=== PATIENT | male | born 1990 | race African-American/Black ===

== ENCOUNTER 2016-04-05 18:20 | Emergency (ER) | payer MEDICAID ==
[~2016-04-05] VITALS: Ht 188 cm; Wt 68.0 kg
[~2016-04-05 18:20] MED LIST: ONDA4TAB7 SL; Z.0.HUMULIN REGULARU SQ; [UNRECOGNIZED DRUG - REMARK]
[2016-04-05 18:24] VITALS: BP 134/81; PULSE 88; RESP 16; TEMP 98.5; O2SAT 98
[2016-04-05] MEDS ORDERED: SODIUM CHLOR 0.9% 1000 ML INJ 1,000 ML IV ONE ×2 (19:30→20:00)
[2016-04-05] MEDS ORDERED: SODIUM CHLORIDE 0.9% FLUSH 5 ML FLUSH IVF PRN (19:30)
[2016-04-05] MEDS ORDERED: INSU100V2 SQ ×3 (19:35→21:50)
[2016-04-05] MEDS ORDERED: HIV (19:36)
[2016-04-05 19:59] LABS: BLOOD GAS VENOUS BASE EXCESS 4.7 mmol/L (-2-2); BLOOD GAS VENOUS HCO3 29 mmol/L (22-26); BLOOD GAS VENOUS O2 HGB SAT 53 % (70-76); BLOOD GAS VENOUS PCO2 47 mmHg (44-48); BLOOD GAS VENOUS PO2 29 mmHg (35-40); BLOOD GAS VENOUS pH 7.41 (7.360-7.400); CRITICAL VALUE YES; TEMP CORR TO 98.6
[2016-04-05 20:00] LABS: FIO2 21 %; STAT YES
[2016-04-05 20:01] VITALS: O2SAT 98
--- NOTE | 2016-04-05 20:02 | PD ---
HPI Chief Complaint: Diabetic Time Seen by Provider: 19:30 Travel History International Travel<30 days: No Contact w/Intl Traveler<30days: No Traveled to known affect area: No History of Present Illness HPI 25-year-old man who presents to the emergency department complaining of elevated blood sugar. Reports been out of his insulin for the past 3 weeks. He went to primary care doctor and a blood sugar in the 600s so is referred to the emergency department. Complains of headache weakness dizziness, as well as polyuria and polydipsia. His a history of HIV, reports his last CD4 count was "good". Denies history of AIDS or opportunistic infections. He states he takes a medicine twice daily but does not read the name of it. He does state he has been taking his HIV medications. History Past Medical History Narrative Medical HIV Diabetes Influenza Vaccination: Yes Social History Alcohol Use: No Tobacco Use: No Allergies-Medications (Allergen,Severity, Reaction): Coded Allergies: Aspirin (Verified Allergy, Severe, SWELLING, 04/05/16) Reported Meds & Prescriptions Reported Meds & Active Scripts Active Reported [Hiv ] Humulin R Inj (Insulin Human Regular) 1,000 Unit/10 Ml Vial 2-10 Units SQ TIDAC PRN IMPORTANT TO EAT A MEAL WITHIN 30-60 MINUTES OF DOSING Humulin R Inj (Insulin Human Regular) 1,000 Unit/10 Ml Vial 1-9 Units SQ ACHS Max dose at bedtime( )units; sugars < 70(0)units; sugars 150-199,(1)unit; sugars 200-249(3)units; sugars 250-299,(5)units; sugars 300-349(7)units; sugars more than 349(9)units. Review of Systems Except as stated in HPI: all other systems reviewed are Neg Physical Exam Narrative GENERAL: 25-year-old man, no acute distress. SKIN: Warm and dry. HEAD: Atraumatic. Normocephalic. EYES: Pupils equal and round. No scleral icterus. No injection or drainage. ENT: No nasal bleeding or discharge. Mucous membranes pink and moist. NECK: Trachea midline. No JVD. CARDIOVASCULAR: Regular rate and rhythm. No murmur appreciated. RESPIRATORY: Minimal tachypnea. No accessory muscle use. Clear to auscultation. Breath sounds equal bilaterally. GASTROINTESTINAL: Abdomen soft, non-tender, nondistended. Hepatic and splenic margins not palpable. MUSCULOSKELETAL: No obvious deformities. No edema. NEUROLOGICAL: Awake and alert. No obvious cranial nerve deficits. Motor grossly within normal limits. Normal speech. Data Data Last Documented VS Vital Signs Date Time Temp Pulse Resp B/P Pulse Ox O2 Delivery O2 Flow Rate FiO2 04/05/16 20:01 98 Room Air 04/05/16 18:24 98.5 88 16 134/81 Orders Complete Blood Count With Diff (04/05/16 19:30) Comprehensive Metabolic Panel (04/05/16 19:30) Beta Hydroxybutyrate (Acetone) (04/05/16 19:30) Urinalysis - C+S If Indicated (04/05/16 19:30) Blood Gas Venous (Vbg) (04/05/16 19:30) Ecg Monitoring (04/05/16:30) Iv Access Insert/Monitor (04/05/16:30) Oximetry (04/05/16 19:30) NPO (04/05/16 19:30) Sodium Chlor 0.9% 1000 Ml Inj (Ns 1000 M (04/05/16 19:30) Sodium Chlor 0.9% 1000 Ml Inj (Ns 1000 M (04/05/16 20:00) Sodium Chloride 0.9% Flush (Ns Flush) (04/05/16 19:30) Insulin Aspart Inj (Novolog Inj) (04/05/16 20:15) Labs Laboratory Tests Test 04/05/16 04/05/16 19:48 21:03 White Blood Count 3.8 TH/MM3 Red Blood Count 4.96 MIL/MM3 Hemoglobin 13.6 GM/DL Hematocrit 39.8 % Mean Corpuscular Volume 80.2 FL Mean Corpuscular Hemoglobin 27.5 PG Mean Corpuscular Hemoglobin 34.2 % Concent Red Cell Distribution Width 13.0 % Platelet Count 201 TH/MM3 Mean Platelet Volume 8.8 FL Neutrophils (%) (Auto) 51.3 % Lymphocytes (%) (Auto) 23.8 % Monocytes (%) (Auto) 11.6 % Eosinophils (%) (Auto) 12.5 % Basophils (%) (Auto) 0.8 % Neutrophils # (Auto) 2.0 TH/MM3 Lymphocytes # (Auto) 0.9 TH/MM3 Monocytes # (Auto) 0.4 TH/MM3 Eosinophils # (Auto) 0.5 TH/MM3 Basophils # (Auto) 0.0 TH/MM3 CBC Comment DIFF FINAL Differential Comment Blood Gas Puncture Site Blood Gas Patient Temperature 98.6 Venous Blood pH 7.41 Venous Blood Partial Pressure 47 mmHg CO2 Venous Blood Partial Pressure 29 mmHg O2 Venous Blood HCO3 29 mmol/L Venous Blood Oxygen Saturation 53 % Venous Blood Oxygen Content 10.0 Vol % Venous Blood Base Excess 4.7 mmol/L Blood Gas Inspired Oxygen 21 % Sodium Level 134 MEQ/L Potassium Level 3.9 MEQ/L Chloride Level 98 MEQ/L Carbon Dioxide Level 28.8 MEQ/L Anion Gap 7 MEQ/L Blood Urea Nitrogen 8 MG/DL Creatinine 1.06 MG/DL Estimat Glomerular Filtration 102 ML/MIN Rate Random Glucose 323 MG/DL Calcium Level 8.8 MG/DL Total Bilirubin 0.5 MG/DL Aspartate Amino Transf 14 U/L (AST/SGOT) Alanine Aminotransferase 18 U/L (ALT/SGPT) Alkaline Phosphatase 102 U/L Total Protein 9.3 GM/DL Albumin 3.8 GM/DL B-Hydroxybutyrate 0.60 MMOL/L Urine Color YELLOW Urine Turbidity CLEAR Urine pH 6.5 Urine Specific Frakes 1.041 Urine Protein NEG mg/dL Urine Glucose (UA) 1000 mg/dL Urine Ketones 10 mg/dL Urine Occult Blood NEG Urine Nitrite NEG Urine Bilirubin NEG Urine Urobilinogen LESS THAN 2.0 MG/DL Urine Leukocyte Esterase MOD Urine WBC 5 /hpf Urine Squamous Epithelial <1 /hpf Cells Microscopic Urinalysis Comment CULT NOT INDICATED MDM Medical Decision Making Medical Screen Exam Complete: Yes Emergency Medical Condition: Yes Interpretation(s) CBC remarkable for white count 3.8, absolute lymphocyte count 0.9 CMP is unremarkable, glucose 323 VBG 7.41, base excess 4.7 UA remarkable for glucose in the urine Beta hydroxybutyrate 0.6 Differential Diagnosis Hyperglycemia, dehydration, occult infection, other Narrative Course Medical decision making 25-year-old man with hyperglycemia, without evidence significant decay. Likely dehydration. Will be given IV fluids, insulin, reassess. Diagnosis Primary Impression: Hyperglycemia Additional Instructions: Take insulin as prescribed. HER primary doctor in the next 2-4 days. Return to the emergency department for any new or worsening symptoms. Med/Other Pt SpecificInfo: Prescription(s) given Scripts Insulin Human Regular Inj (Humulin R Inj)1,000 Unit/10 Ml Vial1-9 Units SQ ACHS #10 ML Max dose at bedtime( )units; sugars < 70(0)units; sugars 150-199,(1)unit; sugars 200-249(3)units; sugars 250-299,(5)units; sugars 300-349(7)units; sugars more than 349(9)units. Prov:Riaz Collins MD 04/05/16 Disposition: 01 DISCHARGE HOME Condition: Stable Riaz Collins MD Apr 05, 2016 20:02
[2016-04-05 20:07] LABS: BASOPHIL % 0.8 % (0.0-2.0); EOSINOPHIL # 0.5 TH/MM3 (0-0.4); EOSINOPHIL % 12.5 % (0.0-4.0); HEMATOCRIT 39.8 % (39.0-51.0); HEMO FLAGS DIFF FINAL; LYMPH % 23.8 % (9.0-44.0); LYMPHOCYTE # 0.9 TH/MM3 (1.0-4.8); MEAN CELL VOLUME 80.2 FL (80.0-100.0); MEAN CORPUSCULAR HEMOGLOBIN 27.5 PG (27.0-34.0); MEAN CORPUSCULAR HGB CONC 34.2 % (32.0-36.0); MONO % 11.6 % (0.0-8.0); NEUT % 51.3 % (16.0-70.0); PLATELET COUNT 201 TH/MM3 (150-450); RED BLOOD COUNT 4.96 MIL/MM3 (4.50-5.90); WHITE BLOOD COUNT 3.8 TH/MM3 (4.0-11.0)
[2016-04-05] MEDS ORDERED: INSULIN ASPART 1,000 UNITS/10 ML VIAL SQ ONE (20:15)
[2016-04-05 20:26] LABS: ALKALINE PHOSPHATASE 102 U/L (45-117); ALT (GPT) 18 U/L (12-78); ANION GAP 7 MEQ/L (5-15); AST (GOT) 14 U/L (15-37); BICARBONATE 28.8 MEQ/L (21.0-32.0); BLOOD UREA NITROGEN 8 MG/DL (7-18); CHLORIDE 98 MEQ/L (98-107); GLOMERULAR FILTRATION RATE 102 ML/MIN (>89); POTASSIUM 3.9 MEQ/L (3.5-5.1); SODIUM (NA) 134 MEQ/L (136-145); TOTAL BILIRUBIN ADULT 0.5 MG/DL (0.2-1.0)
[2016-04-05 21:36] LABS: BLOOD, URINE NEG (NEG); COMMENT (UR) CULT NOT INDICATED; CULTURE IF INDICATED CULT NOT INDICATED; GLUCOSE,URINE 1000 mg/dL (NEG); KETONE, URINE 10 mg/dL (NEG); NITRITE,URINE NEG (NEG); PH, URINE 6.5 (5.0-8.5); SQUAMOUS EPITHELIAL CELL URINE <1 /hpf (0-5); URINE COLOR YELLOW (YELLW/STRAW)
[2016-04-05 21:51] VITALS: BP 130/88
== END 2016-04-05 22:30 | disposition home or self-care (01) ==
LOC: NEPE 18:20
DX: E11.65 Type 2 diabetes mellitus with hyperglycemia (principal); B20 Human immunodeficiency virus [HIV] disease; Z79.4 Long term (current) use of insulin
CPT/HCPCS: 80053; 81001; 82010; 82805; 85025; 96360; 96372; 99284; J1815; J7030

== ENCOUNTER 2016-06-12 00:30 | Emergency (ER) | payer MEDICAID ==
[~2016-06-12] VITALS: Ht 188 cm; Wt 82.0 kg
[~2016-06-12 00:30] MED LIST changes: +HIV; +INSU100V2 SQ; -ONDA4TAB7 SL; -Z.0.HUMULIN REGULARU SQ; -[UNRECOGNIZED DRUG - REMARK]
[2016-06-12 00:33] VITALS: BP 128/72; PULSE 94; RESP 14; TEMP 97.5; O2SAT 98
--- NOTE | 2016-06-12 04:00 | PD ---
HPI Chief Complaint: Cold / Flu Symptoms Time Seen by Provider: 03:26 Travel History International Travel<30 days: No Contact w/Intl Traveler<30days: No Traveled to known affect area: No History of Present Illness HPI 25-year-old male complains of body ache, chest wall pain mild dry cough and nausea and abdominal cramping. Patient states the symptoms started about 2 hours prior coming to the emergency room. Patient denies any vomiting or diarrhea. Patient denies dysuria or frequency. Patient denies any fever chills. Patient states the chest wall pain is sharp pain and worse with deep inspiration. PFSH Past Medical History Asthma: Yes Autoimmune Disease: Yes (HIV) Blood Disorders: No Cancer: No Cardiovascular Problems: No COPD: No Diabetes: Yes Patient Takes Glucophage: Yes (METFORMIN 06/11/16 0830) Diminished Hearing: No Endocrine: Yes Gastrointestinal Disorders: Yes (GASTRITIS) Genitourinary: No Immune Disorder: No Implanted Vascular Access Dvce: No Musculoskeletal: No Neurologic: No Psychiatric: No Reproductive: No Respiratory: Yes Sleep Apnea: No Thyroid Disease: No Past Surgical History Genitourinary Surgery: Yes (SCOPE) Pacemaker: No Other Surgery: Yes (ankle) Social History Alcohol Use: Yes (RARE) Tobacco Use: No Substance Use: No Allergies-Medications (Allergen,Severity, Reaction): Coded Allergies: Aspirin (Verified Allergy, Severe, SWELLING, 06/12/16) Reported Meds & Prescriptions Reported Meds & Active Scripts Active Humulin R Inj (Insulin Human Regular) 1,000 Unit/10 Ml Vial 1-9 Units SQ ACHS Max dose at bedtime( )units; sugars < 70(0)units; sugars 150-199,(1)unit; sugars 200-249(3)units; sugars 250-299,(5)units; sugars 300-349(7)units; sugars more than 349(9)units. Reported [Hiv ] Humulin R Inj (Insulin Human Regular) 1,000 Unit/10 Ml Vial 2-10 Units SQ TIDAC PRN IMPORTANT TO EAT A MEAL WITHIN 30-60 MINUTES OF DOSING Review of Systems General / Constitutional: No: Fever Eyes: No: Visual changes HENT: No: Headaches Cardiovascular: Positive: Chest Pain or Discomfort Respiratory: No: Shortness of Breath Gastrointestinal: No: Abdominal Pain Genitourinary: No: Dysuria Musculoskeletal: Positive: Pain Skin: No Rash Neurologic: No: Weakness Psychiatric: No: Depression Endocrine: No: Polydipsia Hematologic/Lymphatic: No: Easy Bruising Physical Exam Narrative GENERAL: Well-nourished, well-developed patient. SKIN: Focused skin assessment warm/dry. HEAD: Normocephalic. EYES: No scleral icterus. No injection or drainage. NECK: Supple, trachea midline. No JVD or lymphadenopathy. CARDIOVASCULAR: Regular rate and rhythm without murmurs, gallops, or rubs. RESPIRATORY: Breath sounds equal bilaterally. No accessory muscle use. GASTROINTESTINAL: Abdomen soft, non-tender, nondistended. MUSCULOSKELETAL: No cyanosis, or edema. BACK: Nontender without obvious deformity. No CVA tenderness. Neurologic exam normal. Data Data Last Documented VS Vital Signs Date Time Temp Pulse Resp B/P Pulse Ox O2 Delivery O2 Flow Rate FiO2 06/12/16 02:52 84 20 99 06/12/16 00:33 97.5 128/72 Orders Influenzae A/B Antigen (06/12/16 03:56) Chest, Single Ap (06/12/16 03:56) Blood Glucose (06/12/16 03:56) MDM Medical Decision Making Medical Screen Exam Complete: Yes Emergency Medical Condition: Yes Interpretation(s) Last Impressions Chest X-Ray 06/12/16 0356 Signed Impressions: Service Date/Time: Sunday, June 12, 2016 03:56 - CONCLUSION: Normal examination. Riaz Briggs MD Differential Diagnosis Differential diagnosis including viral syndrome, bronchitis, pneumonia, gastroenteritis, hyperglycemia, DKA. Narrative Course 25-year-old male with chest wall pain body ache nausea abdominal cramping. Diagnosis Primary Impression: Viral syndrome Patient Instructions: General Instructions Additional Instructions: Tylenol as needed for aching pain and fever. Follow-up with personal physician. Return if worse. Med/Other Pt SpecificInfo: No Meds Exist/No RX given Disposition: DISCHARGE HOME Condition: Stable Aron Licona MD Jun 12, 2016 04:00
--- NOTE | 2016-06-12 04:12 | RADRPT ---
EXAM DATE/TIME: 06/12/2016 03:56 [facility] COMPARISON: CHEST SINGLE AP, March 27, 2014, 0:17. INDICATIONS : Chest pain. MEDICAL HISTORY : None. SURGICAL HISTORY : None. ENCOUNTER: Initial ACUITY: 1 day PAIN SCORE: 0/10 LOCATION: Bilateral chest FINDINGS: A single view of the chest demonstrates the lungs to be symmetrically aerated without evidence of mas s, infiltrate or effusion. The cardiomediastinal contours are unremarkable. Osseous structures are intact. CONCLUSION: Normal examination. Riaz Briggs MD on June 12, 2016 at 4:11 Board Certified Radiologist. This report was verified electronically.
[2016-06-12] MEDS ORDERED: ACETAMINOPHEN 325 MG TAB PO ONE (04:45)
[2016-06-12 06:05] VITALS: BP 117/76
== END 2016-06-12 06:39 | disposition home or self-care (01) ==
LOC: NEPC 00:30
DX: B34.9 Viral infection, unspecified (principal); B20 Human immunodeficiency virus [HIV] disease; E11.9 Type 2 diabetes mellitus without complications; Z79.4 Long term (current) use of insulin
CPT/HCPCS: 71010; 87804; 99284

== ENCOUNTER 2016-06-14 10:54 | Emergency (ER) | payer MEDICAID ==
[~2016-06-14] VITALS: Ht 188 cm; Wt 81.5 kg
[2016-06-14 10:57] VITALS: BP 133/80; PULSE 74; RESP 18; TEMP 98; O2SAT 99
--- NOTE | 2016-06-14 11:11 | PD ---
HPI . left sided jaw pain upper and lower Chief Complaint: Oral / Dental Pain or Problem Time Seen by Provider: 11:10 Travel History International Travel<30 days: No Contact w/Intl Traveler<30days: No Traveled to known affect area: No History of Present Illness HPI 25-year-old male with history of diabetes and HIV here for complaints of left upper and lower jaw pain. Patient tells me that he does have bad teeth and has seen a dentist, but was told that he needs to wait for test results before he can get further treatment. When asked about what test results he tells me that an evaluation is pending whether or not he will actually need orthodontics. Patient is complaining of left-sided jaw pain that is not radiating elsewhere. He rates it as an aching & throbbing sensation. Currently the pain is 6/10. He has not tried any [id number] medications. He is somewhat of a poor historian. He tells me that he does not have HIV, that he only has a virus. He is following with a doctor in [place]. He denies any fever or chills. He has no other complaints. PFSH Past Medical History Asthma: Yes Autoimmune Disease: Yes (HIV) Blood Disorders: No Cancer: No Cardiovascular Problems: No COPD: No Diabetes: Yes Diminished Hearing: No Endocrine: Yes Gastrointestinal Disorders: Yes (GASTRITIS) Genitourinary: No Immune Disorder: No Implanted Vascular Access Dvce: No Musculoskeletal: No Neurologic: No Psychiatric: No Reproductive: No Respiratory: Yes Sleep Apnea: No Thyroid Disease: No Past Surgical History Genitourinary Surgery: Yes (SCOPE) Pacemaker: No Other Surgery: Yes (ankle) Social History Alcohol Use: Yes (RARE) Tobacco Use: No Substance Use: No Allergies-Medications (Allergen,Severity, Reaction): Coded Allergies: Aspirin (Verified Allergy, Severe, SWELLING, 06/14/16) Reported Meds & Prescriptions Reported Meds & Active Scripts Active Humulin R Inj (Insulin Human Regular) 1,000 Unit/10 Ml Vial 1-9 Units SQ ACHS Max dose at bedtime( )units; sugars < 70(0)units; sugars 150-199,(1)unit; sugars 200-249(3)units; sugars 250-299,(5)units; sugars 300-349(7)units; sugars more than 349(9)units. Reported [Hiv ] Humulin R Inj (Insulin Human Regular) 1,000 Unit/10 Ml Vial 2-10 Units SQ TIDAC PRN IMPORTANT TO EAT A MEAL WITHIN 30-60 MINUTES OF DOSING Review of Systems General / Constitutional: No: Fever Eyes: No: Visual changes HENT: Positive: Dental Difficulties, No: Headaches Cardiovascular: No: Chest Pain or Discomfort Respiratory: No: Shortness of Breath Gastrointestinal: No: Abdominal Pain Genitourinary: No: Dysuria Musculoskeletal: No: Pain Skin: No Rash Neurologic: No: Weakness Psychiatric: No: Depression Endocrine: No: Polydipsia Hematologic/Lymphatic: No: Easy Bruising Physical Exam Narrative GENERAL: AAO x 3, no acute distress, Well-nourished, well-developed patient. SKIN: Warm and dry. No visible rashes or bruising. HEAD: Normocephalic and atraumatic. EYES: No scleral icterus. No injection or drainage. ENT: No nasal drainage noted. Mucous membranes pink. Airway patent. Very poor dentition. Multiple missing teeth throughout oral cavity. On the upper left and lower left there are multiple dental caries, rotting teeth and broken teeth. #20, 19, 18, 17, 16, 15, 14 and 13 are all affected fluid collection. No definitive abscess. NECK: Supple, trachea midline. No JVD. Lymphadenopathy CARDIOVASCULAR: Regular rate and rhythm without murmurs, gallops, or rubs. RESPIRATORY: Breath sounds equal bilaterally. No accessory muscle use. No rhonchi or rales. GASTROINTESTINAL: Visual inspection is normal EXTREMITIES: No cyanosis or edema. BACK: Nontender without obvious deformity. No CVA tenderness. PSYCH: AAO x 3, normal affect. Data Data Last Documented VS Vital Signs Date Time Temp Pulse Resp B/P Pulse Ox O2 Delivery O2 Flow Rate FiO2 06/14/16 10:57 98.0 74 18 133/80 99 MDM Medical Decision Making Medical Screen Exam Complete: Yes Emergency Medical Condition: Yes Medical Record Reviewed: Yes Differential Diagnosis Dentalgia, dental caries, less likely oral abscess Narrative Course 25-year-old male with history of diabetes and HIV here for complaints of left upper and lower jaw pain. Patient tells me that he does have bad teeth and has seen a dentist, but was told that he needs to wait for test results before he can get further treatment. When asked about what test results he tells me that an evaluation is pending whether or not he will actually need orthodontics. Patient is complaining of left-sided jaw pain that is not radiating elsewhere. He rates it as an aching & throbbing sensation. Currently the pain is 6/10. He has not tried any [id number] medications. He is somewhat of a poor historian. He tells me that he does not have HIV, that he only has a virus. He is following with a doctor in [place]. He denies any fever or chills. He has no other complaints. Patient seen and examined. He has multiple dental caries, rotting teeth and broken teeth. He does not have any type of fluid collection or abscess. He does not have any evidence of cellulitis. He has no lymphadenopathy. He needs to see a dentist immediately. I've advised him to try to reach out to his dentist as soon as possible for further care and treatment. I've also advised him to follow up with his infectious disease doctor if they can as they can possibly help him make arrangements to get treatment. He can use [id number] pain medications as needed. I've explained to him that he does not need antibiotics as there is no active infection. Patient verbalized understanding of instructions, questions were answered, and thanked me for their care. I advised them if their condition worsens, please return to the nearest emergency room for further care. Diagnosis Primary Impression: Dentalgia Additional Impression: Dental caries Patient Instructions: General Instructions Additional Instructions: Please see a dentist as soon as possible for extractions of these teeth. You can use Tylenol and Motrin as needed for pain. Disposition: 01 DISCHARGE HOME Condition: Stable Lakeisha Guerra Jun 14, 2016 11:11
== END 2016-06-14 11:28 | disposition home or self-care (01) ==
LOC: NEPK 10:54
DX: K02.9 Dental caries, unspecified (principal); E11.9 Type 2 diabetes mellitus without complications; R68.84 Jaw pain; J45.909 Unspecified asthma, uncomplicated
CPT/HCPCS: 99283

== ENCOUNTER 2016-07-06 11:44 | Emergency (ER) | payer MEDICAID ==
[~2016-07-06] VITALS: Ht 188 cm; Wt 72.0 kg
[2016-07-06 11:45] VITALS: BP 119/81; PULSE 99; RESP 17; TEMP 98.2; O2SAT 98
[2016-07-06] MEDS ORDERED: SODIUM CHLOR 0.9% 1000 ML INJ 1,000 ML IV ONE ×2 (12:13→12:43)
[2016-07-06] MEDS ORDERED: SODIUM CHLORIDE 0.9% FLUSH 10 ML FLUSH IVF PRN (12:15)
[2016-07-06 12:41] VITALS: O2SAT 97
[2016-07-06 12:46] LABS: BASOPHIL % 0.5 % (0.0-2.0); EOSINOPHIL # 0.5 TH/MM3 (0-0.4); EOSINOPHIL % 12.6 % (0.0-4.0); HEMATOCRIT 38.6 % (39.0-51.0); HEMO FLAGS DIFF FINAL; LYMPHOCYTE # 0.7 TH/MM3 (1.0-4.8); MEAN CELL VOLUME 79.6 FL (80.0-100.0); MEAN CORPUSCULAR HEMOGLOBIN 27.1 PG (27.0-34.0); MONO % 13.4 % (0.0-8.0); NEUT % 54.5 % (16.0-70.0); PLATELET COUNT 263 TH/MM3 (150-450); RED BLOOD COUNT 4.85 MIL/MM3 (4.50-5.90); RED CELL DISTRIBUTION WIDTH 12.7 % (11.6-17.2); WHITE BLOOD COUNT 3.6 TH/MM3 (4.0-11.0)
--- NOTE | 2016-07-06 12:51 | RADRPT ---
EXAM DATE/TIME: 07/06/2016 12:27 [facility] COMPARISON: CHEST SINGLE AP, June 12, 2016, 3:56. INDICATIONS : Chest pain. MEDICAL HISTORY : HIV Diabetes mellitus type II. SURGICAL HISTORY : None. ENCOUNTER: Initial ACUITY: 1 day PAIN SCORE: 2/10 LOCATION: Bilateral chest FINDINGS: A single view of the chest demonstrates the lungs to be symmetrically aerated without evidence of mas s, infiltrate or effusion. The cardiomediastinal contours are unremarkable. Osseous structures are intact. CONCLUSION: No acute disease. Ayo Qureshi MD on July 06, 2016 at 12:49 Board Certified Radiologist. This report was verified electronically.
[2016-07-06 13:06] LABS: BICARBONATE 29.1 MEQ/L (21.0-32.0)
[2016-07-06 13:08] LABS: BETA-HYDROXYBUTYRATE 0.11 MMOL/L (0.00-0.39)
--- NOTE | 2016-07-06 13:18 | PD ---
HPI Chief Complaint: Diabetic Time Seen by Provider: 12:11 Travel History International Travel<30 days: No Contact w/Intl Traveler<30days: No Traveled to known affect area: No History of Present Illness HPI 18-year-old male states he had chest pain which started while he was walking about an hour or so ago. He states he was walking to get some exercise. There is no radiation. He has had similar chest pain previously. He's had no fever or cough. He reports his blood sugar was 441 this morning. Upon arrival to the ER the blood sugar was 281. Took 5 units insulin at home. He describes a sharp quality. He has no family history of early onset coronary artery disease. He has a history of hypertension. He has no diabetes or hyperlipidemia. He does not smoke. PFSH Past Medical History Asthma: Yes Autoimmune Disease: Yes (HIV) Blood Disorders: No Cancer: No Cardiovascular Problems: No COPD: No Diabetes: Yes Patient Takes Glucophage: No Diminished Hearing: No Endocrine: Yes Gastrointestinal Disorders: Yes (GASTRITIS) Genitourinary: No Immune Disorder: Yes (HIV) Implanted Vascular Access Dvce: No Musculoskeletal: No Neurologic: No Psychiatric: No Reproductive: No Respiratory: Yes Sleep Apnea: No Thyroid Disease: No Past Surgical History Genitourinary Surgery: Yes (SCOPE) Pacemaker: No Other Surgery: Yes (ankle) Social History Alcohol Use: Yes (RARE) Tobacco Use: No Substance Use: No Allergies-Medications (Allergen,Severity, Reaction): Coded Allergies: Aspirin (Verified Allergy, Severe, SWELLING, 07/06/16) Reported Meds & Prescriptions Reported Meds & Active Scripts Active Humulin R Inj (Insulin Human Regular) 1,000 Unit/10 Ml Vial 1-9 Units SQ ACHS Max dose at bedtime( )units; sugars < 70(0)units; sugars 150-199,(1)unit; sugars 200-249(3)units; sugars 250-299,(5)units; sugars 300-349(7)units; sugars more than 349(9)units. Reported [Hiv ] Humulin R Inj (Insulin Human Regular) 1,000 Unit/10 Ml Vial 2-10 Units SQ TIDAC PRN IMPORTANT TO EAT A MEAL WITHIN 30-60 MINUTES OF DOSING Review of Systems Except as stated in HPI: all other systems reviewed are Neg Physical Exam Narrative GENERAL: 26-year-old male well-nourished well-developed no acute distress SKIN: Focused skin assessment warm/dry. HEAD: Atraumatic. Normocephalic. EYES: Pupils equal and round. No scleral icterus. No injection or drainage. ENT: No nasal bleeding or discharge. Mucous membranes pink and moist. NECK: Trachea midline. No JVD. CARDIOVASCULAR: Regular rate and rhythm. No murmur appreciated. No tenderness along the chest wall. RESPIRATORY: No accessory muscle use. Clear to auscultation. Breath sounds equal bilaterally. GASTROINTESTINAL: Abdomen soft, non-tender, nondistended. Hepatic and splenic margins not palpable. MUSCULOSKELETAL: No obvious deformities. No clubbing. No cyanosis. No edema. NEUROLOGICAL: Awake and alert. No obvious cranial nerve deficits. Motor grossly within normal limits. Normal speech. PSYCHIATRIC: Appropriate mood and affect; insight and judgment normal. Data Data Last Documented VS Vital Signs Date Time Temp Pulse Resp B/P Pulse Ox O2 Delivery O2 Flow Rate FiO2 07/06/16 12:41 97 Room Air 07/06/16 11:45 98.2 99 17 119/81 Vital signs reviewed Orders Electrocardiogram (07/06/16 12:13) Complete Blood Count With Diff (07/06/16 12:13) Beta Hydroxybutyrate (Acetone) (07/06/16 12:13) Chest, Single Ap (07/06/16 12:13) Ecg Monitoring (07/06/16 12:13) Iv Access Insert/Monitor (07/06/16 12:13) Oximetry (07/06/16 12:13) NPO (07/06/16 12:13) Sodium Chlor 0.9% 1000 Ml Inj (Ns 1000 M (07/06/16 12:13) Sodium Chlor 0.9% 1000 Ml Inj (Ns 1000 M (07/06/16 12:43) Sodium Chloride 0.9% Flush (Ns Flush) (07/06/16 12:15) Basic Metabolic Panel (Bmp) (07/06/16 12:13) Labs Laboratory Tests Test 07/06/16 12:30 White Blood Count 3.6 TH/MM3 Red Blood Count 4.85 MIL/MM3 Hemoglobin 13.2 GM/DL Hematocrit 38.6 % Mean Corpuscular Volume 79.6 FL Mean Corpuscular Hemoglobin 27.1 PG Mean Corpuscular Hemoglobin 34.0 % Concent Red Cell Distribution Width 12.7 % Platelet Count 263 TH/MM3 Mean Platelet Volume 8.4 FL Neutrophils (%) (Auto) 54.5 % Lymphocytes (%) (Auto) 19.0 % Monocytes (%) (Auto) 13.4 % Eosinophils (%) (Auto) 12.6 % Basophils (%) (Auto) 0.5 % Neutrophils # (Auto) 2.0 TH/MM3 Lymphocytes # (Auto) 0.7 TH/MM3 Monocytes # (Auto) 0.5 TH/MM3 Eosinophils # (Auto) 0.5 TH/MM3 Basophils # (Auto) 0.0 TH/MM3 CBC Comment DIFF FINAL Differential Comment Sodium Level 135 MEQ/L Potassium Level 4.0 MEQ/L Chloride Level 99 MEQ/L Carbon Dioxide Level 29.1 MEQ/L Anion Gap 7 MEQ/L Blood Urea Nitrogen 16 MG/DL Creatinine 0.97 MG/DL Estimat Glomerular Filtration 112 ML/MIN Rate Random Glucose 272 MG/DL Calcium Level 9.0 MG/DL B-Hydroxybutyrate 0.11 MMOL/L MDM Medical Decision Making Medical Screen Exam Complete: Yes Emergency Medical Condition: Yes Medical Record Reviewed: Yes Differential Diagnosis NSTEMI, unstable angina, coronary vasospasm, PE, PTX, aortic dissection, pericarditis, myocarditis, endocarditis, PNA, esophageal disease, aneurysm, musculoskeletal etiologies, anxiety, cocaine/sympathomimetic abuse Narrative Course CBC & BMP Diagram 07/06/16 12:30 Beta hydroxybutyrate 0.11 EKG reveals a sinus rhythm with an early repolarization morphology in the precordial leads which is been seen previously normal axis and intervals The patient reports by reassessment that he has HIV and that he follows up with Dr. Mccain. He has an appointment on the , about 8 days from today. He is unaware of his CD4 count or viral load but states that both are probably good. Upon reassessment at 1:15 PM the patient is resting comfortably and feels better , is alert and in no distress. The patients results and examination findings were discussed. The repeat examination is unremarkable and benign. The history , exam, diagnostic testing, and current condition do not suggest any significant pathology to warrant further testing, continued ED treatment, admission, or surgical evaluation at this point. The vital signs have been stable. The patient does not have uncontrollable pain, intractable vomiting, or other significant symptoms. The patient's condition is stable and appropriate for discharge. The patient will pursue further outpatient evaluation with a primary care physician or other designated or consulting physician as indicated in the discharge instructions. The patient expressed understanding and was agreeable with this plan. Diagnosis Primary Impression: Chest pain Qualified Code: R07.9 - Chest pain, unspecified type Referrals: DR JAMES 2 days Additional Instructions: You have a choice when it comes to health care, and we are glad that you chose [facility]. Hopefully, we have met your expectations on today's visit. You are welcome to return to [facility] at any time, as we are committed to meeting the health care needs of our community. Med/Other Pt SpecificInfo: No Change to Meds Disposition: 01 DISCHARGE HOME Condition: Stable Rajat Franco MD July 06, 2016 13:18
[2016-07-06 14:25] VITALS: BP 121/79; PULSE 64; RESP 16; O2SAT 100
--- NOTE | 2016-07-07 15:03 | EKG ---
Date Performed: 07/06/2016 Time Performed: 12:19:59 PTAGE: 26 years EKG: Sinus rhythm ST ELEVATION, PROBABLY EARLY REPOLARIZATION NONSPECIFIC ST & T-WAVE ABNORMALITY Since previous hosea ng, no significant change noted BORDERLINE ECG PREVIOUS TRACING : 03/19/2014 14.14 DOCTOR: Josephine Kirby Interpretating Date/Time 07/07/2016 15:02:44
== END 2016-07-06 14:28 | disposition home or self-care (01) ==
LOC: NEPC 11:44
DX: R07.9 Chest pain, unspecified (principal); J45.909 Unspecified asthma, uncomplicated; E11.9 Type 2 diabetes mellitus without complications; R94.31 Abnormal electrocardiogram [ECG] [EKG]
CPT/HCPCS: 71010; 80048; 82010; 85025; 93005; 96360; 99285; J7030

== ENCOUNTER 2016-07-11 15:34 | Emergency (ER) | payer MEDICAID ==
[2016-07-11 15:36] VITALS: BP 123/78; PULSE 87; RESP 18; TEMP 98.6; O2SAT 99
--- NOTE | 2016-07-11 15:49 | PD ---
HPI . left knee pain > 4 weeks Chief Complaint: Pain: Acute or Chronic Time Seen by Provider: 15:49 Travel History International Travel<30 days: No Contact w/Intl Traveler<30days: No Traveled to known affect area: No History of Present Illness HPI 26-year-old male here with complaints of left knee pain for over 4 weeks. Patient says he thinks he may have twisted his knee some while back and he is here to have it checked. He tells me that he thinks it may be swollen. He has not yet seen his primary care provider for this issue. He is ambulatory, but tells me that it is painful when he is walking. He denies any recent injury or trauma to the area. He has no other complaints. PFSH Past Medical History Asthma: Yes Autoimmune Disease: Yes (HIV) Blood Disorders: No Cancer: No Cardiovascular Problems: No COPD: No Diabetes: Yes Diminished Hearing: No Endocrine: Yes Gastrointestinal Disorders: Yes (GASTRITIS) Genitourinary: No Immune Disorder: Yes (HIV) Implanted Vascular Access Dvce: No Musculoskeletal: No Neurologic: No Psychiatric: No Reproductive: No Respiratory: Yes Sleep Apnea: No Thyroid Disease: No Past Surgical History Genitourinary Surgery: Yes (SCOPE) Pacemaker: No Other Surgery: Yes (ankle) Social History Alcohol Use: Yes (RARE) Tobacco Use: No Substance Use: No Allergies-Medications (Allergen,Severity, Reaction): Coded Allergies: Aspirin (Verified Allergy, Severe, SWELLING, 07/06/16) Reported Meds & Prescriptions Reported Meds & Active Scripts Active Humulin R Inj (Insulin Human Regular) 1,000 Unit/10 Ml Vial 1-9 Units SQ ACHS Max dose at bedtime( )units; sugars < 70(0)units; sugars 150-199,(1)unit; sugars 200-249(3)units; sugars 250-299,(5)units; sugars 300-349(7)units; sugars more than 349(9)units. Reported [Hiv ] Humulin R Inj (Insulin Human Regular) 1,000 Unit/10 Ml Vial 2-10 Units SQ TIDAC PRN IMPORTANT TO EAT A MEAL WITHIN 30-60 MINUTES OF DOSING Review of Systems General / Constitutional: No: Fever Eyes: No: Visual changes HENT: No: Headaches Cardiovascular: No: Chest Pain or Discomfort Respiratory: No: Shortness of Breath Gastrointestinal: No: Abdominal Pain Genitourinary: No: Dysuria Musculoskeletal: Positive: Pain (left knee pain) Skin: No Rash Neurologic: No: Weakness Psychiatric: No: Depression Endocrine: No: Polydipsia Hematologic/Lymphatic: No: Easy Bruising Physical Exam Narrative GENERAL: AAO x 3, no acute distress, Well-nourished, well-developed patient. SKIN: Warm and dry. No visible rashes or bruising. HEAD: Normocephalic and atraumatic. EYES: No scleral icterus. No injection or drainage. ENT: No nasal drainage noted. Mucous membranes pink. Airway patent. NECK: Supple, trachea midline. No JVD. CARDIOVASCULAR: Regular rate and rhythm without murmurs, gallops, or rubs. RESPIRATORY: Breath sounds equal bilaterally. No accessory muscle use. No rhonchi or rales. GASTROINTESTINAL: Abdomen soft, non-tender, nondistended. EXTREMITIES: No cyanosis or edema. no visible edema, full rom in the Left knee. no crepitus, no laxity BACK: Nontender without obvious deformity. No CVA tenderness. PSYCH: AAO x 3, normal affect. Data Data Last Documented VS Vital Signs Date Time Temp Pulse Resp B/P Pulse Ox O2 Delivery O2 Flow Rate FiO2 07/11/16 15:36 98.6 87 18 123/78 99 Orders ^ Harley Bandage (07/11/16 15:54) MDM Medical Decision Making Medical Screen Exam Complete: Yes Emergency Medical Condition: Yes Medical Record Reviewed: Yes Differential Diagnosis left knee pain, OA, RA, less likely knee fracture Narrative Course 26-year-old male here with complaints of left knee pain for quite some time. Examination done and I do not see any evidence of acute bony injury. It is possible patient may have some underlying arthritis. I discussed these findings with him and recommend follow-up with his primary care provider. We will provide him with an Harley wrap. He can use ibuprofen and Tylenol as needed. Patient verbalized understanding of instructions, questions were answered, and thanked me for their care. I advised them if their condition worsens, please return to the nearest emergency room for further care. Diagnosis Primary Impression: Left knee pain Qualified Code: M25.562 - Chronic pain of left knee Patient Instructions: General Instructions Additional Instructions: You can try [id number] Tylenol or Motrin as needed for pain. Follow-up with primary care provider. Med/Other Pt SpecificInfo: No Change to Meds Disposition: 01 DISCHARGE HOME Condition: Stable Lakeisha Guerra July 11, 2016 15:49
== END 2016-07-11 16:38 | disposition home or self-care (01) ==
LOC: NEPK 15:34
DX: M25.562 Pain in left knee (principal); G89.29 Other chronic pain
CPT/HCPCS: 99282

== ENCOUNTER 2016-07-22 14:00 | Emergency (ER) | payer MEDICAID ==
[~2016-07-22] VITALS: Ht 188 cm; Wt 71.5 kg
[2016-07-22 14:04] VITALS: BP 188/72; PULSE 94; RESP 20; TEMP 97.8; O2SAT 97
--- NOTE | 2016-07-22 14:09 | PD ---
HPI . low blood sugar Chief Complaint: Medical Clearance Time Seen by Provider: 14:09 Travel History International Travel<30 days: No Contact w/Intl Traveler<30days: No Traveled to known affect area: No History of Present Illness HPI 26-year-old male with history of diabetes and HIV here with complaints of hypoglycemia at home. Patient tells me that he had a sausage this morning for breakfast and he felt he had low blood sugar, checked with his Accu-Chek and his sugar was noted to be 70. He decided to come to the emergency department for further evaluation. Accu-Chek was done here and was 80. He has no symptoms. He tells me he's been trying to get diabetes education through his primary care provider, but they have not been able to provide that for him. He has no other complaints. PFSH Past Medical History Asthma: Yes Autoimmune Disease: Yes (HIV) Blood Disorders: No Cancer: No Cardiovascular Problems: No COPD: No Diabetes: Yes Diminished Hearing: No Endocrine: Yes Gastrointestinal Disorders: Yes (GASTRITIS) Genitourinary: No Immune Disorder: Yes (HIV) Implanted Vascular Access Dvce: No Musculoskeletal: No Neurologic: No Psychiatric: No Reproductive: No Respiratory: Yes Sleep Apnea: No Thyroid Disease: No Past Surgical History Genitourinary Surgery: Yes (SCOPE) Pacemaker: No Other Surgery: Yes (ankle) Social History Alcohol Use: Yes (RARE) Tobacco Use: No Substance Use: No Allergies-Medications (Allergen,Severity, Reaction): Coded Allergies: Aspirin (Verified Allergy, Severe, SWELLING, 07/22/16) Reported Meds & Prescriptions Reported Meds & Active Scripts Active Humulin R Inj (Insulin Human Regular) 1,000 Unit/10 Ml Vial 1-9 Units SQ ACHS Max dose at bedtime( )units; sugars < 70(0)units; sugars 150-199,(1)unit; sugars 200-249(3)units; sugars 250-299,(5)units; sugars 300-349(7)units; sugars more than 349(9)units. Reported [Hiv ] Humulin R Inj (Insulin Human Regular) 1,000 Unit/10 Ml Vial 2-10 Units SQ TIDAC PRN IMPORTANT TO EAT A MEAL WITHIN 30-60 MINUTES OF DOSING Review of Systems General / Constitutional: No: Fever Eyes: No: Visual changes HENT: No: Headaches Cardiovascular: No: Chest Pain or Discomfort Respiratory: No: Shortness of Breath Gastrointestinal: No: Abdominal Pain Genitourinary: No: Dysuria Musculoskeletal: No: Pain Skin: No Rash Neurologic: No: Weakness Psychiatric: No: Depression Endocrine: No: Polydipsia Hematologic/Lymphatic: No: Easy Bruising Physical Exam Narrative GENERAL: AAO x 3, no acute distress, Well-nourished, well-developed patient. SKIN: Warm and dry. No visible rashes or bruising. HEAD: Normocephalic and atraumatic. EYES: No scleral icterus. No injection or drainage. ENT: No nasal drainage noted. Mucous membranes pink. Airway patent. NECK: Supple, trachea midline. No JVD. CARDIOVASCULAR: Regular rate and rhythm without murmurs, gallops, or rubs. RESPIRATORY: Breath sounds equal bilaterally. No accessory muscle use. No rhonchi or rales. GASTROINTESTINAL: Abdomen soft, non-tender, nondistended. EXTREMITIES: No cyanosis or edema. BACK: Nontender without obvious deformity. No CVA tenderness. PSYCH: AAO x 3, normal affect. Data Data Last Documented VS Vital Signs Date Time Temp Pulse Resp B/P Pulse Ox O2 Delivery O2 Flow Rate FiO2 07/22/16 14:04 97.8 94 20 188/72 97 Room Air Orders Electrocardiogram (07/22/16 ) Chest, Single Ap (07/22/16 14:34) MDM Medical Decision Making Medical Screen Exam Complete: Yes Emergency Medical Condition: Yes Medical Record Reviewed: Yes Differential Diagnosis DM, hypoglycemia, poor dietary habits, atypical chest pain, anxiety, malingering Narrative Course 26-year-old male here with complaints of hypoglycemia home. Here in the emergency department patient's blood sugar is 80. I provided him with some orange juice. We discussed hypoglycemia. He has been advised to f/u with his PCP. Bp recheck 114/64. 1438: patient about to get discharged and tells staff he is having chest pain. Discussed with Dr. Licona, recommends EKG and CXR, if normal dc. Patient had CP workup a few weeks ago and was normal. He denies any diaphoresis, nausea or vomiting. No radiation of pain elsewhere. Pain is reproducible with palpation to the sternum. CXR and EKG ok Discussed with Dr. Licona, patient cleared for Discharge. Patient verbalized understanding of instructions, questions were answered, and thanked me for their care. I advised them if their condition worsens, please return to the nearest emergency room for further care. Diagnosis Primary Impression: Diabetes Qualified Code: E10.9 - Type 1 diabetes mellitus without complication Additional Impressions: Hypoglycemia Atypical chest pain Patient Instructions: General Instructions Additional Instructions: Please try to attend a diabetes education course. Your primary care provider can help arrange this for you. Return to the emergency department for any worsening symptoms. Med/Other Pt SpecificInfo: No Change to Meds Disposition: 01 DISCHARGE HOME Condition: Stable Lakeisha Guerra July 22, 2016 14:09
--- NOTE | 2016-07-22 15:10 | RADRPT ---
EXAM DATE/TIME: 07/22/2016 14:39 [facility] COMPARISON: CHEST SINGLE AP, July 06, 2016, 12:27. INDICATIONS : Short of breath, pain in chest and entire body, low blood sugar MEDICAL HISTORY : Diabetes mellitus type I. SURGICAL HISTORY : None. ENCOUNTER: Initial ACUITY: 1 day PAIN SCORE: 10/10 LOCATION: Bilateral chest FINDINGS: A single view of the chest demonstrates the lungs to be symmetrically aerated without evidence of mas s, infiltrate or effusion. The cardiomediastinal contours are unremarkable. Osseous structures are intact. CONCLUSION: No acute disease. Ang Martell MD on July 22, 2016 at 15:08 Board Certified Radiologist. This report was verified electronically.
--- NOTE | 2016-07-23 08:24 | EKG ---
Date Performed: 07/22/2016 Time Performed: 14:48:25 PTAGE: 26 years EKG: Sinus rhythm NONSPECIFIC T-WAVE ABNORMALITY BORDERLINE ECG PREVIOUS TRACING : 07/06/2016 12.19 Compared to previous tracing, nonspecific ST abnormalities are now less evident. DOCTOR: Julio Mejia Interpretating Date/Time 07/23/2016 08:23:17
== END 2016-07-22 15:26 | disposition home or self-care (01) ==
LOC: NEPD 14:00
DX: E10.649 Type 1 diabetes mellitus with hypoglycemia without coma (principal); B20 Human immunodeficiency virus [HIV] disease; R07.89 Other chest pain; Z79.4 Long term (current) use of insulin
CPT/HCPCS: 71010; 93005

== ENCOUNTER 2016-07-27 05:31 | Emergency (ER) | payer MEDICAID ==
[2016-07-27 05:33] VITALS: BP 127/84; PULSE 88; RESP 16; TEMP 97.7; O2SAT 99
[2016-07-27] MEDS ORDERED: HIV MED PO (06:12)
[2016-07-27] MEDS ORDERED: MORPHINE SULFATE 4 MG/ML INJ IV PUSH ONE (06:15)
[2016-07-27] MEDS ORDERED: ALUMINUM/MAGNESIUM/SIMETH 30 ML CUP PO ONE (06:15)
[2016-07-27] MEDS ORDERED: ATROPINE/SCOPOLAM/HYOSCYAM/PB ELIXIR 10 ML CUP PO ONE (06:15)
[2016-07-27] MEDS ORDERED: ONDANSETRON HCL 4 MG/2 ML VIAL IVP ONE (06:15)
--- NOTE | 2016-07-27 06:27 | PD ---
HPI Chief Complaint: GI Complaint Time Seen by Provider: 06:06 Travel History International Travel<30 days: No Contact w/Intl Traveler<30days: No Traveled to known affect area: No History of Present Illness HPI 26-year-old male complains of epigastric abdominal pain, nausea vomiting. Patient states the symptoms started about 2 hours prior coming to the emergency room. Patient stated the pain burning pain sharp pain localized around epigastric area. Patient denies any pain radiation. Patient states that he noticed some blood in the vomitus. Patient denies any fever chills. Patient denies any dysuria or frequency. Patient has history HIV positive and diabetes. Patient states that he has been compliant with his medications. PFSH Past Medical History Asthma: Yes Autoimmune Disease: Yes (HIV) Blood Disorders: No Cancer: No Cardiovascular Problems: No COPD: No Diabetes: Yes Patient Takes Glucophage: No Diminished Hearing: No Endocrine: Yes Gastrointestinal Disorders: Yes (GASTRITIS) Genitourinary: No Immune Disorder: Yes (HIV) Implanted Vascular Access Dvce: No Musculoskeletal: No Neurologic: No Psychiatric: No Reproductive: No Respiratory: Yes Sleep Apnea: No Thyroid Disease: No Influenza Vaccination: Yes Past Surgical History Genitourinary Surgery: Yes (SCOPE) Pacemaker: No Other Surgery: Yes (ankle) Social History Alcohol Use: No Tobacco Use: No Substance Use: No Allergies-Medications (Allergen,Severity, Reaction): Coded Allergies: Aspirin (Verified Allergy, Severe, SWELLING, 07/27/16) Reported Meds & Prescriptions Reported Meds & Active Scripts Active Humulin R Inj (Insulin Human Regular) 1,000 Unit/10 Ml Vial 1-9 Units SQ ACHS Max dose at bedtime( )units; sugars < 70(0)units; sugars 150-199,(1)unit; sugars 200-249(3)units; sugars 250-299,(5)units; sugars 300-349(7)units; sugars more than 349(9)units. Reported [Hiv Med] PO DAILY Humulin R Inj (Insulin Human Regular) 1,000 Unit/10 Ml Vial 2-10 Units SQ TIDAC PRN IMPORTANT TO EAT A MEAL WITHIN 30-60 MINUTES OF DOSING Review of Systems General / Constitutional: No: Fever Eyes: No: Visual changes HENT: No: Headaches Cardiovascular: No: Chest Pain or Discomfort Respiratory: No: Shortness of Breath Gastrointestinal: Positive: Nausea, Vomiting, Abdominal Pain Genitourinary: No: Dysuria Musculoskeletal: No: Pain Skin: No Rash Neurologic: No: Weakness Psychiatric: No: Depression Endocrine: No: Polydipsia Hematologic/Lymphatic: No: Easy Bruising Physical Exam Narrative GENERAL: Well-nourished, well-developed patient. SKIN: Focused skin assessment warm/dry. HEAD: Normocephalic. EYES: No scleral icterus. No injection or drainage. NECK: Supple, trachea midline. No JVD or lymphadenopathy. CARDIOVASCULAR: Regular rate and rhythm without murmurs, gallops, or rubs. RESPIRATORY: Breath sounds equal bilaterally. No accessory muscle use. GASTROINTESTINAL: Abdomen soft, nondistended. Patient has moderate tenderness on palpation epigastric area. No rebound tenderness. No mass. MUSCULOSKELETAL: No cyanosis, or edema. BACK: Nontender without obvious deformity. No CVA tenderness. Neurologic exam: Normal. Data Data Last Documented VS Vital Signs Date Time Temp Pulse Resp B/P Pulse Ox O2 Delivery O2 Flow Rate FiO2 07/27/16 05:33 97.7 88 16 127/84 99 Room Air Orders Complete Blood Count With Diff (07/27/16 06:09) Comprehensive Metabolic Panel (07/27/16 06:09) Lipase (07/27/16 06:09) Prothrombin Time / Inr (Pt) (07/27/16 06:09) Act Partial Throm Time (Ptt) (07/27/16 06:09) Urinalysis - C+S If Indicated (07/27/16 06:09) Ct Abd/Pel W Iv Contrast(Rout) (07/27/16 06:09) Iv Access Insert/Monitor (07/27/16 06:09) Ecg Monitoring (07/27/16 06:09) Oximetry (07/27/16 06:09) Morphine Inj (Morphine Inj) (07/27/16 06:15) Ondansetron Inj (Zofran Inj) (07/27/16 06:15) Sodium Chlor 0.9% 1000 Ml Inj (Ns 1000 M (07/27/16 06:09) Al-Mag Hy-Si 40-40-4 Mg/Ml Liq (Mag-Al P (07/27/16 06:15) Ubquy-[id number]-Pb Liq ( Liq (07/27/16 06:15) MDM Medical Decision Making Medical Screen Exam Complete: Yes Emergency Medical Condition: Yes Differential Diagnosis Differential diagnosis including gastroenteritis, gastritis, PUD, pancreatitis, cholecystitis, colitis, UTI, pyelonephritis, nephrolithiasis. Narrative Course 26-year-old male complaining abdominal pain with nausea vomiting. History of diabetes. History of HIV positive. Normal saline solution 1 25 cc an hour. Morphine 2 mg IV. Zofran 4 mg IV. Maalox 30 cc by mouth 10 cc by mouth. Aron Licona MD Jul 27, 2016 06:27
[2016-07-27] MEDS: SODIUM CHLOR 0.9% 1000 ML INJ 1,000 ML IV SCH ×2 (06:43→10:32)
[2016-07-27 07:00] LABS: AUTOMATED NEUTROPHIL # 1.6 TH/MM3 (1.8-7.7); BASOPHIL % 0.6 % (0.0-2.0); EOSINOPHIL # 0.3 TH/MM3 (0-0.4); EOSINOPHIL % 10.3 % (0.0-4.0); HEMATOCRIT 36.4 % (39.0-51.0); HEMO FLAGS DIFF FINAL; LYMPHOCYTE # 0.6 TH/MM3 (1.0-4.8); MEAN CELL VOLUME 80.8 FL (80.0-100.0); MEAN CORPUSCULAR HEMOGLOBIN 27.2 PG (27.0-34.0); MEAN CORPUSCULAR HGB CONC 33.7 % (32.0-36.0); MONO % 11.1 % (0.0-8.0); PLATELET COUNT 178 TH/MM3 (150-450); RED CELL DISTRIBUTION WIDTH 12.9 % (11.6-17.2); WHITE BLOOD COUNT 2.8 TH/MM3 (4.0-11.0)
[2016-07-27 07:05] LABS: APTT (PATIENT) 27.5 SEC (24.3-30.1); INTERNATIONAL NORMALIZED RATIO 0.9 RATIO; PROTHROMBIN TIME - PATIENT 10.1 SEC (9.8-11.6)
[2016-07-27 07:08] LABS: ALT (GPT) 23 U/L (12-78); ANION GAP 6 MEQ/L (5-15); AST (GOT) 25 U/L (15-37); BICARBONATE 32.6 MEQ/L (21.0-32.0); BLOOD UREA NITROGEN 17 MG/DL (7-18); CHLORIDE 99 MEQ/L (98-107); GLOMERULAR FILTRATION RATE 120 ML/MIN (>89); POTASSIUM 4.1 MEQ/L (3.5-5.1); SODIUM (NA) 138 MEQ/L (136-145)
[2016-07-27 07:10] LABS: ALKALINE PHOSPHATASE 90 U/L (45-117); TOTAL BILIRUBIN ADULT 0.6 MG/DL (0.2-1.0)
[2016-07-27] MEDS ORDERED: IOHEXOL 350 MG/ML 10 ML VIAL (for RAD DIAG) IV ONE (08:13)
--- NOTE | 2016-07-27 09:13 | RADRPT ---
EXAM DATE/TIME: 07/27/2016 07:58 [facility] COMPARISON: No previous studies available for comparison. INDICATIONS : Epigastric pain and vomiting today. IV CONTRAST: 85 cc Omnipaque 350 (iohexol) IV ORAL CONTRAST: No oral contrast ingested. RADIATION DOSE: 9.96 CTDIvol (mGy) MEDICAL HISTORY : HIV. gastritis SURGICAL HISTORY : None. ENCOUNTER: Initial ACUITY: 1 day PAIN SCALE: 7/10 LOCATION: epigastric abdomen TECHNIQUE: Volumetric scanning of the abdomen and pelvis was performed. Using automated exposure control and ad justment of the mA and/or kV according to patient size, radiation dose was kept as low as reasonably achievable to obtain optimal diagnostic quality images. FINDINGS: LOWER LUNGS: The visualized lower lungs are clear. LIVER: Mild diffuse hypodensity of the liver indicating mild hepatic steatosis. Gallbladder is within normal limits. Mildly prominent common duct diffusely measuring 6-7 mm. No focal mass identified. SPLEEN: Normal size without lesion. PANCREAS: Diffusely mildly prominent pancreatic duct measuring 3-4 mm in diameter. Pancreas is homogeneous and otherwise within normal limits. KIDNEYS: Normal in size and shape. There is no mass, stone or hydronephrosis. ADRENAL GLANDS: Within normal limits. VASCULAR: There is no aortic aneurysm. BOWEL/MESENTERY: No evidence of bowel dilatation. No free air or free fluid. Appendix not identified. ABDOMINAL WALL: Within normal limits. RETROPERITONEUM: There is no lymphadenopathy. BLADDER: No wall thickening or mass. REPRODUCTIVE: Within normal limits. INGUINAL: There is no lymphadenopathy or hernia. MUSCULOSKELETAL: Within normal limits for patient age. CONCLUSION: 1. Mild hepatic steatosis. 2. Mild diffuse prominence of the common duct and pancreatic duct for age. 3. Abdomen and pelvis CT otherwise within normal limits. Yonis Justin MD on July 27, 2016 at 9:06 Board Certified Radiologist. This report was verified electronically.
[2016-07-27] MEDS ORDERED: FAMOTIDINE 20 MG/2 ML VIAL IV PUSH ONE (10:30)
[2016-07-27] MEDS ORDERED: ZOFR4TAB3 SL (10:30)
[2016-07-27] MEDS ORDERED: FAMO1TAB37 PO (10:30)
[2016-07-27] MEDS ORDERED: SODIUM CHLOR 0.9% 1000 ML INJ 1,000 ML IV ONE (10:30)
--- NOTE | 2016-07-27 10:31 | PD ---
Physical Exam Date Seen by Provider: Jul 27, 2016 Data Data Last Documented VS Vital Signs Date Time Temp Pulse Resp B/P Pulse Ox O2 Delivery O2 Flow Rate FiO2 07/27/16 05:33 97.7 88 16 127/84 99 Room Air Orders Complete Blood Count With Diff (07/27/16 06:09) Comprehensive Metabolic Panel (07/27/16 06:09) Lipase (07/27/16 06:09) Prothrombin Time / Inr (Pt) (07/27/16 06:09) Act Partial Throm Time (Ptt) (07/27/16 06:09) Urinalysis - C+S If Indicated (07/27/16 06:09) Ct Abd/Pel W Iv Contrast(Rout) (07/27/16 06:09) Iv Access Insert/Monitor (07/27/16 06:09) Ecg Monitoring (07/27/16 06:09) Oximetry (07/27/16 06:09) Morphine Inj (Morphine Inj) (07/27/16 06:15) Ondansetron Inj (Zofran Inj) (07/27/16 06:15) Sodium Chlor 0.9% 1000 Ml Inj (Ns 1000 M (07/27/16 06:09) Al-Mag Hy-Si 40-40-4 Mg/Ml Liq (Mag-Al P (07/27/16 06:15) Zalnq-Zwxuhl-Aguivo-Pb Liq ( Liq (07/27/16 06:15) Beta Hydroxybutyrate (Acetone) (07/27/16 06:40) Iohexol 350 Inj (Omnipaque 350 Inj) (07/27/16 08:13) Sodium Chlor 0.9% 1000 Ml Inj (Ns 1000 M (07/27/16 10:30) Famotidine Inj (Pepcid Inj) (07/27/16 10:30) Labs Laboratory Tests Test 07/27/16 07/27/16 06:40 10:20 White Blood Count 2.8 TH/MM3 Red Blood Count 4.50 MIL/MM3 Hemoglobin 12.2 GM/DL Hematocrit 36.4 % Mean Corpuscular Volume 80.8 FL Mean Corpuscular Hemoglobin 27.2 PG Mean Corpuscular Hemoglobin 33.7 % Concent Red Cell Distribution Width 12.9 % Platelet Count 178 TH/MM3 Mean Platelet Volume 9.5 FL Neutrophils (%) (Auto) 57.0 % Lymphocytes (%) (Auto) 21.0 % Monocytes (%) (Auto) 11.1 % Eosinophils (%) (Auto) 10.3 % Basophils (%) (Auto) 0.6 % Neutrophils # (Auto) 1.6 TH/MM3 Lymphocytes # (Auto) 0.6 TH/MM3 Monocytes # (Auto) 0.3 TH/MM3 Eosinophils # (Auto) 0.3 TH/MM3 Basophils # (Auto) 0.0 TH/MM3 CBC Comment DIFF FINAL Differential Comment Prothrombin Time 10.1 SEC Prothromb Time International 0.9 RATIO Ratio Activated Partial 27.5 SEC Thromboplast Time Sodium Level 138 MEQ/L Potassium Level 4.1 MEQ/L Chloride Level 99 MEQ/L Carbon Dioxide Level 32.6 MEQ/L Anion Gap 6 MEQ/L Blood Urea Nitrogen 17 MG/DL Creatinine 0.91 MG/DL Estimat Glomerular Filtration 120 ML/MIN Rate Random Glucose 199 MG/DL Calcium Level 9.0 MG/DL Total Bilirubin 0.6 MG/DL Aspartate Amino Transf 25 U/L (AST/SGOT) Alanine Aminotransferase 23 U/L (ALT/SGPT) Alkaline Phosphatase 90 U/L Total Protein 9.3 GM/DL Albumin 3.6 GM/DL Lipase 188 U/L B-Hydroxybutyrate 0.40 MMOL/L Urine Color YELLOW Urine Turbidity CLEAR Urine pH 5.5 Urine Specific [place] 1.049 Urine Protein TRACE mg/dL Urine Glucose (UA) 1000 mg/dL Urine Ketones NEG mg/dL Urine Occult Blood NEG Urine Nitrite NEG Urine Bilirubin NEG Urine Urobilinogen LESS THAN 2.0 MG/DL Urine Leukocyte Esterase SMALL Urine RBC 2 /hpf Urine WBC 3 /hpf Urine Squamous Epithelial <1 /hpf Cells Urine Mucus FEW /lpf Microscopic Urinalysis Comment CULT NOT INDICATED MDM Medical Record Reviewed: Yes Supervised Visit with GEMMA: No Narrative Course Patient is a 26-year-old male who presents to emergency room with complaints of epigastric pain with nausea and vomiting. His symptoms began 2 hours prior to coming to the emergency room. Patient was initially seen by Dr. Licona upon and then signed out to me at change of shift. Laboratory Tests Test 07/27/16 06:40 White Blood Count 2.8 TH/MM3 (4.0-11.0) Red Blood Count 4.50 MIL/MM3 (4.50-5.90) Hemoglobin 12.2 GM/DL (13.0-17.0) Hematocrit 36.4 % (39.0-51.0) Mean Corpuscular Volume 80.8 FL (80.0-100.0) Mean Corpuscular Hemoglobin 27.2 PG (27.0-34.0) Mean Corpuscular Hemoglobin 33.7 % Concent (32.0-36.0) Red Cell Distribution Width 12.9 % (11.6-17.2) Platelet Count 178 TH/MM3 (150-450) Mean Platelet Volume 9.5 FL (7.0-11.0) Neutrophils (%) (Auto) 57.0 % (16.0-70.0) Lymphocytes (%) (Auto) 21.0 % (9.0-44.0) Monocytes (%) (Auto) 11.1 % (0.0-8.0) Eosinophils (%) (Auto) 10.3 % (0.0-4.0) Basophils (%) (Auto) 0.6 % (0.0-2.0) Neutrophils # (Auto) 1.6 TH/MM3 (1.8-7.7) Lymphocytes # (Auto) 0.6 TH/MM3 (1.0-4.8) Monocytes # (Auto) 0.3 TH/MM3 (0-0.9) Eosinophils # (Auto) 0.3 TH/MM3 (0-0.4) Basophils # (Auto) 0.0 TH/MM3 (0-0.2) CBC Comment DIFF FINAL Differential Comment Prothrombin Time 10.1 SEC (9.8-11.6) Prothromb Time International 0.9 RATIO Ratio Activated Partial 27.5 SEC Thromboplast Time (24.3-30.1) Sodium Level 138 MEQ/L (136-145) Potassium Level 4.1 MEQ/L (3.5-5.1) Chloride Level 99 MEQ/L (98-107) Carbon Dioxide Level 32.6 MEQ/L (21.0-32.0) Anion Gap 6 MEQ/L (5-15) Blood Urea Nitrogen 17 MG/DL (7-18) Creatinine 0.91 MG/DL (0.60-1.30) Estimat Glomerular Filtration 120 ML/MIN Rate (>89) Random Glucose 199 MG/DL (74-106) Calcium Level 9.0 MG/DL (8.5-10.1) Total Bilirubin 0.6 MG/DL (0.2-1.0) Aspartate Amino Transf 25 U/L (15-37) (AST/SGOT) Alanine Aminotransferase 23 U/L (12-78) (ALT/SGPT) Alkaline Phosphatase 90 U/L (45-117) Total Protein 9.3 GM/DL (6.4-8.2) Albumin 3.6 GM/DL (3.4-5.0) Lipase 188 U/L (73-393) B-Hydroxybutyrate 0.40 MMOL/L (0.00-0.39) Last Impressions Abdomen/Pelvis CT 07/27/16 0609 Signed Impressions: Service Date/Time: Friday, July 27, 2016 07:58 - CONCLUSION: 1. Mild hepatic steatosis. 2. Mild diffuse prominence of the common duct and pancreatic duct for age. 3. Abdomen and pelvis CT otherwise within normal limits. Yonis Justin MD Patient with most likely gastroenteritis. Patient reports that he is feeling better after IV fluids and antiemetics. Patient with most likely gastroenteritis with his epigastric pain with nausea and vomiting. Plan to discharge patient to home with follow-up with primary care doctor. Signs and symptoms of when to return to the emergency room was reviewed patient in detail. Diagnosis Primary Impression: Gastroenteritis Additional Impressions: Nausea & vomiting Qualified Code: R11.2 - Nausea and vomiting, intractability of vomiting not specified, unspecified vomiting type Abdominal pain Qualified Code: R10.13 - Epigastric pain Glucosuria Patient Instructions: General Instructions Additional Instruction: Please provide patient with a copy of his lab work and studies at discharge Please follow-up with your primary care doctor and 2-3 days Return to emergency room if symptoms worsen or progress or return Return to emergency room as needed Med/Other Pt SpecificInfo: Prescription(s) given Scripts Famotidine (Pepcid)20 Mg Tab20 Mg PO BID #60 TAB Ref 0 Prov:Nica Vargas DO 07/27/16 Ondansetron Odt (Zofran Odt)4 Mg Tab4 Mg SL Q6HR PRN (Nausea/Vomiting) #30 TAB Ref 0 Prov:Nica Vargas DO 07/27/16 Disposition: 01 DISCHARGE HOME Condition: Stable Nica Vargas DO Jul 27, 2016 10:31
[2016-07-27 10:41] LABS: BLOOD, URINE NEG (NEG); COMMENT (UR) CULT NOT INDICATED; CULTURE IF INDICATED CULT NOT INDICATED; GLUCOSE,URINE 1000 mg/dL (NEG); KETONE, URINE NEG (NEG); MUCUS URINE FEW /lpf (OCC); NITRITE,URINE NEG (NEG); PH, URINE 5.5 (5.0-8.5); SQUAMOUS EPITHELIAL CELL URINE <1 /hpf (0-5); URINE COLOR YELLOW (YELLW/STRAW)
[2016-07-27 11:12] VITALS: BP 124/78
== END 2016-07-27 11:19 | disposition home or self-care (01) ==
LOC: NEPE 05:31
DX: K52.9 Noninfective gastroenteritis and colitis, unspecified (principal); R11.2 Nausea with vomiting, unspecified; R10.13 Epigastric pain; R81 Glycosuria
CPT/HCPCS: 74177; 80053; 81001; 82010; 83690; 85025; 85610; 85730; 96361; 96374; 96375; 99285; J2270; J2405; J7030; Q9967

== ENCOUNTER 2016-08-14 18:34 | Emergency (ER) | payer MEDICAID ==
[~2016-08-14 18:34] MED LIST changes: +FAMO1TAB37 PO; -HIV; +HIV MED PO; +ZOFR4TAB3 SL
[2016-08-14 18:35] VITALS: BP 137/77; PULSE 97; RESP 14; TEMP 98.6; O2SAT 98
--- NOTE | 2016-08-14 19:03 | PD ---
HPI Chief Complaint: Chest Pain Time Seen by Provider: 18:55 Travel History International Travel<30 days: No Contact w/Intl Traveler<30days: No Traveled to known affect area: No History of Present Illness HPI 26-year-old male came to the emergency room with history of chest pain mostly right-sided. Patient says it started 3 hours ago. Pain is pleuritic in nature. Vital signs were stable. No history of fever or chills. No history of cough. No history of fever or chills. No history of hemoptysis. Patient says he had something similar a few months ago and had gone to the [facility] where they didn't find anything and he was discharge. Patient does not appear to be in any obvious distress currently. [facility] Past Medical History Narrative Medical History of his past medical, surgical, social and family history was reviewed from the nursing note. Asthma: Yes Autoimmune Disease: Yes (HIV) Blood Disorders: No Cancer: No Cardiovascular Problems: No COPD: No Diabetes: Yes Diminished Hearing: No Endocrine: Yes Gastrointestinal Disorders: Yes (GASTRITIS) Genitourinary: No Immune Disorder: Yes (HIV) Implanted Vascular Access Dvce: No Musculoskeletal: No Neurologic: No Psychiatric: No Reproductive: No Respiratory: Yes Sleep Apnea: No Thyroid Disease: No Past Surgical History Genitourinary Surgery: Yes (SCOPE) Pacemaker: No Other Surgery: Yes (ankle) Social History Alcohol Use: No Tobacco Use: No Substance Use: No Allergies-Medications (Allergen,Severity, Reaction): Coded Allergies: Aspirin (Verified Allergy, Severe, SWELLING, 08/18/16) Comments List of his allergies reviewed from the nursing note. Reported Meds & Prescriptions Reported Meds & Active Scripts Active Zofran Odt (Ondansetron Odt) 4 Mg Tab 4 Mg SL Q6HR PRN Humulin R Inj (Insulin Human Regular) 1,000 Unit/10 Ml Vial 1-9 Units SQ ACHS Max dose at bedtime( )units; sugars < 70(0)units; sugars 150-199,(1)unit; sugars 200-249(3)units; sugars 250-299,(5)units; sugars 300-349(7)units; sugars more than 349(9)units. Reported Metformin ER (Metformin HCl) 500 Mg Jese 500 Mg PO DAILY With evening meal [Hiv Med] PO DAILY Humulin R Inj (Insulin Human Regular) 1,000 Unit/10 Ml Vial 2-10 Units SQ TIDAC PRN IMPORTANT TO EAT A MEAL WITHIN 30-60 MINUTES OF DOSING Narrative Medication List of his home medications reviewed from the nursing note. Review of Systems Except as stated in HPI: all other systems reviewed are Neg Physical Exam Narrative GENERAL: Awake, alert, no obvious distress SKIN: Focused skin assessment warm/dry. HEAD: Atraumatic. Normocephalic. EYES: Pupils equal and round. No scleral icterus. No injection or drainage. ENT: No nasal bleeding or discharge. Mucous membranes pink and moist. NECK: Trachea midline. No JVD. CARDIOVASCULAR: Regular rate and rhythm. No murmur appreciated. RESPIRATORY: No accessory muscle use. Clear to auscultation. Breath sounds equal bilaterally. GASTROINTESTINAL: Abdomen soft, non-tender, nondistended. Hepatic and splenic margins not palpable. MUSCULOSKELETAL: No obvious deformities. No clubbing. No cyanosis. No edema. NEUROLOGICAL: Awake and alert. No obvious cranial nerve deficits. Motor grossly within normal limits. Normal speech. PSYCHIATRIC: Appropriate mood and affect; insight and judgment normal. Data Data Last Documented VS Orders Electrocardiogram (08/14/16 19:09) Basic Metabolic Panel (Bmp) (08/14/16 19:09) Ckmb (Isoenzyme) Profile (08/14/16 19:09) Complete Blood Count With Diff (08/14/16 19:09) D-Dimer (08/14/16 19:09) Magnesium (Mg) (08/14/16 19:09) Prothrombin Time / Inr (Pt) (08/14/16 19:09) Act Partial Throm Time (Ptt) (08/14/16 19:09) Troponin I (08/14/16 19:09) Chest, Single Ap (08/14/16 19:09) Ecg Monitoring (08/14/16 19:09) Bilateral Bp Monitoring (08/14/16 19:09) Iv Access Insert/Monitor (08/14/16 19:09) Oximetry (08/14/16 19:09) Oxygen Administration (08/14/16 19:09) Sodium Chloride 0.9% Flush (Ns Flush) (08/14/16 19:15) Ketorolac Inj (Toradol Inj) (08/14/16 19:15) CKMB (08/14/16 19:15) CKMB% (08/14/16 19:15) Labs [facility] Medical Decision Making Medical Screen Exam Complete: Yes Emergency Medical Condition: Yes Medical Record Reviewed: Yes Interpretation(s) Twelve-lead EKG was reviewed by me. Normal sinus rhythm, normal axis, nonspecific ST-T wave changes. Heart rate of 65 bpm. Differential Diagnosis PE, pneumonia, spontaneous pneumothorax Narrative Course 8:35 PM CBC shows leukopenia, monocytosis and eosinophilia. Patient has been in the emergency room multiple times in the past and upon looking back his blood test always has some degree of leukopenia and monocytosis and eosinophilia. Upon looking into his past history patient has HIV and is on antiretroviral medications. Patient didn't not tell me this when I asked him about his past medical history. He just mentioned that he had diabetes. Chemistry is pending. Chest x-rays within normal limit. In fact I just looked at his labs again and chemistry and d-dimer is back. His blood sugar is 250 but no anion gap. Patient told me that he had taken his insulin in the morning but not in the evening. He hasn't eaten anything. I'll discharge him home and he can go home and take his insulin. Procedures EKG Prior to Arrival: No Diagnosis Primary Impression: Atypical chest pain Additional Impression: Hyperglycemia Referrals: Primary Care Physician Additional Instructions: Go home and eat something and then take your night dose of insulin. Follow-up with your primary care. Return to the ER if the condition worsens or any other new concerns. Med/Other Pt SpecificInfo: No Change to Meds Disposition: 01 DISCHARGE HOME Condition: Stable Arnold Cloud MD Aug 14, 2016 19:03 Basophils (%) (Auto) 1.2 % Neutrophils # (Auto) 1.1 TH/MM3 Lymphocytes # (Auto) 0.6 TH/MM3 Monocytes # (Auto) 0.4 TH/MM3 Eosinophils # (Auto) 0.3 TH/MM3 Basophils # (Auto) 0.0 TH/MM3 CBC Comment DIFF FINAL Differential Comment [facility] Medical Decision Making Medical Screen Exam Complete: Yes Emergency Medical Condition: Yes Medical Record Reviewed: Yes Interpretation(s) Twelve-lead EKG was reviewed by me. Normal sinus rhythm, normal axis, nonspecific ST-T wave changes. Heart rate of 65 bpm. Differential Diagnosis PE, pneumonia, spontaneous pneumothorax Narrative Course 8:35 PM CBC shows leukopenia, monocytosis and eosinophilia. Patient has been in the emergency room multiple times in the past and upon looking back his blood test always has some degree of leukopenia and monocytosis and eosinophilia. Upon looking into his past history patient has HIV and is on antiretroviral medications. Patient didn't not tell me the when I asked him about his past medical history. He just mentioned that he had diabetes. Chemistry is pending. Chest x-rays within normal limit. In fact I just looked at his labs again and chemistry and d-dimer is back. His blood sugar is 250 but no anion gap. Patient told me that he had taken his insulin in the morning but not in the evening. He hasn't eaten anything. I'll discharge him home and he can go home and take his insulin. Procedures EKG Prior to Arrival: No Diagnosis Primary Impression: Atypical chest pain Additional Impression: Hyperglycemia Referrals: Primary Care Physician Additional Instructions: Go home and eat something and then take your night dose of insulin. Follow-up with your primary care. Return to the ER if the condition worsens or any other new concerns. Med/Other Pt SpecificInfo: No Change to Meds Disposition: 01 DISCHARGE HOME Condition: Stable Arnold Cloud MD Aug 14, 2016 19:03
[2016-08-14 19:14] VITALS: BP 123/74; PULSE 75; RESP 12; O2SAT 97
[2016-08-14] MEDS ORDERED: KETOROLAC TROMETHAMINE 30 MG/ML (IVP) VIAL IV PUSH ONE (19:15)
[2016-08-14] MEDS ORDERED: SODIUM CHLORIDE 0.9% FLUSH 10 ML FLUSH IVF PRN (19:15)
[2016-08-14] MEDS ORDERED: METF500T4 PO (19:18)
[2016-08-14 19:46] LABS: AUTOMATED NEUTROPHIL # 1.1 TH/MM3 (1.8-7.7); BASOPHIL % 1.2 % (0.0-2.0); EOSINOPHIL # 0.3 TH/MM3 (0-0.4); HEMATOCRIT 34.9 % (39.0-51.0); HEMO FLAGS DIFF FINAL; LYMPH % 22.8 % (9.0-44.0); LYMPHOCYTE # 0.6 TH/MM3 (1.0-4.8); MEAN CELL VOLUME 81.2 FL (80.0-100.0); MEAN CORPUSCULAR HEMOGLOBIN 26.8 PG (27.0-34.0); MEAN CORPUSCULAR HGB CONC 33.1 % (32.0-36.0); MONO % 16.1 % (0.0-8.0); NEUT % 45.9 % (16.0-70.0); PLATELET COUNT 263 TH/MM3 (150-450); RED BLOOD COUNT 4.31 MIL/MM3 (4.50-5.90); WHITE BLOOD COUNT 2.5 TH/MM3 (4.0-11.0)
--- NOTE | 2016-08-14 19:53 | RADRPT ---
EXAM DATE/TIME: 08/14/2016 19:28 [facility] COMPARISON: CHEST SINGLE AP, July 22, 2016, 14:39. INDICATIONS : Chest pain. MEDICAL HISTORY : HIV. Gastritis. SURGICAL HISTORY : None. ENCOUNTER: Initial ACUITY: 2 days PAIN SCORE: 5/10 LOCATION: chest FINDINGS: Portable AP view of the chest demonstrates a normal-sized cardiac silhouette. No effusion, consolidat ion, or pneumothorax is visualized. The bones and soft tissues demonstrate no acute abnormality. CONCLUSION: No acute cardiopulmonary abnormality is identified. Dank Hernandez MD on August 14, 2016 at 19:50 Board Certified Radiologist. This report was verified electronically.
[2016-08-14 20:10] LABS: APTT (PATIENT) 27.8 SEC (24.3-30.1); PROTHROMBIN TIME - PATIENT 10.5 SEC (9.8-11.6)
[2016-08-14 20:25] LABS: ANION GAP 4 MEQ/L (5-15); BICARBONATE 32.4 MEQ/L (21.0-32.0); BLOOD UREA NITROGEN 13 MG/DL (7-18); CHLORIDE 103 MEQ/L (98-107); CREATINE KINASE 222 U/L (39-308); GLOMERULAR FILTRATION RATE 110 ML/MIN (>89); SODIUM (NA) 139 MEQ/L (136-145)
[2016-08-14 20:39] LABS: CKMB 1.6 NG/ML (0.5-3.6)
--- NOTE | 2016-08-15 13:54 | EKG ---
Date Performed: 08/14/2016 Time Performed: 19:24:05 PTAGE: 26 years EKG: Sinus rhythm NONSPECIFIC ST & T-WAVE ABNORMALITY BORDERLINE ECG Compared to prior tracing no significant change PREVIOUS TRACING : 07/22/2016 14.48 DOCTOR: Josephine Kirby Interpretating Date/Time 08/15/2016 13:48:03
== END 2016-08-14 21:15 | disposition home or self-care (01) ==
LOC: NEPD 18:34
DX: R07.89 Other chest pain (principal); E11.65 Type 2 diabetes mellitus with hyperglycemia; D72.819 Decreased white blood cell count, unspecified; D72.821 Monocytosis (symptomatic); D72.1 Eosinophilia; J45.909 Unspecified asthma, uncomplicated; K29.70 Gastritis, unspecified, without bleeding; Z21 Asymptomatic human immunodeficiency virus [HIV] infection status; Z79.4 Long term (current) use of insulin
CPT/HCPCS: 71010; 80048; 82550; 82552; 83735; 84484; 85025; 85379; 85610; 85730; 93005; 96374; 99285; J1885

== ENCOUNTER 2016-08-18 22:52 | Emergency (ER) | payer MEDICAID ==
[~2016-08-18] VITALS: Ht 188 cm; Wt 70.0 kg
[~2016-08-18 22:52] MED LIST changes: +METF500T4 PO
[2016-08-18 22:55] VITALS: BP 133/73; PULSE 85; RESP 16; TEMP 97.7; O2SAT 99
--- NOTE | 2016-08-19 00:56 | PD ---
HPI Chief Complaint: General Weakness Time Seen by Provider: 00:46 Travel History International Travel<30 days: No Contact w/Intl Traveler<30days: No Traveled to known affect area: No History of Present Illness HPI The patient is a 26-year-old male who presents emergency department for generalized weakness, nausea, and vomiting. The patient has a history of insulin-dependent diabetes and HIV, is currently on antivirals and followed by his specialist, Dr. Jimenez, who is located in [place], [place]. The patient actually has an appointment on Friday at approximately 2:30 PM. He states earlier tonight approximate 7 PM he developed some generalized weakness with an episode of nausea and vomiting. He denies any acute abdominal pain or diarrhea. He denies any history of AIDS defining illnesses. He denies any associated fever, chills, or sweats. Symptoms are moderate, no known alleviating or exacerbating factors. He denies any associated dysuria, frequency, or urgency. PFSH Past Medical History Asthma: Yes Autoimmune Disease: Yes (HIV) Blood Disorders: No Cancer: No Cardiovascular Problems: No COPD: No Diabetes: Yes Diminished Hearing: No Endocrine: Yes Gastrointestinal Disorders: Yes (GASTRITIS) Genitourinary: No Immune Disorder: Yes (HIV) Implanted Vascular Access Dvce: No Musculoskeletal: No Neurologic: No Psychiatric: No Reproductive: No Respiratory: Yes Sleep Apnea: No Thyroid Disease: No Past Surgical History Genitourinary Surgery: Yes (SCOPE) Pacemaker: No Other Surgery: Yes (ankle) Social History Alcohol Use: No Tobacco Use: No Substance Use: No Allergies-Medications (Allergen,Severity, Reaction): Coded Allergies: Aspirin (Verified Allergy, Severe, SWELLING, 08/18/16) Reported Meds & Prescriptions Reported Meds & Active Scripts Active Humulin R Inj (Insulin Human Regular) 1,000 Unit/10 Ml Vial 1-9 Units SQ ACHS Max dose at bedtime( )units; sugars < 70(0)units; sugars 150-199,(1)unit; sugars 200-249(3)units; sugars 250-299,(5)units; sugars 300-349(7)units; sugars more than 349(9)units. Reported Metformin ER (Metformin HCl) 500 Mg Jese 500 Mg PO DAILY With evening meal [Hiv Med] PO DAILY Humulin R Inj (Insulin Human Regular) 1,000 Unit/10 Ml Vial 2-10 Units SQ TIDAC PRN IMPORTANT TO EAT A MEAL WITHIN 30-60 MINUTES OF DOSING Review of Systems Except as stated in HPI: all other systems reviewed are Neg General / Constitutional: No: Fever Cardiovascular: No: Chest Pain or Discomfort Respiratory: No: Shortness of Breath Gastrointestinal: Positive: Nausea, Vomiting, No: Diarrhea, Abdominal Pain Genitourinary: No: Dysuria Musculoskeletal: Positive: Weakness Skin: No Rash Neurologic: Positive: Weakness Physical Exam Narrative GENERAL: Awake, alert, pleasant 26-year-old male who appears his stated age and is in no acute respiratory distress. SKIN: Focused skin assessment warm/dry. HEAD: Atraumatic. Normocephalic. EYES: Pupils equal and round. No scleral icterus. No injection or drainage. ENT: No nasal bleeding or discharge. Mucous membranes pink and moist. NECK: Trachea midline. No JVD. CARDIOVASCULAR: Regular rate and rhythm. No murmur appreciated. RESPIRATORY: No accessory muscle use. Clear to auscultation. Breath sounds equal bilaterally. GASTROINTESTINAL: Abdomen soft, non-tender, nondistended. No rebound tenderness. MUSCULOSKELETAL: No obvious deformities. No clubbing. No cyanosis. No edema. NEUROLOGICAL: Awake and alert. No obvious cranial nerve deficits. Motor grossly within normal limits. Normal speech. PSYCHIATRIC: Appropriate mood and affect; insight and judgment normal. Data Data Last Documented VS Vital Signs Date Time Temp Pulse Resp B/P Pulse Ox O2 Delivery O2 Flow Rate FiO2 08/19/16 00:52 61 16 100 Room Air 08/18/16 22:55 97.7 133/73 Orders Complete Blood Count With Diff (08/19/16 00:46) Comprehensive Metabolic Panel (08/19/16 00:46) Lipase (08/19/16 00:46) Ondansetron Inj (Zofran Inj) (08/19/16 01:00) Sodium Chlor 0.9% 1000 Ml Inj (Ns 1000 M (08/19/16 01:00) Labs Laboratory Tests Test 08/19/16 01:10 White Blood Count 3.6 TH/MM3 Red Blood Count 4.84 MIL/MM3 Hemoglobin 13.4 GM/DL Hematocrit 39.1 % Mean Corpuscular Volume 80.7 FL Mean Corpuscular Hemoglobin 27.6 PG Mean Corpuscular Hemoglobin 34.2 % Concent Red Cell Distribution Width 13.1 % Platelet Count 242 TH/MM3 Mean Platelet Volume 8.3 FL Neutrophils (%) (Auto) 66.7 % Lymphocytes (%) (Auto) 14.2 % Monocytes (%) (Auto) 10.8 % Eosinophils (%) (Auto) 7.6 % Basophils (%) (Auto) 0.7 % Neutrophils # (Auto) 2.4 TH/MM3 Lymphocytes # (Auto) 0.5 TH/MM3 Monocytes # (Auto) 0.4 TH/MM3 Eosinophils # (Auto) 0.3 TH/MM3 Basophils # (Auto) 0.0 TH/MM3 CBC Comment DIFF FINAL Differential Comment Sodium Level 138 MEQ/L Potassium Level 4.0 MEQ/L Chloride Level 100 MEQ/L Carbon Dioxide Level 33.3 MEQ/L Anion Gap 5 MEQ/L Blood Urea Nitrogen 19 MG/DL Creatinine 0.91 MG/DL Estimat Glomerular Filtration 120 ML/MIN Rate Random Glucose 55 MG/DL Calcium Level 9.2 MG/DL Total Bilirubin 0.4 MG/DL Aspartate Amino Transf 19 U/L (AST/SGOT) Alanine Aminotransferase 22 U/L (ALT/SGPT) Alkaline Phosphatase 88 U/L Total Protein 10.0 GM/DL Albumin 3.8 GM/DL Lipase 217 U/L [facility] Medical Decision Making Medical Screen Exam Complete: Yes Emergency Medical Condition: Yes Medical Record Reviewed: Yes Interpretation(s) Laboratory Tests Test 08/19/16 01:10 White Blood Count 3.6 TH/MM3 Red Blood Count 4.84 MIL/MM3 Hemoglobin 13.4 GM/DL Hematocrit 39.1 % Mean Corpuscular Volume 80.7 FL Mean Corpuscular Hemoglobin 27.6 PG Mean Corpuscular Hemoglobin 34.2 % Concent Red Cell Distribution Width 13.1 % Platelet Count 242 TH/MM3 Mean Platelet Volume 8.3 FL Neutrophils (%) (Auto) 66.7 % Lymphocytes (%) (Auto) 14.2 % Monocytes (%) (Auto) 10.8 % Eosinophils (%) (Auto) 7.6 % Basophils (%) (Auto) 0.7 % Neutrophils # (Auto) 2.4 TH/MM3 Lymphocytes # (Auto) 0.5 TH/MM3 Monocytes # (Auto) 0.4 TH/MM3 Eosinophils # (Auto) 0.3 TH/MM3 Basophils # (Auto) 0.0 TH/MM3 CBC Comment DIFF FINAL Differential Comment Sodium Level 138 MEQ/L Potassium Level 4.0 MEQ/L Chloride Level 100 MEQ/L Carbon Dioxide Level 33.3 MEQ/L Anion Gap 5 MEQ/L Blood Urea Nitrogen 19 MG/DL Creatinine 0.91 MG/DL Estimat Glomerular Filtration 120 ML/MIN Rate Random Glucose 55 MG/DL Calcium Level 9.2 MG/DL Total Bilirubin 0.4 MG/DL Aspartate Amino Transf 19 U/L (AST/SGOT) Alanine Aminotransferase 22 U/L (ALT/SGPT) Alkaline Phosphatase 88 U/L Total Protein 10.0 GM/DL Albumin 3.8 GM/DL Lipase 217 U/L Differential Diagnosis Differential diagnosis includes hyponatremia, gastritis, dehydration, electrolyte abnormality, hypokalemia, medication side effect, hyperglycemia, hypoglycemia, viral syndrome. Narrative Course IV was established, labs are drawn and sent, and the patient was placed on cardiac telemetry monitoring and continuous pulse oximetry monitoring. The patient was administered Zofran and IV fluids. Patient's labs are unremarkable. The patient was reevaluated at 2:10 AM, his nausea had resolved. His symptoms have resolved. He stable for outpatient follow-up. I will provide the patient a copy of his labs at discharge, he has an appointment today at 2:15 to see his infectious disease physician. Diagnosis Primary Impression: Gastritis Qualified Code: K29.00 - Acute gastritis, presence of bleeding unspecified, unspecified gastritis type Patient Instructions: General Instructions Additional Instructions: Please provide a patient a copy of his labs at discharge. Zofran as needed. Clear liquid diet and advance as tolerated. Follow-up with your physician today at 2:15 PM as scheduled. Med/Other Pt SpecificInfo: Prescription(s) given Scripts Ondansetron Odt (Zofran Odt)4 Mg Tab4 Mg SL Q6HR PRN (Nausea/Vomiting) #10 TAB Ref 0 Prov:Gareth Mckeon MD 08/19/16 Disposition: DISCHARGE HOME Condition: Stable Gareth Mckeon MD Aug 19, 2016 00:56
[2016-08-19] MEDS ORDERED: SODIUM CHLOR 0.9% 1000 ML INJ 1,000 ML IV ONE (01:00)
[2016-08-19] MEDS ORDERED: ONDANSETRON HCL 4 MG/2 ML VIAL IV PUSH ONE (01:00)
[2016-08-19 01:24] LABS: AUTOMATED NEUTROPHIL # 2.4 TH/MM3 (1.8-7.7); BASOPHIL % 0.7 % (0.0-2.0); EOSINOPHIL # 0.3 TH/MM3 (0-0.4); EOSINOPHIL % 7.6 % (0.0-4.0); HEMATOCRIT 39.1 % (39.0-51.0); HEMO FLAGS DIFF FINAL; LYMPH % 14.2 % (9.0-44.0); LYMPHOCYTE # 0.5 TH/MM3 (1.0-4.8); MEAN CELL VOLUME 80.7 FL (80.0-100.0); MEAN CORPUSCULAR HEMOGLOBIN 27.6 PG (27.0-34.0); MEAN CORPUSCULAR HGB CONC 34.2 % (32.0-36.0); MONO % 10.8 % (0.0-8.0); NEUT % 66.7 % (16.0-70.0); PLATELET COUNT 242 TH/MM3 (150-450); RED BLOOD COUNT 4.84 MIL/MM3 (4.50-5.90); RED CELL DISTRIBUTION WIDTH 13.1 % (11.6-17.2); WHITE BLOOD COUNT 3.6 TH/MM3 (4.0-11.0)
[2016-08-19 01:48] LABS: ALT (GPT) 22 U/L (12-78); ANION GAP 5 MEQ/L (5-15); AST (GOT) 19 U/L (15-37); BICARBONATE 33.3 MEQ/L (21.0-32.0); BLOOD UREA NITROGEN 19 MG/DL (7-18); CHLORIDE 100 MEQ/L (98-107); GLOMERULAR FILTRATION RATE 120 ML/MIN (>89); SODIUM (NA) 138 MEQ/L (136-145)
[2016-08-19 01:50] LABS: ALKALINE PHOSPHATASE 88 U/L (45-117); TOTAL BILIRUBIN ADULT 0.4 MG/DL (0.2-1.0)
[2016-08-19] MEDS ORDERED: ZOFR4TAB3 SL (02:14)
== END 2016-08-19 03:43 | disposition home or self-care (01) ==
LOC: NEPE 22:52
DX: K29.00 Acute gastritis without bleeding (principal); R53.1 Weakness; E11.9 Type 2 diabetes mellitus without complications; Z21 Asymptomatic human immunodeficiency virus [HIV] infection status; Z79.4 Long term (current) use of insulin; Z87.09 Personal history of other diseases of the respiratory system; Z87.19 Personal history of other diseases of the digestive system
CPT/HCPCS: 80053; 83690; 85025; 96374; 99284; J2405; J7030

== ENCOUNTER 2016-08-26 23:20 | Emergency (ER) | payer MEDICAID ==
[~2016-08-26] VITALS: Ht 188 cm; Wt 72.0 kg
[~2016-08-26 23:20] MED LIST changes: -FAMO1TAB37 PO
[2016-08-26 23:22] VITALS: BP 122/89; PULSE 96; RESP 18; TEMP 97.9; O2SAT 100
--- NOTE | 2016-08-26 23:54 | PD ---
HPI Chief Complaint: Flank/Kidney Pain Time Seen by Provider: 23:54 Travel History International Travel<30 days: No Contact w/Intl Traveler<30days: No Traveled to known affect area: No History of Present Illness HPI 26-year-old male with history of diabetes, who is HIV positive he states his CD4 count is "good" presents to the emergency department today for evaluation of right flank pain. Patient states it started about 2 hours ago, acute onset, it is mostly in the right upper quadrant and radiates to the back. He has vomited twice. It has been without lewis red blood or coffee grounds. Patient denies any known injury. No urinary symptoms. No other symptoms to report. PFSH Past Medical History Asthma: Yes Autoimmune Disease: Yes (HIV) Blood Disorders: No Cancer: No Cardiovascular Problems: No COPD: No Diabetes: Yes Diminished Hearing: No Endocrine: Yes Gastrointestinal Disorders: Yes (GASTRITIS) Genitourinary: No Immune Disorder: Yes (HIV) Implanted Vascular Access Dvce: No Musculoskeletal: No Neurologic: No Psychiatric: No Reproductive: No Respiratory: Yes Sleep Apnea: No Thyroid Disease: No Past Surgical History Genitourinary Surgery: Yes (SCOPE) Pacemaker: No Other Surgery: Yes (ankle) Social History Alcohol Use: No Tobacco Use: No Substance Use: No Allergies-Medications (Allergen,Severity, Reaction): Coded Allergies: Aspirin (Verified Allergy, Severe, SWELLING, 08/26/16) Reported Meds & Prescriptions Reported Meds & Active Scripts Active Zofran Odt (Ondansetron Odt) 4 Mg Tab 4 Mg SL Q6HR PRN Humulin R Inj (Insulin Human Regular) 1,000 Unit/10 Ml Vial 1-9 Units SQ ACHS Max dose at bedtime( )units; sugars < 70(0)units; sugars 150-199,(1)unit; sugars 200-249(3)units; sugars 250-299,(5)units; sugars 300-349(7)units; sugars more than 349(9)units. Reported Metformin ER (Metformin HCl) 500 Mg Jese 500 Mg PO DAILY With evening meal [Hiv Med] PO DAILY Humulin R Inj (Insulin Human Regular) 1,000 Unit/10 Ml Vial 2-10 Units SQ TIDAC PRN IMPORTANT TO EAT A MEAL WITHIN 30-60 MINUTES OF DOSING Review of Systems Except as stated in HPI: all other systems reviewed are Neg Physical Exam Narrative GENERAL: Thin male patient, in no acute distress. Patient is sitting up texting when I walked into the room. SKIN: Focused skin assessment warm/dry. HEAD: Atraumatic. Normocephalic. EYES: Pupils equal and round. No scleral icterus. No injection or drainage. ENT: No nasal bleeding or discharge. Mucous membranes pink and moist. NECK: Trachea midline. No JVD. CARDIOVASCULAR: Regular rate and rhythm. No murmur appreciated. RESPIRATORY: No accessory muscle use. Clear to auscultation. Breath sounds equal bilaterally. GASTROINTESTINAL: Abdomen soft, nondistended. Right upper quadrant tenderness to deep palpation. There is also mild right CVA tenderness. MUSCULOSKELETAL: No obvious deformities. No clubbing. No cyanosis. No edema. NEUROLOGICAL: Awake and alert. No obvious cranial nerve deficits. Motor grossly within normal limits. Normal speech. Data Data Last Documented VS Vital Signs Date Time Temp Pulse Resp B/P Pulse Ox O2 Delivery O2 Flow Rate FiO2 08/26/16 23:22 97.9 96 18 122/89 100 Orders Iv Access Insert/Monitor (08/26/16 23:46) Complete Blood Count With Diff (08/26/16 23:46) Urinalysis - C+S If Indicated (08/26/16 23:46) Ketorolac Inj (Toradol Inj) (08/27/16 00:00) Sodium Chlor 0.9% 1000 Ml Inj (Ns 1000 M (08/27/16 00:00) Comprehensive Metabolic Panel (08/26/16 23:55) Lipase (08/26/16 23:55) Labs Laboratory Tests Test 08/27/16 00:00 White Blood Count 3.1 TH/MM3 Red Blood Count 4.27 MIL/MM3 Hemoglobin 11.7 GM/DL Hematocrit 34.5 % Mean Corpuscular Volume 80.8 FL Mean Corpuscular Hemoglobin 27.4 PG Mean Corpuscular Hemoglobin 33.9 % Concent Red Cell Distribution Width 12.8 % Platelet Count 186 TH/MM3 Mean Platelet Volume 9.0 FL Neutrophils (%) (Auto) 62.6 % Lymphocytes (%) (Auto) 17.7 % Monocytes (%) (Auto) 10.4 % Eosinophils (%) (Auto) 8.5 % Basophils (%) (Auto) 0.8 % Neutrophils # (Auto) 1.9 TH/MM3 Lymphocytes # (Auto) 0.5 TH/MM3 Monocytes # (Auto) 0.3 TH/MM3 Eosinophils # (Auto) 0.3 TH/MM3 Basophils # (Auto) 0.0 TH/MM3 CBC Comment DIFF FINAL Differential Comment MDM Medical Decision Making Medical Screen Exam Complete: Yes Emergency Medical Condition: Yes Medical Record Reviewed: Yes Differential Diagnosis Renal calculi versus UTI versus renal colic versus cholecystitis versus cholelithiasis versus biliary colic versus muscle strain versus spasm Narrative Course 26-year-old male presents to emergency department for evaluation of right sided flank/right upper quadrant abdominal pain. Patient appears without distress. His vital signs are stable. He does have right upper quadrant tenderness to deep palpation as well as mild right CVA tenderness. Lab work is ordered for further evaluation of this. Her pain and given IV normal saline bolus. 2300 report has been given to Abdiaziz Merritt PA-C. Disposition will pend his judgment. Condition: Stable Cecille Hopson Aug 26, 2016 23:54
[2016-08-27] MEDS ORDERED: KETOROLAC TROMETHAMINE 30 MG/ML (IVP) VIAL IV PUSH ONE
[2016-08-27 00:21] LABS: AUTOMATED NEUTROPHIL # 1.9 TH/MM3 (1.8-7.7); BASOPHIL % 0.8 % (0.0-2.0); EOSINOPHIL # 0.3 TH/MM3 (0-0.4); EOSINOPHIL % 8.5 % (0.0-4.0); HEMATOCRIT 34.5 % (39.0-51.0); HEMO FLAGS DIFF FINAL; LYMPH % 17.7 % (9.0-44.0); LYMPHOCYTE # 0.5 TH/MM3 (1.0-4.8); MEAN CELL VOLUME 80.8 FL (80.0-100.0); MEAN CORPUSCULAR HEMOGLOBIN 27.4 PG (27.0-34.0); MEAN CORPUSCULAR HGB CONC 33.9 % (32.0-36.0); MONO % 10.4 % (0.0-8.0); NEUT % 62.6 % (16.0-70.0); PLATELET COUNT 186 TH/MM3 (150-450); RED BLOOD COUNT 4.27 MIL/MM3 (4.50-5.90); RED CELL DISTRIBUTION WIDTH 12.8 % (11.6-17.2); WHITE BLOOD COUNT 3.1 TH/MM3 (4.0-11.0)
[2016-08-27 00:51] LABS: ALT (GPT) 19 U/L (12-78); ANION GAP 6 MEQ/L (5-15); AST (GOT) 15 U/L (15-37); BICARBONATE 30.7 MEQ/L (21.0-32.0); BLOOD UREA NITROGEN 16 MG/DL (7-18); CHLORIDE 102 MEQ/L (98-107); GLOMERULAR FILTRATION RATE 117 ML/MIN (>89); POTASSIUM 3.7 MEQ/L (3.5-5.1); SODIUM (NA) 139 MEQ/L (136-145)
[2016-08-27 00:53] LABS: ALKALINE PHOSPHATASE 86 U/L (45-117); TOTAL BILIRUBIN ADULT 0.7 MG/DL (0.2-1.0)
[2016-08-27] MEDS ORDERED: SODIUM CHLOR 0.9% 1000 ML INJ 1,000 ML IV ONE ×2 (02:30)
--- NOTE | 2016-08-27 03:56 | PD ---
Physical Exam Date Seen by Provider: Aug 27, 2016 Time Seen by Provider: 03:55 Narrative GENERAL: This is a well-nourished, well-developed patient, in no apparent distress. SKIN: No rashes, ecchymoses or lesions. Warm and dry. HEAD: Atraumatic. Normocephalic. EYES: PERRL, EOMI, no discharge or injection. No scleral icterus. EARS: Clear NOSE: Nasal turbinates appear normal. THROAT: Mucosa pink and moist. Airway patent. NECK: Trachea midline. supple, moves head freely. LUNGS: Clear to auscultation. CV: Regular in rhythm. ABDOMEN: Soft nontender. EXT: No clubbing cyanosis or edema. Data Data Last Documented VS Vital Signs Date Time Temp Pulse Resp B/P Pulse Ox O2 Delivery O2 Flow Rate FiO2 08/26/16 23:22 97.9 96 18 122/89 100 Orders Iv Access Insert/Monitor (08/26/16 23:46) Complete Blood Count With Diff (08/26/16 23:46) Urinalysis - C+S If Indicated (08/26/16 23:46) Ketorolac Inj (Toradol Inj) (08/27/16 00:00) Sodium Chlor 0.9% 1000 Ml Inj (Ns 1000 M (08/27/16 00:00) Comprehensive Metabolic Panel (08/26/16 23:55) Lipase (08/26/16 23:55) Sodium Chlor 0.9% 1000 Ml Inj (Ns 1000 M (08/27/16 02:30) Labs Laboratory Tests Test 08/27/16 00:00 White Blood Count 3.1 TH/MM3 Red Blood Count 4.27 MIL/MM3 Hemoglobin 11.7 GM/DL Hematocrit 34.5 % Mean Corpuscular Volume 80.8 FL Mean Corpuscular Hemoglobin 27.4 PG Mean Corpuscular Hemoglobin 33.9 % Concent Red Cell Distribution Width 12.8 % Platelet Count 186 TH/MM3 Mean Platelet Volume 9.0 FL Neutrophils (%) (Auto) 62.6 % Lymphocytes (%) (Auto) 17.7 % Monocytes (%) (Auto) 10.4 % Eosinophils (%) (Auto) 8.5 % Basophils (%) (Auto) 0.8 % Neutrophils # (Auto) 1.9 TH/MM3 Lymphocytes # (Auto) 0.5 TH/MM3 Monocytes # (Auto) 0.3 TH/MM3 Eosinophils # (Auto) 0.3 TH/MM3 Basophils # (Auto) 0.0 TH/MM3 CBC Comment DIFF FINAL Differential Comment Sodium Level 139 MEQ/L Potassium Level 3.7 MEQ/L Chloride Level 102 MEQ/L Carbon Dioxide Level 30.7 MEQ/L Anion Gap 6 MEQ/L Blood Urea Nitrogen 16 MG/DL Creatinine 0.93 MG/DL Estimat Glomerular Filtration 117 ML/MIN Rate Random Glucose 171 MG/DL Calcium Level 8.4 MG/DL Total Bilirubin 0.7 MG/DL Aspartate Amino Transf 15 U/L (AST/SGOT) Alanine Aminotransferase 19 U/L (ALT/SGPT) Alkaline Phosphatase 86 U/L Total Protein 9.0 GM/DL Albumin 3.5 GM/DL Lipase 121 U/L [facility] Medical Record Reviewed: Yes Supervised Visit with GEMMA: Yes Differential Diagnosis . Narrative Course The patient has received 2 L of normal saline. Toradol 30 mg IV. He has not been able to give a urine. He states that when he first came in he gave a urine specimen but it was accidentally dumped. The patient states that his feeling much better and would like to go home. This is abdominal pain Diagnosis Primary Impression: Abdominal pain Qualified Code: R10.84 - Generalized abdominal pain Patient Instructions: General Instructions Additional Instruction: Rest. Increase fluids. Tylenol for pain. Follow-up with a medical doctor his week for recheck. Return to the ER if any problems. Med/Other Pt SpecificInfo: No Change to Meds, No Meds Exist/No RX given Disposition: 01 DISCHARGE HOME Condition: Stable Christiano Cobb Aug 27, 2016 03:56
[2016-08-27 04:08] VITALS: BP 118/76
== END 2016-08-27 04:11 | disposition home or self-care (01) ==
LOC: NEPD 23:20
DX: R10.84 Generalized abdominal pain (principal); R11.10 Vomiting, unspecified; E11.9 Type 2 diabetes mellitus without complications; Z21 Asymptomatic human immunodeficiency virus [HIV] infection status; Z79.4 Long term (current) use of insulin; Z87.09 Personal history of other diseases of the respiratory system; Z87.19 Personal history of other diseases of the digestive system
CPT/HCPCS: 80053; 83690; 85025; 96361; 96374; 99284; J1885; J7030

== ENCOUNTER 2016-09-05 15:18 | Emergency (ER) | payer MEDICAID ==
[~2016-09-05] VITALS: Ht 188 cm; Wt 72.7 kg
[2016-09-05 15:19] VITALS: BP 116/77; PULSE 93; RESP 16; TEMP 98.4; O2SAT 99
[2016-09-05] MEDS ORDERED: SODIUM CHLOR 0.9% 1000 ML INJ 1,000 ML IV ONE ×2 (17:44→18:14)
[2016-09-05] MEDS ORDERED: KETOROLAC TROMETHAMINE 30 MG/ML (IVP) VIAL IV PUSH ONE (17:45)
[2016-09-05] MEDS ORDERED: METOCLOPRAMIDE HCL 10 MG/2 ML VIAL IV PUSH ONE (17:45)
[2016-09-05] MEDS ORDERED: SODIUM CHLORIDE 0.9% FLUSH 10 ML FLUSH IVF PRN (17:45)
--- NOTE | 2016-09-05 17:49 | PD ---
HPI Chief Complaint: Headache Time Seen by Provider: 17:41 Travel History International Travel<30 days: No Contact w/Intl Traveler<30days: No Traveled to known affect area: No History of Present Illness HPI 26-year-old male with history of insulin dependent diabetes here for evaluation of headache. Patient reports that the pain is on the left side of his head, however points to the right side of his head when he explains his pain. States that the pain started 3 days ago and described as though someone is punching him in the head. He has also had some nausea and vomiting. Pain is now 10 out of 10, onset was gradual. No fevers or chills. No trauma. PFSH Past Medical History Asthma: Yes Autoimmune Disease: Yes (HIV) Blood Disorders: Yes (HIV) Cancer: No Cardiovascular Problems: No COPD: No Diabetes: Yes (TYPE 1) Patient Takes Glucophage: No Diminished Hearing: No Endocrine: Yes Gastrointestinal Disorders: Yes (GASTRITIS) Genitourinary: No Immune Disorder: Yes (HIV) Implanted Vascular Access Dvce: No Musculoskeletal: No Neurologic: No Psychiatric: No Reproductive: No Respiratory: Yes Sleep Apnea: No Thyroid Disease: No Tetanus Vaccination: < 5 Years Past Surgical History Genitourinary Surgery: Yes (SCOPE) Pacemaker: No Other Surgery: Yes (ankle) Social History Alcohol Use: No Tobacco Use: No Substance Use: No Allergies-Medications (Allergen,Severity, Reaction): Coded Allergies: Aspirin (Verified Allergy, Severe, SWELLING, 09/05/16) Reported Meds & Prescriptions Reported Meds & Active Scripts Active Zofran Odt (Ondansetron Odt) 4 Mg Tab 4 Mg SL Q6HR PRN Humulin R Inj (Insulin Human Regular) 1,000 Unit/10 Ml Vial 1-9 Units SQ ACHS Max dose at bedtime( )units; sugars < 70(0)units; sugars 150-199,(1)unit; sugars 200-249(3)units; sugars 250-299,(5)units; sugars 300-349(7)units; sugars more than 349(9)units. Reported [Hiv Med] PO DAILY Humulin R Inj (Insulin Human Regular) 1,000 Unit/10 Ml Vial 2-10 Units SQ TIDAC PRN IMPORTANT TO EAT A MEAL WITHIN 30-60 MINUTES OF DOSING Review of Systems Except as stated in HPI: all other systems reviewed are Neg Physical Exam Narrative GENERAL: Well-developed, well-nourished, comfortable, talking on cell phone, no apparent distress. SKIN: Focused skin assessment warm/dry. No rash. No pallor. HEAD: Atraumatic. Normocephalic. EYES: Pupils equal and round. No scleral icterus. No injection or drainage. ENT: Mucous membranes pink and dry. NECK: Trachea midline. No JVD. No nuchal rigidity. CARDIOVASCULAR: Regular rate and rhythm. No murmur appreciated. RESPIRATORY: No accessory muscle use. Clear to auscultation. Breath sounds equal bilaterally. GASTROINTESTINAL: Abdomen soft, non-tender, nondistended. MUSCULOSKELETAL: No obvious deformities. No clubbing. No cyanosis. No edema. NEUROLOGICAL: Awake and alert. No obvious cranial nerve deficits. Motor grossly within normal limits. Normal speech. PSYCHIATRIC: Appropriate mood and affect; insight and judgment normal. Data Data Last Documented VS Vital Signs Date Time Temp Pulse Resp B/P Pulse Ox O2 Delivery O2 Flow Rate FiO2 09/05/16 18:05 96 09/05/16 15:19 98.4 93 16 116/77 Room Air Orders Complete Blood Count With Diff (09/05/16 17:44) Comprehensive Metabolic Panel (09/05/16 17:44) Beta Hydroxybutyrate (Acetone) (09/05/16 17:44) Ecg Monitoring (09/05/16 17:44) Iv Access Insert/Monitor (09/05/16 17:44) Oximetry (09/05/16 17:44) NPO (09/05/16 17:44) Sodium Chlor 0.9% 1000 Ml Inj (Ns 1000 M (09/05/16 17:44) Sodium Chlor 0.9% 1000 Ml Inj (Ns 1000 M (09/05/16 18:14) Sodium Chloride 0.9% Flush (Ns Flush) (09/05/16 17:45) Ct Brain W/O Iv Contrast(Rout) (09/05/16 ) Metoclopramide Inj (Reglan Inj) (09/05/16 17:45) Ketorolac Inj (Toradol Inj) (09/05/16 17:45) Labs Laboratory Tests Test 09/05/16 18:03 White Blood Count 3.3 TH/MM3 Red Blood Count 4.84 MIL/MM3 Hemoglobin 12.8 GM/DL Hematocrit 39.1 % Mean Corpuscular Volume 80.9 FL Mean Corpuscular Hemoglobin 26.4 PG Mean Corpuscular Hemoglobin 32.6 % Concent Red Cell Distribution Width 12.9 % Platelet Count 199 TH/MM3 Mean Platelet Volume 8.7 FL Neutrophils (%) (Auto) 50.0 % Lymphocytes (%) (Auto) 22.7 % Monocytes (%) (Auto) 12.0 % Eosinophils (%) (Auto) 14.1 % Basophils (%) (Auto) 1.2 % Neutrophils # (Auto) 1.7 TH/MM3 Lymphocytes # (Auto) 0.7 TH/MM3 Monocytes # (Auto) 0.4 TH/MM3 Eosinophils # (Auto) 0.5 TH/MM3 Basophils # (Auto) 0.0 TH/MM3 CBC Comment DIFF FINAL Differential Comment Sodium Level 136 MEQ/L Potassium Level 4.0 MEQ/L Chloride Level 98 MEQ/L Carbon Dioxide Level 32.5 MEQ/L Anion Gap 6 MEQ/L Blood Urea Nitrogen 15 MG/DL Creatinine 0.91 MG/DL Estimat Glomerular Filtration 120 ML/MIN Rate Random Glucose 272 MG/DL Calcium Level 9.0 MG/DL Total Bilirubin 0.5 MG/DL Aspartate Amino Transf 15 U/L (AST/SGOT) Alanine Aminotransferase 18 U/L (ALT/SGPT) Alkaline Phosphatase 100 U/L Total Protein 9.4 GM/DL Albumin 3.5 GM/DL B-Hydroxybutyrate 0.11 MMOL/L [facility] Medical Decision Making Medical Screen Exam Complete: Yes Emergency Medical Condition: Yes Differential Diagnosis Tension headache, cluster headache, migraine headache, SAH/meningitis/ encephalitis unlikely, hyperglycemia, DKA Narrative Course Initial vital signs show heart rate 93, blood pressure 116/77, pulse ox 99% on room air, oral temp of 98.4F. CBC shows WBC 3.3 which is around his baseline, hemoglobin 12.8, hematocrit 39.1 , platelets 199. CMP is remarkable for random glucose 272, otherwise unremarkable. Bicarbonate is 32.5. Beta hCG is 0.11. The patient is not in DKA. CT head: CONCLUSION: Extensive pansinusitis. Patient was made aware of all findings. He was given 2 L of normal saline IV, IV Toradol, and IV Reglan, and reports that his headache has resolved. He states he feels a whole lot better. I will start him on Augmentin for his pansinusitis. He is stable for discharge home with outpatient follow-up with his primary care physician this week. He was informed on when to return to the emergency department. He verbalizes understanding and agreement with plan. Diagnosis Primary Impression: Sinusitis Qualified Code: J32.9 - Sinusitis, unspecified chronicity, unspecified location Referrals: Primary Care Physician 3 days Additional Instructions: Follow-up with your primary care physician this week. Take antibiotic as prescribed. Return to the emergency department for worsening symptoms or any other concerns. Scripts Amoxicillin-Clavulanate (Augmentin)875-125 Mg Tab1 Tab PO BID 7 Days Ref 0 Prov:Thomas Holbrook MD 09/05/16 Disposition: 01 DISCHARGE HOME Condition: Stable Thomas Holbrook MD Sep 05, 2016 17:49
[2016-09-05 18:05] VITALS: O2SAT 96
[2016-09-05 18:20] LABS: AUTOMATED NEUTROPHIL # 1.7 TH/MM3 (1.8-7.7); BASOPHIL % 1.2 % (0.0-2.0); EOSINOPHIL # 0.5 TH/MM3 (0-0.4); EOSINOPHIL % 14.1 % (0.0-4.0); HEMATOCRIT 39.1 % (39.0-51.0); HEMO FLAGS DIFF FINAL; LYMPH % 22.7 % (9.0-44.0); LYMPHOCYTE # 0.7 TH/MM3 (1.0-4.8); MEAN CELL VOLUME 80.9 FL (80.0-100.0); MEAN CORPUSCULAR HEMOGLOBIN 26.4 PG (27.0-34.0); MEAN CORPUSCULAR HGB CONC 32.6 % (32.0-36.0); PLATELET COUNT 199 TH/MM3 (150-450); RED BLOOD COUNT 4.84 MIL/MM3 (4.50-5.90); RED CELL DISTRIBUTION WIDTH 12.9 % (11.6-17.2); WHITE BLOOD COUNT 3.3 TH/MM3 (4.0-11.0)
[2016-09-05 18:31] LABS: ALT (GPT) 18 U/L (12-78); ANION GAP 6 MEQ/L (5-15); AST (GOT) 15 U/L (15-37); BICARBONATE 32.5 MEQ/L (21.0-32.0); BLOOD UREA NITROGEN 15 MG/DL (7-18); CHLORIDE 98 MEQ/L (98-107); GLOMERULAR FILTRATION RATE 120 ML/MIN (>89); SODIUM (NA) 136 MEQ/L (136-145)
[2016-09-05 18:33] LABS: ALKALINE PHOSPHATASE 100 U/L (45-117); BETA-HYDROXYBUTYRATE 0.11 MMOL/L (0.00-0.39); TOTAL BILIRUBIN ADULT 0.5 MG/DL (0.2-1.0)
--- NOTE | 2016-09-05 18:41 | RADRPT ---
EXAM DATE/TIME: 09/05/2016 18:31 [facility] COMPARISON: CT BRAIN W/O CONTRAST, April 25, 2012, 20:37. INDICATIONS : Cephalgia. RADIATION DOSE: 32.46 CTDIvol (mGy) MEDICAL HISTORY : HIV. Diabetes mellitus type 1. SURGICAL HISTORY : None. ENCOUNTER: Initial ACUITY: 1 day PAIN SCALE: 10/10 LOCATION: cranial TECHNIQUE: Multiple contiguous axial images were obtained of the head. Using automated exposure control and adjustment of the mA and/or kV according to patient size, radiation dose was kept as low as reasonably achievable to obtain optimal diagnostic quality images. DICOM format image data is av ailable electronically for review and comparison. FINDINGS: There is no evidence for intracranial hemorrhage, mass effect, mass lesions, edema, or extra-axial fl uid collections. The visualized bony structures appear intact. The ventricles are normal size for t he patient's age. There are no signs of acute infarction for technique. There is complete opacificat ion of bilateral frontal sinuses, eithmoid air cells and sphenoid sinuses. CONCLUSION: Extensive pansinusitis. Harish Ferguson MD on September 05, 2016 at 18:38 Board Certified Radiologist. This report was verified electronically.
[2016-09-05] MEDS ORDERED: AUGM875T3 PO (18:47)
[2016-09-05] MEDS ORDERED: AMOXICILLIN/CLAVULANATE K 875 MG TAB PO ONE (19:00)
== END 2016-09-05 19:07 | disposition home or self-care (01) ==
LOC: NEPD 15:18
DX: J32.9 Chronic sinusitis, unspecified (principal); R51 Headache; R11.2 Nausea with vomiting, unspecified; J45.909 Unspecified asthma, uncomplicated; E10.9 Type 1 diabetes mellitus without complications; K29.70 Gastritis, unspecified, without bleeding; Z21 Asymptomatic human immunodeficiency virus [HIV] infection status; Z79.4 Long term (current) use of insulin; Z79.899 Other long term (current) drug therapy
CPT/HCPCS: 70450; 80053; 82010; 85025; 96374; 96375; 99285; J1885; J2765; J7030

== ENCOUNTER 2016-09-16 01:18 | Emergency (ER) | payer MEDICAID ==
[~2016-09-16 01:18] MED LIST changes: +AUGM875T3 PO; -METF500T4 PO
[2016-09-16 01:20] VITALS: BP 130/83; PULSE 88; RESP 16; TEMP 97.8; O2SAT 98
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
== END 2016-09-16 04:57 | disposition home or self-care (01) ==
LOC: NEPD 01:18
DX: S40.012A Contusion of left shoulder, initial encounter (principal); J45.909 Unspecified asthma, uncomplicated; E10.9 Type 1 diabetes mellitus without complications; K29.70 Gastritis, unspecified, without bleeding; Z21 Asymptomatic human immunodeficiency virus [HIV] infection status; Z79.899 Other long term (current) drug therapy; Z79.4 Long term (current) use of insulin; Y04.8XXA Assault by other bodily force, initial encounter
CPT/HCPCS: 73020; 73030; 99283

== ENCOUNTER 2016-10-28 02:42 | Emergency (ER) | payer MEDICAID ==
[~2016-10-28] VITALS: Ht 188 cm; Wt 79.5 kg
[2016-10-28 02:45] VITALS: BP 118/73; PULSE 96; RESP 16; TEMP 98.1; O2SAT 98
[2016-10-28 03:55] VITALS: O2SAT 98
[2016-10-28] MEDS ORDERED: SODIUM CHLOR 0.9% 1000 ML INJ 1,000 ML IV ONE ×2 (04:00→05:45)
[2016-10-28] MEDS ORDERED: SODIUM CHLORIDE 0.9% FLUSH 10 ML FLUSH IVF PRN (04:00)
--- NOTE | 2016-10-28 04:24 | RADRPT ---
EXAM DATE/TIME: 10/28/2016 04:18 [facility] COMPARISON: CHEST SINGLE AP, August 14, 2016, 19:28. INDICATIONS : Cough, shortness of breath. MEDICAL HISTORY : None. SURGICAL HISTORY : None. ENCOUNTER: Initial ACUITY: 1 day PAIN SCORE: 0/10 LOCATION: Bilateral chest FINDINGS: A single view of the chest demonstrates the lungs to be symmetrically aerated without evidence of mas s, infiltrate or effusion. The cardiomediastinal contours are unremarkable. Osseous structures are intact. CONCLUSION: No evidence of acute cardiopulmonary disease. Dank Zabala MD on October 28, 2016 at 4:21 Board Certified Radiologist. This report was verified electronically.
[2016-10-28 04:33] LABS: AUTOMATED NEUTROPHIL # 2.4 TH/MM3 (1.8-7.7); BASOPHIL % 1.1 % (0.0-2.0); BLOOD, URINE NEG (NEG); COMMENT (UR) CULT NOT INDICATED; CULTURE IF INDICATED CULT NOT INDICATED; EOSINOPHIL # 0.4 TH/MM3 (0-0.4); EOSINOPHIL % 9.3 % (0.0-4.0); GLUCOSE,URINE 1000 mg/dL (NEG); HEMATOCRIT 38.2 % (39.0-51.0); HEMO FLAGS DIFF FINAL; KETONE, URINE NEG (NEG); LYMPH % 19.1 % (9.0-44.0); LYMPHOCYTE # 0.7 TH/MM3 (1.0-4.8); MEAN CELL VOLUME 81.4 FL (80.0-100.0); MEAN CORPUSCULAR HEMOGLOBIN 27.5 PG (27.0-34.0); MEAN CORPUSCULAR HGB CONC 33.7 % (32.0-36.0); MONO % 9.2 % (0.0-8.0); MUCUS URINE FEW /lpf (OCC); NEUT % 61.3 % (16.0-70.0); NITRITE,URINE NEG (NEG); PLATELET COUNT 236 TH/MM3 (150-450); RED BLOOD COUNT 4.69 MIL/MM3 (4.50-5.90); RED CELL DISTRIBUTION WIDTH 13.1 % (11.6-17.2); SQUAMOUS EPITHELIAL CELL URINE 1 /hpf (0-5); URINE COLOR LIGHT-YELLOW (YELLW/STRAW); WHITE BLOOD COUNT 3.9 TH/MM3 (4.0-11.0)
[2016-10-28 04:50] LABS: ALKALINE PHOSPHATASE 109 U/L (45-117); BETA-HYDROXYBUTYRATE 0.09 MMOL/L (0.00-0.39); CREATINE KINASE 222 U/L (39-308); TOTAL BILIRUBIN ADULT 0.3 MG/DL (0.2-1.0)
[2016-10-28 04:53] LABS: ALT (GPT) 17 U/L (12-78); ANION GAP 6 MEQ/L (5-15); AST (GOT) 17 U/L (15-37); BICARBONATE 32.3 MEQ/L (21.0-32.0); BLOOD UREA NITROGEN 12 MG/DL (7-18); CHLORIDE 98 MEQ/L (98-107); GLOMERULAR FILTRATION RATE 105 ML/MIN (>89); MAGNESIUM 1.8 MG/DL (1.5-2.5); POTASSIUM 3.9 MEQ/L (3.5-5.1); SODIUM (NA) 136 MEQ/L (136-145)
[2016-10-28 05:28] LABS: APTT (PATIENT) 28.9 SEC (24.3-30.1); PROTHROMBIN TIME - PATIENT 10.7 SEC (9.8-11.6)
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
[2016-10-28] MEDS ORDERED: KETOROLAC TROMETHAMINE 30 MG/ML (IVP) VIAL IV PUSH ONE (05:45)
--- NOTE | 2016-10-28 20:02 | EKG ---
Date Performed: 10/28/2016 Time Performed: 03:34:43 PTAGE: 26 years EKG: Sinus rhythm ST ELEVATION, PROBABLY EARLY REPOLARIZATION NONSPECIFIC ST & T-WAVE ABNORMALITY BORDERLINE ECG PREVIOUS TRACING : 08/14/2016 19.24 DOCTOR: Jaswinder Johnson Interpretating Date/Time 10/28/2016 20:00:07
== END 2016-10-28 06:41 | disposition home or self-care (01) ==
LOC: NEPC 02:42
DX: M94.0 Chondrocostal junction syndrome [Tietze] (principal); B20 Human immunodeficiency virus [HIV] disease; E10.65 Type 1 diabetes mellitus with hyperglycemia; Z79.4 Long term (current) use of insulin
CPT/HCPCS: 71010; 80053; 81001; 82010; 82550; 82552; 83735; 84484; 85025; 85610; 85730; 93005; 96361; 96374; 99285; J1885; J7030

== ENCOUNTER 2016-10-29 19:56 | Emergency (ER) | payer MEDICAID ==
[~2016-10-29] VITALS: Ht 188 cm; Wt 79.5 kg
[2016-10-29 19:58] VITALS: BP 131/86; PULSE 93; RESP 16; TEMP 98.6; O2SAT 95
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
[2016-10-29] MEDS ORDERED: ACETAMINOPHEN 500 MG CPLT PO ONE (20:45)
== END 2016-10-29 22:09 | disposition home or self-care (01) ==
LOC: NEPD 19:56
DX: S76.912A Strain of unspecified muscles, fascia and tendons at thigh level, left thigh, initial encounter (principal); J45.909 Unspecified asthma, uncomplicated; Z21 Asymptomatic human immunodeficiency virus [HIV] infection status; E10.9 Type 1 diabetes mellitus without complications; K29.70 Gastritis, unspecified, without bleeding; X58.XXXA Exposure to other specified factors, initial encounter; Z79.4 Long term (current) use of insulin; Z79.899 Other long term (current) drug therapy; Z88.6 Allergy status to analgesic agent
CPT/HCPCS: 99282

== ENCOUNTER 2016-11-01 20:29 | Emergency (ER) | payer MEDICAID ==
[~2016-11-01] VITALS: Ht 188 cm; Wt 80.0 kg
[~2016-11-01 20:29] MED LIST changes: -AUGM875T3 PO; -ZOFR4TAB3 SL
[2016-11-01 20:35] VITALS: BP 112/59; PULSE 107; RESP 16; TEMP 98.4; O2SAT 99
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
[2016-11-01] MEDS ORDERED: SODIUM CHLORIDE 0.9% FLUSH 10 ML FLUSH IVF PRN (21:15)
[2016-11-01] MEDS ORDERED: SODIUM CHLOR 0.9% 1000 ML INJ 1,000 ML IV ONE (21:15)
[2016-11-01] MEDS ORDERED: ONDANSETRON HCL 4 MG/2 ML VIAL IVP ONE (21:15)
[2016-11-01] MEDS ORDERED: KETOROLAC TROMETHAMINE 30 MG/ML (IVP) VIAL IVP ONE (21:15)
[2016-11-01 21:39] LABS: AUTOMATED NEUTROPHIL # 2.2 TH/MM3 (1.8-7.7); BASOPHIL % 0.6 % (0.0-2.0); EOSINOPHIL # 0.2 TH/MM3 (0-0.4); EOSINOPHIL % 4.9 % (0.0-4.0); HEMATOCRIT 34.4 % (39.0-51.0); HEMO FLAGS DIFF FINAL; LYMPH % 16.7 % (9.0-44.0); LYMPHOCYTE # 0.6 TH/MM3 (1.0-4.8); MEAN CELL VOLUME 80.3 FL (80.0-100.0); MEAN CORPUSCULAR HEMOGLOBIN 26.9 PG (27.0-34.0); MEAN CORPUSCULAR HGB CONC 33.5 % (32.0-36.0); MONO % 12.8 % (0.0-8.0); PLATELET COUNT 235 TH/MM3 (150-450); RED BLOOD COUNT 4.29 MIL/MM3 (4.50-5.90); RED CELL DISTRIBUTION WIDTH 12.7 % (11.6-17.2); WHITE BLOOD COUNT 3.5 TH/MM3 (4.0-11.0)
[2016-11-01 21:47] LABS: BLOOD, URINE NEG (NEG); COMMENT (UR) CULT NOT INDICATED; CULTURE IF INDICATED CULT NOT INDICATED; GLUCOSE,URINE 1000 mg/dL (NEG); GRANULAR CAST, URINE 1 /lpf; HYALINE CAST, URINE 10 /lpf (RARE); KETONE, URINE NEG (NEG); NITRITE,URINE NEG (NEG); SQUAMOUS EPITHELIAL CELL URINE <1 /hpf (0-5); URINE COLOR YELLOW (YELLW/STRAW)
[2016-11-01 22:04] LABS: ANION GAP 5 MEQ/L (5-15); AST (GOT) 13 U/L (15-37); BICARBONATE 30.6 MEQ/L (21.0-32.0); BLOOD UREA NITROGEN 15 MG/DL (7-18); CHLORIDE 98 MEQ/L (98-107); GLOMERULAR FILTRATION RATE 95 ML/MIN (>89); POTASSIUM 3.5 MEQ/L (3.5-5.1); SODIUM (NA) 134 MEQ/L (136-145)
[2016-11-01 22:05] LABS: ALT (GPT) 15 U/L (12-78)
[2016-11-01 22:07] LABS: ALKALINE PHOSPHATASE 93 U/L (45-117); TOTAL BILIRUBIN ADULT 0.4 MG/DL (0.2-1.0)
[2016-11-01] MEDS ORDERED: INSULIN HUMAN REGULAR 1,000 UNITS/10 ML VIAL SQ ONE (22:15)
[2016-11-01] MEDS ORDERED: IBUP-232 PO (22:16)
[2016-11-01] MEDS ORDERED: MAPA325T PO (22:16)
[2016-11-02 00:01] LABS: CHLAMYDIA PCR NOT DETECTED (NOT DETECT); NEISSERIA PCR NOT DETECTED (NOT DETECT)
== END 2016-11-01 22:57 | disposition home or self-care (01) ==
LOC: NEPC 20:29
DX: R10.9 Unspecified abdominal pain (principal); R11.0 Nausea; E11.9 Type 2 diabetes mellitus without complications; Z79.4 Long term (current) use of insulin; Z21 Asymptomatic human immunodeficiency virus [HIV] infection status
CPT/HCPCS: 80053; 81001; 85025; 87491; 87591; 96361; 96372; 96374; 96375; 99284; J1815; J1885; J2405; J7030

== ENCOUNTER 2016-11-03 11:02 | Emergency (ER) | payer MEDICAID ==
[~2016-11-03] VITALS: Ht 188 cm; Wt 80.0 kg
[~2016-11-03 11:02] MED LIST changes: +IBUP-232 PO; +MAPA325T PO
[2016-11-03 11:06] VITALS: BP 128/92; PULSE 80; RESP 16; TEMP 97.9; O2SAT 99
[2016-11-03] MEDS ORDERED: PANTOPRAZOLE INJ 80 MG in SODIUM CHLORIDE 0.9% INJ 35 ML IV ONE (11:17)
[2016-11-03 11:25] VITALS: BP 130/87; PULSE 70; RESP 14; TEMP 97.6; O2SAT 98
[2016-11-03] MEDS ORDERED: SODIUM CHLORIDE 0.9% FLUSH 10 ML FLUSH IVF PRN (11:30)
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
[2016-11-03 11:46] LABS: EOSINOPHIL # 0.3 TH/MM3 (0-0.4); EOSINOPHIL % 13.7 % (0.0-4.0); HEMATOCRIT 35.9 % (39.0-51.0); HEMO FLAGS DIFF FINAL; LYMPH % 28.8 % (9.0-44.0); LYMPHOCYTE # 0.7 TH/MM3 (1.0-4.8); MEAN CELL VOLUME 81.6 FL (80.0-100.0); MEAN CORPUSCULAR HEMOGLOBIN 27.2 PG (27.0-34.0); MEAN CORPUSCULAR HGB CONC 33.3 % (32.0-36.0); MONO % 14.8 % (0.0-8.0); NEUT % 41.7 % (16.0-70.0); PLATELET COUNT 232 TH/MM3 (150-450); RED BLOOD COUNT 4.39 MIL/MM3 (4.50-5.90); RED CELL DISTRIBUTION WIDTH 12.8 % (11.6-17.2); WHITE BLOOD COUNT 2.4 TH/MM3 (4.0-11.0)
[2016-11-03 11:56] LABS: APTT (PATIENT) 28.4 SEC (24.3-30.1); PROTHROMBIN TIME - PATIENT 10.7 SEC (9.8-11.6)
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
[2016-11-03 12:07] LABS: ALT (GPT) 14 U/L (12-78); ANION GAP 5 MEQ/L (5-15); AST (GOT) 14 U/L (15-37); BICARBONATE 30.2 MEQ/L (21.0-32.0); BLOOD UREA NITROGEN 10 MG/DL (7-18); CHLORIDE 103 MEQ/L (98-107); GLOMERULAR FILTRATION RATE 125 ML/MIN (>89); POTASSIUM 3.8 MEQ/L (3.5-5.1); SODIUM (NA) 138 MEQ/L (136-145)
[2016-11-03 12:10] LABS: ALKALINE PHOSPHATASE 89 U/L (45-117); TOTAL BILIRUBIN ADULT 0.8 MG/DL (0.2-1.0)
[2016-11-03] MEDS ORDERED: ZOFR4TAB3 SL (12:19)
[2016-11-03] MEDS ORDERED: PANT20 PO (12:19)
== END 2016-11-03 16:49 | disposition home or self-care (01) ==
LOC: NEPE 11:02
DX: K92.0 Hematemesis (principal); R51 Headache
CPT/HCPCS: 71010; 80053; 83690; 85025; 85610; 85730; 96365; 99284; C9113

== ENCOUNTER 2016-11-07 18:28 | Emergency (ER) | payer MEDICAID ==
[~2016-11-07] VITALS: Ht 180.3 cm; Wt 75.0 kg
[~2016-11-07 18:28] MED LIST changes: +PANT20 PO; +ZOFR4TAB3 SL
[2016-11-07 18:31] VITALS: BP 102/68; PULSE 104; RESP 20; TEMP 97.7; O2SAT 98
[2016-11-07] MEDS ORDERED: SODIUM CHLOR 0.9% 1000 ML INJ 1,000 ML IV ONE ×2 (19:19→19:49)
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
[2016-11-07] MEDS ORDERED: SODIUM CHLORIDE 0.9% FLUSH 10 ML FLUSH IVF PRN (19:30)
[2016-11-07 19:40] VITALS: BP 107/65; PULSE 78; RESP 14; O2SAT 98
[2016-11-07 19:51] LABS: AUTOMATED NEUTROPHIL # 1.9 TH/MM3 (1.8-7.7); BASOPHIL % 0.7 % (0.0-2.0); EOSINOPHIL # 0.4 TH/MM3 (0-0.4); EOSINOPHIL % 11.4 % (0.0-4.0); HEMATOCRIT 39.2 % (39.0-51.0); HEMO FLAGS DIFF FINAL; LYMPHOCYTE # 0.6 TH/MM3 (1.0-4.8); MEAN CORPUSCULAR HEMOGLOBIN 26.9 PG (27.0-34.0); MEAN CORPUSCULAR HGB CONC 33.2 % (32.0-36.0); MONO % 12.9 % (0.0-8.0); PLATELET COUNT 230 TH/MM3 (150-450); RED BLOOD COUNT 4.84 MIL/MM3 (4.50-5.90); RED CELL DISTRIBUTION WIDTH 12.9 % (11.6-17.2); WHITE BLOOD COUNT 3.3 TH/MM3 (4.0-11.0)
[2016-11-07 20:04] LABS: BLOOD GAS VENOUS BASE EXCESS 5.1 mmol/L (-2-2); BLOOD GAS VENOUS HCO3 30 mmol/L (22-26); BLOOD GAS VENOUS O2 CONTENT 2.1 Vol % (9.0-17.0); BLOOD GAS VENOUS O2 HGB SAT 12 % (70-76); BLOOD GAS VENOUS PCO2 55 mmHg (44-48); BLOOD GAS VENOUS pH 7.36 (7.360-7.400); TEMP CORR TO 98.6
[2016-11-07 20:06] LABS: BLOOD GAS VENOUS PO2 14 mmHg (35-40)
[2016-11-07 20:07] LABS: DRAW SITE PIV; FIO2 21 %; STAT YES
[2016-11-07 20:16] LABS: ALT (GPT) 16 U/L (12-78)
[2016-11-07 20:18] LABS: ANION GAP 4 MEQ/L (5-15)
[2016-11-07 20:19] LABS: ALKALINE PHOSPHATASE 107 U/L (45-117); AST (GOT) 19 U/L (15-37); BETA-HYDROXYBUTYRATE 0.14 MMOL/L (0.00-0.39); BICARBONATE 30.7 MEQ/L (21.0-32.0); BLOOD UREA NITROGEN 20 MG/DL (7-18); CHLORIDE 94 MEQ/L (98-107); CREATINE KINASE 142 U/L (39-308); GLOMERULAR FILTRATION RATE 81 ML/MIN (>89); MAGNESIUM 1.7 MG/DL (1.5-2.5); SODIUM (NA) 129 MEQ/L (136-145); TOTAL BILIRUBIN ADULT 0.7 MG/DL (0.2-1.0)
[2016-11-07 22:24] LABS: BACTERIA, URINE RARE /hpf; BLOOD, URINE NEG (NEG); COMMENT (UR) CULT NOT INDICATED; CULTURE IF INDICATED CULT NOT INDICATED; GLUCOSE,URINE 1000 mg/dL (NEG); GRANULAR CAST, URINE 1 /lpf; HYALINE CAST, URINE 17 /lpf (RARE); KETONE, URINE NEG (NEG); MUCUS URINE FEW /lpf (OCC); NITRITE,URINE NEG (NEG); PH, URINE 5.5 (5.0-8.5); SQUAMOUS EPITHELIAL CELL URINE <1 /hpf (0-5); URINE COLOR YELLOW (YELLW/STRAW)
[2016-11-08 03:34] LABS: CHLAMYDIA PCR NOT DETECTED (NOT DETECT); NEISSERIA PCR NOT DETECTED (NOT DETECT)
[2016-11-12 07:49] LABS: CRITICAL VALUE YES
== END 2016-11-08 04:09 | disposition home or self-care (01) ==
LOC: NEPD 18:28
DX: R30.0 Dysuria (principal); M79.1 Myalgia; E11.65 Type 2 diabetes mellitus with hyperglycemia; Z79.4 Long term (current) use of insulin
CPT/HCPCS: 80053; 80307; 81001; 82010; 82550; 82805; 83735; 85025; 87491; 87591; 99283; J7030

== ENCOUNTER 2016-11-09 13:15 | Emergency (ER) | payer MEDICAID ==
[~2016-11-09] VITALS: Ht 188 cm; Wt 80.0 kg
[2016-11-09 13:17] VITALS: BP 120/67; PULSE 62; RESP 14; TEMP 98.1; O2SAT 98
--- NOTE | 2016-11-09 13:57 | PD ---
HPI . chronic rib pain Chief Complaint: Pain: Acute or Chronic Time Seen by Provider: 13:56 Travel History International Travel<30 days: No Contact w/Intl Traveler<30days: No Traveled to known affect area: No History of Present Illness HPI 26 yr old male here with c/o rib pain. He says it happens all the time on his left rib cage and comes and goes. He says it is mild and he had it today for 2 hours. He denies any chest pain, sob, nausea, vomiting, diaphoresis, or other symptoms. No recent injury. He came to the ED because he doesn't want to see his PCP who is located in [place]. He has not tried any OTC meds. He wanted to be checked out first. PFSH Past Medical History Asthma: Yes Autoimmune Disease: Yes (HIV) Blood Disorders: Yes (HIV) Cancer: No Cardiovascular Problems: No COPD: No Diabetes: Yes Patient Takes Glucophage: No Diminished Hearing: No Endocrine: Yes Gastrointestinal Disorders: Yes (GASTRITIS) Genitourinary: No Immune Disorder: Yes (HIV) Implanted Vascular Access Dvce: No Musculoskeletal: No Neurologic: No Psychiatric: No Reproductive: No Respiratory: Yes Sleep Apnea: No Thyroid Disease: No Past Surgical History Genitourinary Surgery: Yes (SCOPE) Pacemaker: No Other Surgery: Yes (ankle) Social History Alcohol Use: No Tobacco Use: No Substance Use: No Allergies-Medications (Allergen,Severity, Reaction): Coded Allergies: aspirin (Verified Allergy, Severe, SWELLING, 11/03/16) Reported Meds & Prescriptions Reported Meds & Active Scripts Active Protonix (Pantoprazole Sodium) 20 Mg Tab 20 Mg PO DAILY Zofran Odt (Ondansetron Odt) 4 Mg Tab 4 Mg SL Q6HR PRN Mapap (Acetaminophen) 325 Mg Tab 650 Mg PO Q4-6H PRN Ibuprofen 600 Mg Tab 600 Mg PO Q6H PRN Humulin R Inj (Insulin Human Regular) 1,000 Unit/10 Ml Vial 1-9 Units SQ ACHS Max dose at bedtime( )units; sugars < 70(0)units; sugars 150-199,(1)unit; sugars 200-249(3)units; sugars 250-299,(5)units; sugars 300-349(7)units; sugars more than 349(9)units. Reported [Hiv Med] PO DAILY Humulin R Inj (Insulin Human Regular) 1,000 Unit/10 Ml Vial 2-10 Units SQ TIDAC PRN IMPORTANT TO EAT A MEAL WITHIN 30-60 MINUTES OF DOSING Review of Systems General / Constitutional: No: Fever, Chills Eyes: No: Visual changes HENT: No: Headaches Cardiovascular: No: Chest Pain or Discomfort, Tachycardia, Diaphoresis, Syncope , Dyspnea on exertion Respiratory: No: Cough, Shortness of Breath, Wheezing, Sneezing Gastrointestinal: No: Abdominal Pain Genitourinary: No: Dysuria Musculoskeletal: No: Pain Skin: No Rash Neurologic: No: Weakness Psychiatric: No: Depression Endocrine: No: Polydipsia Hematologic/Lymphatic: No: Easy Bruising Physical Exam Narrative GENERAL: AAO x 3, no acute distress, Well-nourished, well-developed patient.comfortable SKIN: Warm and dry. No visible rashes or bruising. HEAD: Normocephalic and atraumatic. EYES: No scleral icterus. No injection or drainage. ENT: No nasal drainage noted. Mucous membranes pink. Airway patent. NECK: Supple, trachea midline. No JVD. CARDIOVASCULAR: Regular rate and rhythm without murmurs, gallops, or rubs. RESPIRATORY: Breath sounds equal bilaterally. No accessory muscle use. No rhonchi or rales. no reproducible pain. GASTROINTESTINAL: Abdomen soft, non-tender, nondistended. EXTREMITIES: No cyanosis or edema. BACK: Nontender without obvious deformity. No CVA tenderness. NEURO: CN II-12 intact PSYCH: AAO x 3, normal affect. Data Data Last Documented VS Vital Signs Date Time Temp Pulse Resp B/P (MAP) Pulse Ox O2 Delivery O2 Flow Rate FiO2 11/09/16 14:02 11/09/16 13:17 98.1 62 14 98 MDM Medical Decision Making Medical Screen Exam Complete: Yes Emergency Medical Condition: Yes Medical Record Reviewed: Yes Differential Diagnosis acute on chronic rib pain, less likely ACS, less likely pneumonia Narrative Course 26 yr old male here with c/o left sided rib pain that comes and goes. Exam is unremarkable. His Vitals are WNL. He has no other complaints. He is here quite frequently for random things and I think he just often times wants reassurance that he is ok or that he can take OTC meds. Today, I discussed his issue and we do not see need for further workup. I do not suspect any acute emergent issue. I recommend he change to a local PCP. Patient verbalized understanding of instructions, questions were answered, and thanked me for their care. I advised them if their condition worsens, please return to the nearest emergency room for further care. Diagnosis Primary Impression: Rib pain on left side Patient Instructions: General Instructions Additional Instructions: Take Tylenol as needed for pain. Follow up with your primary care provider. Try to change your primary care doctor to a local doctor. Disposition: 01 DISCHARGE HOME Condition: Stable Lakeisha Guerra Nov 09, 2016 13:57
== END 2016-11-09 14:16 | disposition home or self-care (01) ==
LOC: NEPK 13:15
DX: R07.81 Pleurodynia (principal); E11.9 Type 2 diabetes mellitus without complications; Z21 Asymptomatic human immunodeficiency virus [HIV] infection status; Z79.4 Long term (current) use of insulin
CPT/HCPCS: 99282

== ENCOUNTER 2016-11-23 19:20 | Emergency (ER) | payer MEDICAID ==
[~2016-11-23] VITALS: Ht 188 cm; Wt 80.0 kg
[2016-11-23 19:22] VITALS: BP 120/74; PULSE 88; RESP 20; TEMP 97.7; O2SAT 100
[2016-11-23] MEDS ORDERED: IBUPROFEN 800 MG TAB PO ONE (21:00)
--- NOTE | 2016-11-23 21:00 | PD ---
HPI Chief Complaint: Chest Pain Time Seen by Provider: 20:48 Travel History International Travel<30 days: No Contact w/Intl Traveler<30days: No Traveled to known affect area: No History of Present Illness HPI 26-year-old male that presents to the ED for evaluation of chest pain. Patient has this chest pain and shortness of breath since yesterday. Patient states that he has a history of asthma per patient. He does have history diabetes. He has been here multiple times especially this month and all for similar. He has had multiple workups including x-rays and d-dimer is to have all been negative. At this time this appears to be costochondritis. He denies any injuries. No fevers chills or sweats. No other medical issues. Pain per patient is 10 out of 10 but does not appear to be in acute distress. He was able to family with no issues. No family history of heart disease. Allergy to aspirin. Patient has not taken anything for this. States that it hurts when he coughs. PFSH Past Medical History Asthma: Yes Autoimmune Disease: Yes (HIV) Blood Disorders: Yes (HIV) Cancer: No Cardiovascular Problems: No COPD: No Diabetes: Yes Patient Takes Glucophage: No Diminished Hearing: No Endocrine: Yes Gastrointestinal Disorders: Yes (GASTRITIS) Genitourinary: No Immune Disorder: Yes (HIV) Implanted Vascular Access Dvce: No Musculoskeletal: No Neurologic: No Psychiatric: No Reproductive: No Respiratory: Yes Sleep Apnea: No Thyroid Disease: No Tetanus Vaccination: Unknown Influenza Vaccination: Yes Past Surgical History Genitourinary Surgery: Yes (SCOPE) Pacemaker: No Other Surgery: Yes (ankle) Social History Alcohol Use: No Tobacco Use: No Substance Use: No Allergies-Medications (Allergen,Severity, Reaction): Coded Allergies: aspirin (Verified Allergy, Severe, SWELLING, 11/03/16) Reported Meds & Prescriptions Reported Meds & Active Scripts Active Protonix (Pantoprazole Sodium) 20 Mg Tab 20 Mg PO DAILY Mapap (Acetaminophen) 325 Mg Tab 650 Mg PO Q4-6H PRN Ibuprofen 600 Mg Tab 600 Mg PO Q6H PRN Humulin R Inj (Insulin Human Regular) 1,000 Unit/10 Ml Vial 1-9 Units SQ ACHS Max dose at bedtime( )units; sugars < 70(0)units; sugars 150-199,(1)unit; sugars 200-249(3)units; sugars 250-299,(5)units; sugars 300-349(7)units; sugars more than 349(9)units. Reported [Hiv Med] PO DAILY Humulin R Inj (Insulin Human Regular) 1,000 Unit/10 Ml Vial 2-10 Units SQ TIDAC PRN IMPORTANT TO EAT A MEAL WITHIN 30-60 MINUTES OF DOSING Review of Systems Except as stated in HPI: all other systems reviewed are Neg Physical Exam Narrative GENERAL: SKIN: Warm and dry. HEAD: Atraumatic. Normocephalic. EYES: Pupils equal and round. No scleral icterus. No injection or drainage. ENT: No nasal bleeding or discharge. Mucous membranes pink and moist. Tongue is midline. No uvula deviation. NECK: Trachea midline. No JVD. CARDIOVASCULAR: Regular rate and rhythm. No murmurs, S3, S4. Chest pain is reproducible with touch as well as with cough. RESPIRATORY: No accessory muscle use. Clear to auscultation. Breath sounds equal bilaterally. GASTROINTESTINAL: Abdomen soft, non-tender, nondistended. Hepatic and splenic margins not palpable. MUSCULOSKELETAL: Extremities without clubbing, cyanosis, or edema. No obvious deformities. Full range of motion of the upper and lower extremities bilaterally. 2+ pulses bilaterally. NEUROLOGICAL: Awake and alert. No obvious cranial nerve deficits. Motor grossly within normal limits. Five out of 5 muscle strength in the arms and legs. Normal speech. PSYCHIATRIC: Appropriate mood and affect; insight and judgment normal. Data Data Last Documented VS Vital Signs Date Time Temp Pulse Resp B/P (MAP) Pulse Ox O2 Delivery O2 Flow Rate FiO2 11/23/16 19:22 97.7 88 20 120/74 (89) 100 Room Air Orders Orders Ibuprofen (Motrin) (11/23/16 21:00) [facility] Medical Decision Making Medical Screen Exam Complete: Yes Emergency Medical Condition: Yes Medical Record Reviewed: Yes Interpretation(s) EKG shows sinus rhythm with no sign of acute ischemia or arrhythmia. Read by me and attending. Differential Diagnosis Chest pain versus a typical chest pain versus normal exam versus costochondritis Narrative Course 26-year-old male that presents to the ED for evaluation of chest pain. Patient was properly examined and was found to have signs and symptoms consistent appears to be a typical chest pain. Patient is a with touch and with cough. This appears to be muscular. He does not appear to be wheezing on exam. He appears to be in no distress and his bowels are reassuring. He had an EKG done at triage that showed no sign of ST elevation or ischemia or arrhythmia. My attending Dr. Collins review of his records and his been here multiple times for similar. No more testing recommended at this time. We'll trial with ibuprofen. Given prescription for this. Follow with PCP. See ED worsening symptoms. Diagnosis Primary Impression: Atypical chest pain Patient Instructions: General Instructions Additional Instructions: Take medication as prescribed. Follow with PCP. See ED worsening symptoms. Med/Other Pt SpecificInfo: Prescription(s) given Disposition: 01 DISCHARGE HOME Condition: Stable Lavelle Darden Nov 23, 2016 20:59
[2016-11-23] MEDS ORDERED: IBUP800T23 PO (21:03)
--- NOTE | 2016-11-23 22:06 | PD ---
Data Data Last Documented VS Vital Signs Date Time Temp Pulse Resp B/P (MAP) Pulse Ox O2 Delivery O2 Flow Rate FiO2 11/23/16 21:27 11/23/16 19:22 97.7 88 20 100 Room Air Orders Orders Ibuprofen (Motrin) (11/23/16 21:00) Electrocardiogram (11/23/16 19:44) MDM Supervised Visit with GEMMA: Yes Narrative Course The history, exam, and medical decision-making in the associated mid-level provider note were completed with my assistance. I reviewed and agree with the findings presented. I attest that I had a [id number] encounter with the patient on the same day, and personally performed and documented my assessment and findings in the medical record. *My assessment and Findings: 18-year-old man with recurrent chest pain. Reviewed old records. Multiple previous negative workups. Looks well. EKG is unremarkable. Recommend outpatient follow-up. NSAIDs for pain. Diagnosis Primary Impression: Atypical chest pain Patient Instructions: General Instructions Departure Forms: Tests/Procedures Additional Instruction: Take medication as prescribed. Follow with PCP. See ED worsening symptoms. Scripts Ibuprofen (Ibuprofen) 800 Mg Tab 800 MG PO Q8H Y for PAIN SCALE 1 TO 10, #20 TAB 0 Refills Prov: Riaz Collins MD 11/23/16 Disposition: 01 DISCHARGE HOME Condition: Stable Riaz Collins MD Nov 23, 2016 22:05
--- NOTE | 2016-11-23 22:45 | EKG ---
Date Performed: 11/23/2016 Time Performed: 19:44:40 PTAGE: 26 years EKG: Sinus rhythm NONSPECIFIC T-WAVE ABNORMALITY BORDERLINE ECG PREVIOUS TRACING : 10/28/2016 03.34 Compared to previous tracing, early repolarization abnormal ity is now less evident. DOCTOR: Julio Mejia Interpretating Date/Time 11/23/2016 22:44:17
== END 2016-11-23 21:46 | disposition home or self-care (01) ==
LOC: NEPC 19:20
DX: R07.89 Other chest pain (principal); R05 Cough; R06.02 Shortness of breath; R94.31 Abnormal electrocardiogram [ECG] [EKG]; J45.909 Unspecified asthma, uncomplicated; E11.9 Type 2 diabetes mellitus without complications; K29.70 Gastritis, unspecified, without bleeding; Z21 Asymptomatic human immunodeficiency virus [HIV] infection status; Z79.4 Long term (current) use of insulin
CPT/HCPCS: 93005; 99283

== ENCOUNTER 2016-12-06 23:10 | Emergency (ER) | payer MEDICAID ==
[~2016-12-06] VITALS: Ht 188 cm; Wt 80.0 kg
[~2016-12-06 23:10] MED LIST changes: +IBUP800T23 PO; -ZOFR4TAB3 SL
[2016-12-06 23:31] VITALS: BP 127/84; PULSE 76; RESP 18; TEMP 97.8; O2SAT 100
[2016-12-06] MEDS ORDERED: ZITHTAB PO (23:59)
--- NOTE | 2016-12-07 00:05 | PD ---
HPI Chief Complaint: Cold / Flu Symptoms Time Seen by Provider: 23:40 Travel History International Travel<30 days: No Contact w/Intl Traveler<30days: No Traveled to known affect area: No History of Present Illness HPI 26-year-old black male insulin-dependent diabetic presents emergency Department with complaints of coughing congestion 2 weeks. He was seen by his doctor yesterday for the same complaint. He states that he advised to take Tylenol and increase his fluids. He did not given any medicines. Patient admits to subjective fever and chills, cough, congestion, pleuritic chest wall pain and general malaise. He reports that his blood sugars have been reading high over last week. He said his blood sugar today was over 400. He has occasional episode of nausea vomiting which is worsened by coughing. He denies any abdominal pain. No dysuria or hematuria. PFSH Past Medical History Asthma: Yes Autoimmune Disease: Yes (HIV) Blood Disorders: Yes (HIV) Cancer: No Cardiovascular Problems: No COPD: No Diabetes: Yes Patient Takes Glucophage: Yes (12/06/2016 0700) Diminished Hearing: No Endocrine: Yes Gastrointestinal Disorders: Yes (GASTRITIS) Genitourinary: No Immune Disorder: Yes (HIV) Implanted Vascular Access Dvce: No Musculoskeletal: No Neurologic: No Psychiatric: No Reproductive: No Respiratory: Yes Sleep Apnea: No Thyroid Disease: No Tetanus Vaccination: Unknown Influenza Vaccination: No Past Surgical History Genitourinary Surgery: Yes (SCOPE) Pacemaker: No Other Surgery: Yes (ankle) Social History Alcohol Use: No Tobacco Use: No Substance Use: No Allergies-Medications (Allergen,Severity, Reaction): Coded Allergies: aspirin (Verified Allergy, Severe, SWELLING, 11/03/16) Reported Meds & Prescriptions Reported Meds & Active Scripts Active Zithromax Z-Arnoldo (Azithromycin) 250 Mg Dspk 250 Mg PO DIRECTED 500 MG (2 tabs) day 1, then 1 tab days 2-5. Ibuprofen 800 Mg Tab 800 Mg PO Q8H PRN Protonix (Pantoprazole Sodium) 20 Mg Tab 20 Mg PO DAILY Mapap (Acetaminophen) 325 Mg Tab 650 Mg PO Q4-6H PRN Ibuprofen 600 Mg Tab 600 Mg PO Q6H PRN Humulin R Inj (Insulin Human Regular) 1,000 Unit/10 Ml Vial 1-9 Units SQ ACHS Max dose at bedtime( )units; sugars < 70(0)units; sugars 150-199,(1)unit; sugars 200-249(3)units; sugars 250-299,(5)units; sugars 300-349(7)units; sugars more than 349(9)units. Reported [Hiv Med] PO DAILY Humulin R Inj (Insulin Human Regular) 1,000 Unit/10 Ml Vial 2-10 Units SQ TIDAC PRN IMPORTANT TO EAT A MEAL WITHIN 30-60 MINUTES OF DOSING Review of Systems Except as stated in HPI: all other systems reviewed are Neg Physical Exam Narrative GENERAL: Well-developed, well-nourished in no acute distress. Nontoxic appearing. HEAD: Normocephalic, atraumatic. EYES: Pupils equal round and reactive. Extraocular motions intact. No scleral icterus. No injection or drainage. ENT: TMs clear without erythema. The external auditory canals clear. Nose: clear . Posterior pharynx is pink and moist. No tonsillar edema or exudate. Uvula midline. Airway patent. NECK: Trachea midline.Supple, nontender, moves head freely. No central bony tenderness or spasm. CARDIOVASCULAR: Regular rate and rhythm without murmurs, gallops, or rubs. RESPIRATORY: Clear to auscultation. Breath sounds equal bilaterally. No wheezes , rales, or rhonchi. GASTROINTESTINAL: Abdomen soft, non-tender, nondistended. No hepato-splenomegaly , or palpable masses. No guarding. EXTREMITIES: No clubbing, cyanosis, or edema. No joint tenderness, effusion, or edema noted. BACK: Nontender without deformity or crepitance. No flank tenderness. Data Data Last Documented VS Vital Signs Date Time Temp Pulse Resp B/P (MAP) Pulse Ox O2 Delivery O2 Flow Rate FiO2 12/06/16 23:31 97.8 76 18 127/84 (98) 100 Orders Orders Blood Glucose (12/06/16 23:46) MDM Medical Decision Making Medical Screen Exam Complete: Yes Emergency Medical Condition: Yes Medical Record Reviewed: Yes Differential Diagnosis MDM: High Differential diagnoses: Pneumonia, bronchitis, URI, asthma, RAD, legionnaire's disease, SARS, ARDS, influenza, bronchiolitis, RSV,PE,CHF Narrative Course Patient's Accu-Chek here in the ER is 211. Patient does not appear toxic. Vital signs are stable. The patient will be given a prescription for Zithromax. This of bronchitis Diagnosis Primary Impression: Bronchitis Patient Instructions: General Instructions Additional Instructions: Rest. Increase fluids. Tylenol and Advil. Robitussin-DM. Zithromax. Check your blood sugars 3-4 times daily. Followup with your Dr. on Friday. Return to the ER for any problems. Med/Other Pt SpecificInfo: Prescription(s) given Scripts Azithromycin (Zithromax Z-Arnoldo) 250 Mg Dspk 250 MG PO DIRECTED for Infection, #1 DSPK 0 Refills 500 MG (2 tabs) day 1, then 1 tab days 2-5. Prov: Ruthie Norris MD 12/06/16 Disposition: 01 DISCHARGE HOME Condition: Stable Christiano Cobb Dec 07, 2016 00:05
== END 2016-12-07 01:14 | disposition home or self-care (01) ==
LOC: NEPD 23:10
DX: J20.9 Acute bronchitis, unspecified (principal); J45.909 Unspecified asthma, uncomplicated; E11.9 Type 2 diabetes mellitus without complications; Z21 Asymptomatic human immunodeficiency virus [HIV] infection status; Z79.899 Other long term (current) drug therapy; Z79.4 Long term (current) use of insulin
CPT/HCPCS: 99283

== ENCOUNTER 2016-12-09 21:06 | Emergency (ER) | payer MEDICAID ==
[~2016-12-09 21:06] MED LIST changes: +ZITHTAB PO
[2016-12-09 21:08] VITALS: BP 124/79; PULSE 79; RESP 16; TEMP 98.2; O2SAT 99
[2016-12-10] MEDS ORDERED: KETOROLAC TROMETHAMINE 60 MG/2 ML (IM) VIAL IM ONE (00:30)
--- NOTE | 2016-12-10 00:35 | RADRPT ---
EXAM DATE/TIME: 12/10/2016 00:04 [facility] COMPARISON: No previous studies available for comparison. INDICATIONS : Right hip pain from unknown injury. MEDICAL HISTORY : None. SURGICAL HISTORY : None. ENCOUNTER: Initial ACUITY: 1 day PAIN SCORE: 6/10 LOCATION: Right hip. FINDINGS: Examination of the right hip was performed with AP Pelvis. The primary and secondary trabecular rupali abigail of the femoral neck is intact. The hip joint is of normal width without significant sclerosis or bony hypertrophy. The acetabulum is grossly intact. CONCLUSION: 1. Negative examination of the hip. Gurdeep Zaragoza MD on December 10, 2016 at 0:33 Board Certified Radiologist. This report was verified electronically.
[2016-12-10] MEDS ORDERED: IBUP800T23 PO (00:42)
--- NOTE | 2016-12-10 00:42 | PD ---
HPI Chief Complaint: Hip Injury Time Seen by Provider: 00:23 Travel History International Travel<30 days: No Contact w/Intl Traveler<30days: No Traveled to known affect area: No History of Present Illness HPI Patient is a 18-year-old male presenting to emergency for evaluation of right hip pain. Patient states that he was playing football yesterday when someone twice his size fell onto his right hip. Patient reports the pain is a 10 out of 10, he took one Advil tablet at 9 PM yesterday. He denies any abdominal pain , nausea, vomiting, weakness, numbness in his extremity. PFSH Past Medical History Asthma: Yes Autoimmune Disease: Yes (HIV) Blood Disorders: Yes (HIV) Cancer: No Cardiovascular Problems: No COPD: No Diabetes: Yes Patient Takes Glucophage: Yes Diminished Hearing: No Endocrine: Yes Gastrointestinal Disorders: Yes (GASTRITIS) Genitourinary: No Immune Disorder: Yes (HIV) Implanted Vascular Access Dvce: No Musculoskeletal: No Neurologic: No Psychiatric: No Reproductive: No Respiratory: Yes Sleep Apnea: No Thyroid Disease: No Past Surgical History Genitourinary Surgery: Yes (SCOPE) Pacemaker: No Other Surgery: Yes (ankle) Social History Alcohol Use: No Tobacco Use: No Substance Use: No Allergies-Medications (Allergen,Severity, Reaction): Coded Allergies: aspirin (Verified Allergy, Severe, SWELLING, 12/10/16) Reported Meds & Prescriptions Reported Meds & Active Scripts Active Ibuprofen 800 Mg Tab 800 Mg PO Q6HR PRN Zithromax Z-Arnoldo (Azithromycin) 250 Mg Dspk 250 Mg PO DIRECTED 500 MG (2 tabs) day 1, then 1 tab days 2-5. Ibuprofen 800 Mg Tab 800 Mg PO Q8H PRN Protonix (Pantoprazole Sodium) 20 Mg Tab 20 Mg PO DAILY Mapap (Acetaminophen) 325 Mg Tab 650 Mg PO Q4-6H PRN Ibuprofen 600 Mg Tab 600 Mg PO Q6H PRN Humulin R Inj (Insulin Human Regular) 1,000 Unit/10 Ml Vial 1-9 Units SQ ACHS Max dose at bedtime( )units; sugars < 70(0)units; sugars 150-199,(1)unit; sugars 200-249(3)units; sugars 250-299,(5)units; sugars 300-349(7)units; sugars more than 349(9)units. Reported [Hiv Med] PO DAILY Humulin R Inj (Insulin Human Regular) 1,000 Unit/10 Ml Vial 2-10 Units SQ TIDAC PRN IMPORTANT TO EAT A MEAL WITHIN 30-60 MINUTES OF DOSING Review of Systems Except as stated in HPI: all other systems reviewed are Neg Musculoskeletal: Positive: Myalgias, Pain Physical Exam Narrative GENERAL: Well-developed, well-nourished, alert male. Resting comfortably in no acute distress. SKIN: Warm and dry. HEAD: Atraumatic. Normocephalic. EYES: Pupils equal and round. No scleral icterus. No injection or drainage. ENT: No nasal bleeding or discharge. Mucous membranes pink and moist. NECK: Trachea midline. No JVD. CARDIOVASCULAR: Regular rate and rhythm. RESPIRATORY: No accessory muscle use. Clear to auscultation. Breath sounds equal bilaterally. GASTROINTESTINAL: Abdomen soft, non-tender, nondistended. Hepatic and splenic margins not palpable. MUSCULOSKELETAL: Extremities without clubbing, cyanosis, or edema. No obvious deformities. Tenderness to palpation over right pelvic bone. NEUROLOGICAL: Awake and alert. No obvious cranial nerve deficits. Motor grossly within normal limits. Five out of 5 muscle strength in the arms and legs. Normal speech. PSYCHIATRIC: Appropriate mood and affect; insight and judgment normal. Data Data Last Documented VS Vital Signs Date Time Temp Pulse Resp B/P (MAP) Pulse Ox O2 Delivery O2 Flow Rate FiO2 12/09/16 21:08 98.2 79 16 124/79 (94) 99 Orders Orders Hip, Uni(Ap&Lat) W Ap Pelvis (12/09/16 ) Ketorolac Inj (Toradol Inj) (12/10/16 00:30) [facility] Medical Decision Making Medical Screen Exam Complete: Yes Emergency Medical Condition: Yes Interpretation(s) Vital Signs Date Time Temp Pulse Resp B/P (MAP) Pulse Ox O2 Delivery O2 Flow Rate FiO2 12/09/16 21:08 98.2 79 16 124/79 (94) 99 Differential Diagnosis Sprain versus strain versus contusion versus fracture versus other Narrative Course Patient is a 26-year-old male that presented one day after sustaining an injury while playing football. Patient complained of pain to his right hip specifically over the pelvic bone. No obvious deformities noted. Patient is full range of motion in the right leg and hip. Imaging ordered and pending. X-ray the right hip, which was read by the radiologist shows no acute bony abnormality. Exam appears most consistent with a contusion. Patient was given Toradol in the emergency department. He was encouraged to alternate heat and ice to affected area, continue range of motion exercises, avoid exacerbating activities. He was further encouraged to follow-up with his primary doctor. Additionally patient can return to emergency department for any new or worsening symptoms. Patient verbalized understanding of instructions. Patient is stable for discharge. Diagnosis Primary Impression: Contusion, hip Qualified Codes: S70.01XA - Contusion of right hip, initial encounter Referrals: Primary Care Physician 1 week Patient Instructions: Contusion in Adults (ED), General Instructions, Hip Pain (ED) Additional Instructions: Follow-up with your primary doctor Take medications as directed and as needed for pain Alternate heat and ice the affected area, continue range of motion exercises, avoid exacerbating activities Return to the Emergency department for any new or worsening symptoms Med/Other Pt SpecificInfo: Prescription(s) given Scripts Ibuprofen (Ibuprofen) 800 Mg Tab 800 MG PO Q6HR Y for PAIN, #40 TAB 0 Refills Prov: Mary Grace Hernandez 12/10/16 Disposition: 01 DISCHARGE HOME Condition: Stable Mary Grace Hernandez Dec 10, 2016 00:42
== END 2016-12-10 00:59 | disposition home or self-care (01) ==
LOC: NEPD 21:06
DX: S70.01XA Contusion of right hip, initial encounter (principal); E11.9 Type 2 diabetes mellitus without complications; Z79.4 Long term (current) use of insulin; Z21 Asymptomatic human immunodeficiency virus [HIV] infection status; Z87.09 Personal history of other diseases of the respiratory system; Z87.19 Personal history of other diseases of the digestive system; W50.0XXA Accidental hit or strike by another person, initial encounter; Y93.61 Activity, american tackle football
CPT/HCPCS: 73502; 96372; 99284; J1885

== ENCOUNTER 2016-12-14 18:38 | Emergency (ER) | payer MEDICAID ==
[~2016-12-14] VITALS: Ht 188 cm; Wt 175.0 kg
[2016-12-14 18:41] VITALS: BP 108/64; PULSE 94; RESP 18; O2SAT 97
[2016-12-14 18:55] VITALS: TEMP 98.5
[2016-12-14] MEDS ORDERED: ZOFR4TAB3 SL (18:59)
--- NOTE | 2016-12-14 18:59 | PD ---
HPI Chief Complaint: General Weakness Time Seen by Provider: 18:50 Travel History International Travel<30 days: No Contact w/Intl Traveler<30days: No Traveled to known affect area: No History of Present Illness HPI 26-year-old man, history diabetes and HIV, presents with 4 hours of vomiting. States he feels a little dizzy. Thinks maybe ate something that was spoiled. He is not sure. No abdominal pain. No diarrhea. No fevers. No definite sick contacts. Taking his HIV medications regularly. Looks otherwise well. History Past Medical History Narrative Medical HIV, on meds, denies history of AIDS, last CD4 count was "very good" Diabetes Social History Alcohol Use: No Tobacco Use: No Allergies-Medications (Allergen,Severity, Reaction): Coded Allergies: aspirin (Verified Allergy, Severe, SWELLING, 12/14/16) Reported Meds & Prescriptions Reported Meds & Active Scripts Active Ibuprofen 800 Mg Tab 800 Mg PO Q6HR PRN Zithromax Z-Arnoldo (Azithromycin) 250 Mg Dspk 250 Mg PO DIRECTED 500 MG (2 tabs) day 1, then 1 tab days 2-5. Ibuprofen 800 Mg Tab 800 Mg PO Q8H PRN Protonix (Pantoprazole Sodium) 20 Mg Tab 20 Mg PO DAILY Mapap (Acetaminophen) 325 Mg Tab 650 Mg PO Q4-6H PRN Reported [Hiv Med] PO DAILY Humulin R Inj (Insulin Human Regular) 1,000 Unit/10 Ml Vial 2-10 Units SQ TIDAC PRN IMPORTANT TO EAT A MEAL WITHIN 30-60 MINUTES OF DOSING Review of Systems Except as stated in HPI: all other systems reviewed are Neg Physical Exam Narrative GENERAL: Thin 26-year-old man, no acute distress. SKIN: Focused skin assessment warm/dry. ENT: No nasal bleeding or discharge. Mucous membranes pink and moist. NECK: Trachea midline. No JVD. CARDIOVASCULAR: Regular rate and rhythm. No murmur appreciated. RESPIRATORY: No accessory muscle use. Clear to auscultation. Breath sounds equal bilaterally. GASTROINTESTINAL: Abdomen soft, non-tender, nondistended. Hepatic and splenic margins not palpable. MUSCULOSKELETAL: No obvious deformities. No edema. NEUROLOGICAL: Awake and alert. No obvious cranial nerve deficits. Motor grossly within normal limits. Normal speech. Data Data Last Documented VS Vital Signs Date Time Temp Pulse Resp B/P (MAP) Pulse Ox O2 Delivery O2 Flow Rate FiO2 10/21/17 18:55 98.5 12/14/16 18:41 94 18 97 Orders Orders Ondansetron Odt (Zofran Odt) (12/14/16 19:00) [facility] Medical Decision Making Medical Screen Exam Complete: Yes Emergency Medical Condition: Yes Differential Diagnosis Gastritis, infectious gastroenteritis, food borne illness, pancreatitis, cholecystitis, other Narrative Course Medical decision-making 18 year-old woman history diabetes and HIV, well-controlled, here with vomiting 4 hours. Looks well. No vomiting here. Does not appear clinically dehydrated. No abdominal pain. Benign exam. No diarrhea. No fevers. Patient with fairly frequent ED visits. I don't think he benefit from laboratory testing at this time. Recommend supportive treatment, oral rehydration. Diagnosis Primary Impression: Nausea & vomiting Additional Instructions: Use Zofran as needed for nausea or vomiting. Return to the emergency department for any worsening abdominal pain, fevers, bloody diarrhea, or any other new or worsening symptoms. Albeit primary doctor in 2-4 days. Med/Other Pt SpecificInfo: Prescription(s) given Scripts Ondansetron Odt (Zofran Odt) 4 Mg Tab 4 MG SL Q8HR Y for Nausea/Vomiting, #30 TAB 0 Refills Prov: Riaz Collins MD 12/14/16 Disposition: 01 DISCHARGE HOME Condition: Stable Riaz Collins MD Dec 14, 2016 18:59
[2016-12-14] MEDS ORDERED: ONDANSETRON ODT 4 MG TAB PO ONE (19:00)
== END 2016-12-14 19:46 | disposition home or self-care (01) ==
LOC: NEPD 18:38
DX: R11.2 Nausea with vomiting, unspecified (principal); E11.9 Type 2 diabetes mellitus without complications; Z21 Asymptomatic human immunodeficiency virus [HIV] infection status; Z79.4 Long term (current) use of insulin
CPT/HCPCS: 99283

== ENCOUNTER 2017-01-05 09:45 | Emergency (ER) | payer MEDICAID ==
[~2017-01-05] VITALS: Ht 188 cm; Wt 78.0 kg
[~2017-01-05 09:45] MED LIST changes: -IBUP-232 PO; +IBUP1TAB7 PO; -IBUP800T23 PO; +ZOFR4TAB3 SL
[2017-01-05 09:47] VITALS: BP 134/87; PULSE 95; RESP 12; TEMP 98.4; O2SAT 96
[2017-01-05] MEDS ORDERED: SODIUM CHLOR 0.9% 1000 ML INJ 1,000 ML IV ONE ×2 (10:05→10:35)
--- NOTE | 2017-01-05 10:09 | PD ---
HPI Chief Complaint: Flank/Kidney Pain Time Seen by Provider: 10:00 Travel History International Travel<30 days: No Contact w/Intl Traveler<30days: No Traveled to known affect area: No History of Present Illness HPI The patient is a 26-year-old [place] male who presents emergency department for left sided pleuritic chest pain and hyperglycemia. The patient states he developed left-sided pleuritic chest pain approximately 6 hours prior to arrival. The patient denies any significant activity at the onset of symptoms. The chest pain is located over the lateral left chest wall and lateral left rib cage, worse with inspiration, and described as sharp and intermittent. He denies any outright shortness of breath, nausea, vomiting, or abdominal pain. He denies any associated hematuria, dysuria, frequency, or urgency. The patient denies any history of pulmonary embolism/DVT denies any recent hospitalizations, travels, or surgeries. Symptoms are moderate without any alleviating factors, exacerbated by inspiration. He also states his blood sugar was elevated in triage at 412, does have a history of diabetes and took Humalog 10 units this morning. PFSH Past Medical History Asthma: Yes Autoimmune Disease: Yes (HIV) Blood Disorders: Yes (HIV) Cancer: No Cardiovascular Problems: No COPD: No Diabetes: Yes Diminished Hearing: No Endocrine: Yes Gastrointestinal Disorders: Yes (GASTRITIS) Genitourinary: No Immune Disorder: Yes (HIV) Implanted Vascular Access Dvce: No Musculoskeletal: No Neurologic: No Psychiatric: No Reproductive: No Respiratory: Yes Sleep Apnea: No Thyroid Disease: No Past Surgical History Genitourinary Surgery: Yes (SCOPE) Pacemaker: No Other Surgery: Yes (ankle) Social History Alcohol Use: No Tobacco Use: No Substance Use: No Allergies-Medications (Allergen,Severity, Reaction): Coded Allergies: aspirin (Verified Allergy, Severe, SWELLING, 12/14/16) Reported Meds & Prescriptions Reported Meds & Active Scripts Active Zofran Odt (Ondansetron Odt) 4 Mg Tab 4 Mg SL Q8HR PRN Ibuprofen 800 Mg Tab 800 Mg PO Q6HR PRN Zithromax Z-Arnoldo (Azithromycin) 250 Mg Dspk 250 Mg PO DIRECTED 500 MG (2 tabs) day 1, then 1 tab days 2-5. Ibuprofen 800 Mg Tab 800 Mg PO Q8H PRN Protonix (Pantoprazole Sodium) 20 Mg Tab 20 Mg PO DAILY Mapap (Acetaminophen) 325 Mg Tab 650 Mg PO Q4-6H PRN Reported [Hiv Med] PO DAILY Humulin R Inj (Insulin Human Regular) 1,000 Unit/10 Ml Vial 2-10 Units SQ TIDAC PRN IMPORTANT TO EAT A MEAL WITHIN 30-60 MINUTES OF DOSING Review of Systems Except as stated in HPI: all other systems reviewed are Neg General / Constitutional: No: Fever, Chills HENT: No: Lightheadedness Cardiovascular: Positive: Chest Pain or Discomfort Respiratory: Positive: Cough, Pleuritic Pain, No: Shortness of Breath Gastrointestinal: No: Nausea, Vomiting, Abdominal Pain Musculoskeletal: No: Edema Neurologic: No: Dizziness Physical Exam Narrative GENERAL: Awake, alert, pleasant 26-year-old male who appears his stated age and is in no acute respiratory distress. SKIN: Focused skin assessment warm/dry. HEAD: Atraumatic. Normocephalic. EYES: Pupils equal and round. No scleral icterus. No injection or drainage. ENT: No nasal bleeding or discharge. Slightly dry mucous membranes. NECK: Trachea midline. No JVD. CARDIOVASCULAR: Regular rate and rhythm. No murmur appreciated. Heart rate in the 90s. Palpation the left chest wall does not reproduce symptoms. RESPIRATORY: No accessory muscle use. Clear to auscultation. Breath sounds equal bilaterally. GASTROINTESTINAL: Abdomen soft, non-tender, nondistended. No rebound tenderness , guarding, rigidity. Back: No CVA tenderness. MUSCULOSKELETAL: No obvious deformities. No clubbing. No cyanosis. No edema. NEUROLOGICAL: Awake and alert. No obvious cranial nerve deficits. Motor grossly within normal limits. Normal speech. PSYCHIATRIC: Appropriate mood and affect; insight and judgment normal. Data Data Last Documented VS Vital Signs Date Time Temp Pulse Resp B/P (MAP) Pulse Ox O2 Delivery O2 Flow Rate FiO2 01/05/17 10:10 99 Room Air 01/05/17 10:10 80 20 01/05/17 09:47 98.4 Orders Orders Electrocardiogram (01/05/17 10:05) Complete Blood Count With Diff (01/05/17 10:05) Comprehensive Metabolic Panel (01/05/17 10:05) Magnesium (Mg) (01/05/17 10:05) Beta Hydroxybutyrate (Acetone) (01/05/17 10:05) Urinalysis - C+S If Indicated (01/05/17 10:05) Chest, Single Ap (01/05/17 10:05) Blood Gas Venous (Vbg) (01/05/17 10:05) Blood Glucose (01/05/17 10:05) Blood Glucose (01/05/17 11:05) Ecg Monitoring (01/05/17 10:05) Iv Access Insert/Monitor (01/05/17 10:05) Oximetry (01/05/17 10:05) NPO (01/05/17 10:05) Sodium Chlor 0.9% 1000 Ml Inj (Ns 1000 M (01/05/17 10:05) Sodium Chlor 0.9% 1000 Ml Inj (Ns 1000 M (01/05/17 10:35) Sodium Chloride 0.9% Flush (Ns Flush) (01/05/17 10:15) Troponin I (01/05/17 10:05) D-Dimer (01/05/17 10:05) Insulin Aspart Inj (Novolog Inj) (01/05/17 11:15) Labs Laboratory Tests Test 01/05/17 10:15 01/05/17 10:22 White Blood Count 3.1 TH/MM3 Red Blood Count 3.94 MIL/MM3 Hemoglobin 10.8 GM/DL Hematocrit 32.6 % Mean Corpuscular Volume 82.7 FL Mean Corpuscular Hemoglobin 27.5 PG Mean Corpuscular Hemoglobin Concent 33.3 % Red Cell Distribution Width 14.2 % Platelet Count 211 TH/MM3 Mean Platelet Volume 8.7 FL Neutrophils (%) (Auto) 55.6 % Lymphocytes (%) (Auto) 18.6 % Monocytes (%) (Auto) 13.2 % Eosinophils (%) (Auto) 12.0 % Basophils (%) (Auto) 0.6 % Neutrophils # (Auto) 1.7 TH/MM3 Lymphocytes # (Auto) 0.6 TH/MM3 Monocytes # (Auto) 0.4 TH/MM3 Eosinophils # (Auto) 0.4 TH/MM3 Basophils # (Auto) 0.0 TH/MM3 CBC Comment DIFF FINAL Differential Comment D-Dimer Quantitative (PE/DVT) 0.22 MG/L FEU Urine Color YELLOW Urine Turbidity CLEAR Urine pH 6.5 Urine Specific [place] 1.026 Urine Protein NEG mg/dL Urine Glucose (UA) 1000 mg/dL Urine Ketones NEG mg/dL Urine Occult Blood NEG Urine Nitrite NEG Urine Bilirubin NEG Urine Urobilinogen LESS THAN 2.0 MG/DL Urine Leukocyte Esterase NEG Urine RBC LESS THAN 1 /hpf Urine WBC LESS THAN 1 /hpf Microscopic Urinalysis Comment CULT NOT INDICATED Blood Urea Nitrogen 11 MG/DL Creatinine 1.05 MG/DL Random Glucose 401 MG/DL Total Protein 8.3 GM/DL Albumin 3.0 GM/DL Calcium Level 8.4 MG/DL Magnesium Level 1.7 MG/DL Alkaline Phosphatase 97 U/L Aspartate Amino Transf (AST/SGOT) 16 U/L Alanine Aminotransferase (ALT/SGPT) 22 U/L Total Bilirubin 0.3 MG/DL Sodium Level 135 MEQ/L Potassium Level 3.8 MEQ/L Chloride Level 100 MEQ/L Carbon Dioxide Level 30.5 MEQ/L Anion Gap 5 MEQ/L Estimat Glomerular Filtration Rate 102 ML/MIN Troponin I LESS THAN 0.02 NG/ML B-Hydroxybutyrate 0.07 MMOL/L Blood Gas Puncture Site IV Blood Gas Patient Temperature 98.6 Venous Blood pH 7.36 Venous Blood Partial Pressure CO2 55 mmHg Venous Blood Partial Pressure O2 31 mmHg Venous Blood HCO3 30 mmol/L Venous Blood Oxygen Saturation 51 % Venous Blood Oxygen Content 7.6 Vol % Venous Blood Base Excess 5.1 mmol/L Oxygen Delivery Device ROOM AIR [facility] Medical Decision Making Medical Screen Exam Complete: Yes Emergency Medical Condition: Yes Medical Record Reviewed: Yes Interpretation(s) EKG reveals normal sinus rhythm with a rate of 74. Nonspecific ST and T-wave changes. Laboratory Tests Test 01/05/17 10:15 01/05/17 10:22 White Blood Count 3.1 TH/MM3 Red Blood Count 3.94 MIL/MM3 Hemoglobin 10.8 GM/DL Hematocrit 32.6 % Mean Corpuscular Volume 82.7 FL Mean Corpuscular Hemoglobin 27.5 PG Mean Corpuscular Hemoglobin Concent 33.3 % Red Cell Distribution Width 14.2 % Platelet Count 211 TH/MM3 Mean Platelet Volume 8.7 FL Neutrophils (%) (Auto) 55.6 % Lymphocytes (%) (Auto) 18.6 % Monocytes (%) (Auto) 13.2 % Eosinophils (%) (Auto) 12.0 % Basophils (%) (Auto) 0.6 % Neutrophils # (Auto) 1.7 TH/MM3 Lymphocytes # (Auto) 0.6 TH/MM3 Monocytes # (Auto) 0.4 TH/MM3 Eosinophils # (Auto) 0.4 TH/MM3 Basophils # (Auto) 0.0 TH/MM3 CBC Comment DIFF FINAL Differential Comment D-Dimer Quantitative (PE/DVT) 0.22 MG/L FEU Urine Color YELLOW Urine Turbidity CLEAR Urine pH 6.5 Urine Specific [place] 1.026 Urine Protein NEG mg/dL Urine Glucose (UA) 1000 mg/dL Urine Ketones NEG mg/dL Urine Occult Blood NEG Urine Nitrite NEG Urine Bilirubin NEG Urine Urobilinogen LESS THAN 2.0 MG/DL Urine Leukocyte Esterase NEG Urine RBC LESS THAN 1 /hpf Urine WBC LESS THAN 1 /hpf Microscopic Urinalysis Comment CULT NOT INDICATED Blood Urea Nitrogen 11 MG/DL Creatinine 1.05 MG/DL Random Glucose 401 MG/DL Total Protein 8.3 GM/DL Albumin 3.0 GM/DL Calcium Level 8.4 MG/DL Magnesium Level 1.7 MG/DL Alkaline Phosphatase 97 U/L Aspartate Amino Transf (AST/SGOT) 16 U/L Alanine Aminotransferase (ALT/SGPT) 22 U/L Total Bilirubin 0.3 MG/DL Sodium Level 135 MEQ/L Potassium Level 3.8 MEQ/L Chloride Level 100 MEQ/L Carbon Dioxide Level 30.5 MEQ/L Anion Gap 5 MEQ/L Estimat Glomerular Filtration Rate 102 ML/MIN Troponin I LESS THAN 0.02 NG/ML B-Hydroxybutyrate 0.07 MMOL/L Blood Gas Puncture Site IV Blood Gas Patient Temperature 98.6 Venous Blood pH 7.36 Venous Blood Partial Pressure CO2 55 mmHg Venous Blood Partial Pressure O2 31 mmHg Venous Blood HCO3 30 mmol/L Venous Blood Oxygen Saturation 51 % Venous Blood Oxygen Content 7.6 Vol % Venous Blood Base Excess 5.1 mmol/L Oxygen Delivery Device ROOM AIR Differential Diagnosis Differential diagnosis includes pleurisy, pleural effusion, pneumonia, pericarditis, myocarditis, ACS, nephrolithiasis, pyelonephritis, DKA, hyperglycemia, dehydration, electrolyte abnormality. Narrative Course IV was established, labs are drawn and sent, and the patient was placed on cardiac telemetry monitoring and continuous pulse oximetry monitoring. EKG was ordered and interpreted. Chest x-ray was obtained. D-dimer was sent to lab. The patient was administered 2 L of IV fluids. Blood sugar was checked every hour 2. Chest x-rays unremarkable. VBG reveals normal pH and a bicarbonate 30 , doubt DKA. D-dimer was 0.22, therefore, no indication for CT pulmonary angiogram of left-sided pleuritic chest pain. Patient was administered 2 L of IV fluids, reevaluation of blood sugar, glucose was in the 300s. Therefore, patient was administered insulin 8 units subcutaneously. The patient's troponin is unremarkable. Workup is negative for the left sided pleuritic chest pain. The patient does have hyperglycemia but no evidence of DKA. The patient be discharged home on ibuprofen, is advised to follow-up with his primary physician. Diagnosis Primary Impression: Pleuritic chest pain Additional Impression: Hyperglycemia Patient Instructions: General Instructions Additional Instructions: Follow-up with your primary physician. Monitor blood sugars closely. Return if symptoms worsen or progress. Med/Other Pt SpecificInfo: Prescription(s) given Scripts Ibuprofen (Ibuprofen) 600 Mg Tab 600 MG PO Q6H Y for Pain/Inflammation, #20 TAB 0 Refills Prov: Gareth Mckeon MD 01/05/17 Disposition: 01 DISCHARGE HOME Condition: Stable Gareth Mckeon MD Jan 05, 2017 10:09
[2017-01-05 10:10] VITALS: O2SAT 99
[2017-01-05] MEDS ORDERED: SODIUM CHLORIDE 0.9% FLUSH 10 ML FLUSH IVF PRN (10:15)
[2017-01-05 10:31] LABS: BLOOD GAS VENOUS BASE EXCESS 5.1 mmol/L (-2-2); BLOOD GAS VENOUS HCO3 30 mmol/L (22-26); BLOOD GAS VENOUS O2 CONTENT 7.6 Vol % (9.0-17.0); BLOOD GAS VENOUS O2 HGB SAT 51 % (70-76); BLOOD GAS VENOUS PCO2 55 mmHg (44-48); BLOOD GAS VENOUS PO2 31 mmHg (35-40); BLOOD GAS VENOUS pH 7.36 (7.360-7.400); CRITICAL VALUE NO; DRAW SITE IV; OXYGEN DEVICE ROOM AIR; STAT YES; TEMP CORR TO 98.6
--- NOTE | 2017-01-05 10:31 | RADRPT ---
EXAM DATE/TIME: 01/05/2017 10:07 [facility] COMPARISON: CHEST SINGLE AP, November 03, 2016, 11:32. INDICATIONS : Left sided pleuritic chest pain MEDICAL HISTORY : Asthma SURGICAL HISTORY : None. ENCOUNTER: Initial ACUITY: 1 day PAIN SCORE: 10/10 LOCATION: Left chest FINDINGS: A single view of the chest demonstrates the lungs to be symmetrically aerated without evidence of mas s, infiltrate or effusion. The cardiomediastinal contours are unremarkable. Osseous structures are intact. CONCLUSION: No acute disease. Brett Adams MD on January 05, 2017 at 10:29 Board Certified Radiologist. This report was verified electronically.
[2017-01-05 10:39] LABS: AUTOMATED NEUTROPHIL # 1.7 TH/MM3 (1.8-7.7); BASOPHIL % 0.6 % (0.0-2.0); EOSINOPHIL # 0.4 TH/MM3 (0-0.4); HEMATOCRIT 32.6 % (39.0-51.0); HEMO FLAGS DIFF FINAL; LYMPH % 18.6 % (9.0-44.0); LYMPHOCYTE # 0.6 TH/MM3 (1.0-4.8); MEAN CELL VOLUME 82.7 FL (80.0-100.0); MEAN CORPUSCULAR HEMOGLOBIN 27.5 PG (27.0-34.0); MEAN CORPUSCULAR HGB CONC 33.3 % (32.0-36.0); MONO % 13.2 % (0.0-8.0); NEUT % 55.6 % (16.0-70.0); PLATELET COUNT 211 TH/MM3 (150-450); RED BLOOD COUNT 3.94 MIL/MM3 (4.50-5.90); RED CELL DISTRIBUTION WIDTH 14.2 % (11.6-17.2); WHITE BLOOD COUNT 3.1 TH/MM3 (4.0-11.0)
[2017-01-05 10:44] LABS: BLOOD, URINE NEG (NEG); GLUCOSE,URINE 1000 mg/dL (NEG); KETONE, URINE NEG (NEG); NITRITE,URINE NEG (NEG); PH, URINE 6.5 (5.0-8.5); URINE COLOR YELLOW (YELLW/STRAW)
[2017-01-05 10:45] LABS: COMMENT (UR) CULT NOT INDICATED; CULTURE IF INDICATED CULT NOT INDICATED
[2017-01-05 11:13] LABS: ALKALINE PHOSPHATASE 97 U/L (45-117); ALT (GPT) 22 U/L (12-78); ANION GAP 5 MEQ/L (5-15); AST (GOT) 16 U/L (15-37); BETA-HYDROXYBUTYRATE 0.07 MMOL/L (0.00-0.39); BICARBONATE 30.5 MEQ/L (21.0-32.0); BLOOD UREA NITROGEN 11 MG/DL (7-18); CHLORIDE 100 MEQ/L (98-107); GLOMERULAR FILTRATION RATE 102 ML/MIN (>89); MAGNESIUM 1.7 MG/DL (1.5-2.5); POTASSIUM 3.8 MEQ/L (3.5-5.1); SODIUM (NA) 135 MEQ/L (136-145); TOTAL BILIRUBIN ADULT 0.3 MG/DL (0.2-1.0)
[2017-01-05] MEDS ORDERED: INSULIN ASPART 1,000 UNITS/10 ML VIAL SQ ONE (11:15)
[2017-01-05] MEDS ORDERED: IBUP-232 PO (11:55)
--- NOTE | 2017-01-06 19:14 | EKG ---
Date Performed: 01/05/2017 Time Performed: 10:26:58 PTAGE: 26 years EKG: Sinus rhythm NONSPECIFIC ST & T-WAVE ABNORMALITY BORDERLINE ECG Since PREVIOUS TRACING , no significant change noted PREVIOUS TRACIN11/23/2016 19.44 DOCTOR: Maddy Luna Interpretating Date/Time 01/06/2017 19:12:46
== END 2017-01-05 12:15 | disposition home or self-care (01) ==
LOC: NEPC 09:45
DX: R07.81 Pleurodynia (principal); E11.65 Type 2 diabetes mellitus with hyperglycemia; B20 Human immunodeficiency virus [HIV] disease; Z79.4 Long term (current) use of insulin
CPT/HCPCS: 71010; 80053; 81001; 82010; 82805; 83735; 84484; 85025; 85379; 93005; 96360; 96372; 99285; J1815; J7030

== ENCOUNTER 2017-01-16 18:14 | Emergency (ER) | payer MEDICAID ==
[~2017-01-16] VITALS: Ht 188 cm; Wt 80.0 kg
[~2017-01-16 18:14] MED LIST changes: +IBUP-232 PO
[2017-01-16 18:16] VITALS: BP 150/93; PULSE 93; RESP 18; TEMP 97.8; O2SAT 99
[2017-01-16] MEDS ORDERED: CIPR-9 PO (18:28)
--- NOTE | 2017-01-16 18:29 | PD ---
HPI Chief Complaint: Injury Time Seen by Provider: 18:24 Travel History International Travel<30 days: No Contact w/Intl Traveler<30days: No Traveled to known affect area: No History of Present Illness HPI 26 yo M c/o pain left foot after stepping on a nail which went through his shoe and punctured the sole of the foot. injury occurred one hour prior. pain has been constant since. no additional complaint. PFSH Past Medical History Asthma: Yes Autoimmune Disease: Yes (HIV) Blood Disorders: Yes (HIV) Cancer: No Cardiovascular Problems: No COPD: No Diabetes: Yes Diminished Hearing: No Endocrine: Yes Gastrointestinal Disorders: Yes (GASTRITIS) Genitourinary: No Immune Disorder: Yes (HIV) Implanted Vascular Access Dvce: No Musculoskeletal: No Neurologic: No Psychiatric: No Reproductive: No Respiratory: Yes Sleep Apnea: No Thyroid Disease: No Past Surgical History Genitourinary Surgery: Yes (SCOPE) Pacemaker: No Other Surgery: Yes (ankle) Social History Alcohol Use: No Tobacco Use: No Substance Use: No Allergies-Medications (Allergen,Severity, Reaction): Coded Allergies: aspirin (Verified Allergy, Severe, SWELLING, 12/14/16) Reported Meds & Prescriptions Reported Meds & Active Scripts Active Ibuprofen 600 Mg Tab 600 Mg PO Q6H PRN Zofran Odt (Ondansetron Odt) 4 Mg Tab 4 Mg SL Q8HR PRN Ibuprofen 800 Mg Tab 800 Mg PO Q6HR PRN Zithromax Z-Arnoldo (Azithromycin) 250 Mg Dspk 250 Mg PO DIRECTED 500 MG (2 tabs) day 1, then 1 tab days 2-5. Ibuprofen 800 Mg Tab 800 Mg PO Q8H PRN Protonix (Pantoprazole Sodium) 20 Mg Tab 20 Mg PO DAILY Mapap (Acetaminophen) 325 Mg Tab 650 Mg PO Q4-6H PRN Reported [Hiv Med] PO DAILY Humulin R Inj (Insulin Human Regular) 1,000 Unit/10 Ml Vial 2-10 Units SQ TIDAC PRN IMPORTANT TO EAT A MEAL WITHIN 30-60 MINUTES OF DOSING Review of Systems General / Constitutional: No: Fever Musculoskeletal: Positive: Pain Skin: Positive Lesions Physical Exam Narrative GENERAL: 26 yo M, WNWD, NAD SKIN: Warm and dry. Minute puncture focus in region of 4/5 MTP on the sole of the foot. No discharge. no erythema. minimally tender. HEAD: Normocephalic. EYES: No scleral icterus. No injection or drainage. MUSCULOSKELETAL: No cyanosis, or edema. BACK: Nontender without obvious deformity. No CVA tenderness. Data Data Last Documented VS Vital Signs Date Time Temp Pulse Resp B/P (MAP) Pulse Ox O2 Delivery O2 Flow Rate FiO2 01/16/17 18:16 97.8 93 18 150/93 (112) 99 Room Air VS reviewed MDM Medical Decision Making Medical Screen Exam Complete: Yes Emergency Medical Condition: Yes Medical Record Reviewed: Yes Differential Diagnosis cellulitis, puncture wound, foreign body Narrative Course no evidence foreign body cipro script tetanus booster return precautions discussed Diagnosis Primary Impression: Puncture wound of foot Qualified Codes: S91.332A - Puncture wound without foreign body, left foot, initial encounter Med/Other Pt SpecificInfo: Prescription(s) given Scripts Ciprofloxacin (Cipro) 500 Mg Tab 500 MG PO BID for Infection for 7 Days, #14 TAB 0 Refills Prov: Rajat Franco MD 01/16/17 Disposition: DISCHARGE HOME Condition: Stable Rajat Franco MD Jan 16, 2017 18:29
[2017-01-16] MEDS ORDERED: TETANUS/DIPHTHERIA TOXOID ADULT 0.5 ML VIAL IM ONE (18:30)
== END 2017-01-16 18:48 | disposition home or self-care (01) ==
LOC: NEPK 18:14
DX: S91.332A Puncture wound without foreign body, left foot, initial encounter (principal); J45.909 Unspecified asthma, uncomplicated; E11.9 Type 2 diabetes mellitus without complications; K29.70 Gastritis, unspecified, without bleeding; W22.8XXA Striking against or struck by other objects, initial encounter; Z79.899 Other long term (current) drug therapy; Z21 Asymptomatic human immunodeficiency virus [HIV] infection status; Z23 Encounter for immunization; Z79.4 Long term (current) use of insulin
CPT/HCPCS: 90471; 90714

== ENCOUNTER 2017-02-03 19:06 | Emergency (ER) | payer MEDICAID ==
[~2017-02-03 19:06] MED LIST changes: +CIPR-9 PO
[2017-02-03 19:08] VITALS: BP 131/86; PULSE 78; RESP 16; TEMP 97.8; O2SAT 98
[2017-02-03 20:29] LABS: BLOOD, URINE NEG (NEG); COMMENT (UR) CULT NOT INDICATED; CULTURE IF INDICATED CULT NOT INDICATED; GLUCOSE,URINE 1000 mg/dL (NEG); KETONE, URINE NEG (NEG); MUCUS URINE FEW /lpf (OCC); NITRITE,URINE NEG (NEG); PH, URINE 5.5 (5.0-8.5); SQUAMOUS EPITHELIAL CELL URINE <1 /hpf (0-5); URINE COLOR YELLOW (YELLW/STRAW)
[2017-02-03 20:33] LABS: AUTOMATED NEUTROPHIL # 1.7 TH/MM3 (1.8-7.7); BASOPHIL % 0.8 % (0.0-2.0); EOSINOPHIL # 0.2 TH/MM3 (0-0.4); EOSINOPHIL % 8.7 % (0.0-4.0); HEMATOCRIT 35.7 % (39.0-51.0); HEMO FLAGS DIFF FINAL; LYMPH % 20.4 % (9.0-44.0); LYMPHOCYTE # 0.6 TH/MM3 (1.0-4.8); MEAN CELL VOLUME 81.6 FL (80.0-100.0); MEAN CORPUSCULAR HEMOGLOBIN 27.1 PG (27.0-34.0); MEAN CORPUSCULAR HGB CONC 33.2 % (32.0-36.0); MONO % 11.6 % (0.0-8.0); NEUT % 58.5 % (16.0-70.0); PLATELET COUNT 203 TH/MM3 (150-450); RED BLOOD COUNT 4.38 MIL/MM3 (4.50-5.90); RED CELL DISTRIBUTION WIDTH 13.7 % (11.6-17.2); WHITE BLOOD COUNT 2.9 TH/MM3 (4.0-11.0)
[2017-02-03 21:04] LABS: ALT (GPT) 17 U/L (12-78); ANION GAP 6 MEQ/L (5-15); AST (GOT) 14 U/L (15-37); BICARBONATE 31.5 MEQ/L (21.0-32.0); BLOOD UREA NITROGEN 16 MG/DL (7-18); CHLORIDE 98 MEQ/L (98-107); GLOMERULAR FILTRATION RATE 122 ML/MIN (>89); POTASSIUM 3.5 MEQ/L (3.5-5.1); SODIUM (NA) 135 MEQ/L (136-145)
[2017-02-03 21:07] LABS: ALKALINE PHOSPHATASE 110 U/L (45-117); TOTAL BILIRUBIN ADULT 0.4 MG/DL (0.2-1.0)
--- NOTE | 2017-02-03 21:11 | PD ---
HPI Chief Complaint: GI Complaint Time Seen by Provider: 21:03 Travel History International Travel<30 days: No Contact w/Intl Traveler<30days: No Traveled to known affect area: No History of Present Illness HPI C/O N/V/ along with nonspecific ABDOMINAL PAIN, ONSET 4 hRS AGO, described as burning, nonrad, no apparent aggravating/alleviating factors...pt also HAS HISTORY OF TYPE I DIABETES. PFSH Past Medical History Asthma: Yes Autoimmune Disease: Yes (HIV) Blood Disorders: Yes (HIV) Cancer: No Cardiovascular Problems: No COPD: No Diabetes: Yes Diminished Hearing: No Endocrine: Yes Gastrointestinal Disorders: Yes (GASTRITIS) Genitourinary: No Immune Disorder: Yes (HIV) Implanted Vascular Access Dvce: No Musculoskeletal: No Neurologic: No Psychiatric: No Reproductive: No Respiratory: Yes Sleep Apnea: No Thyroid Disease: No Past Surgical History Genitourinary Surgery: Yes (SCOPE) Pacemaker: No Other Surgery: Yes (ankle) Social History Alcohol Use: No Tobacco Use: No Substance Use: No Allergies-Medications (Allergen,Severity, Reaction): Coded Allergies: aspirin (Verified Allergy, Severe, SWELLING, 02/03/17) Reported Meds & Prescriptions Reported Meds & Active Scripts Active Ultram (Tramadol HCl) 50 Mg Tab 50 Mg PO Q6H PRN Zofran Odt (Ondansetron Odt) 4 Mg Tab 4 Mg SL Q6HR PRN Cipro (Ciprofloxacin HCl) 500 Mg Tab 500 Mg PO BID 7 Days Ibuprofen 600 Mg Tab 600 Mg PO Q6H PRN Zofran Odt (Ondansetron Odt) 4 Mg Tab 4 Mg SL Q8HR PRN Ibuprofen 800 Mg Tab 800 Mg PO Q6HR PRN Zithromax Z-Arnoldo (Azithromycin) 250 Mg Dspk 250 Mg PO DIRECTED 500 MG (2 tabs) day 1, then 1 tab days 2-5. Ibuprofen 800 Mg Tab 800 Mg PO Q8H PRN Protonix (Pantoprazole Sodium) 20 Mg Tab 20 Mg PO DAILY Mapap (Acetaminophen) 325 Mg Tab 650 Mg PO Q4-6H PRN Reported [Hiv Med] PO DAILY Humulin R Inj (Insulin Human Regular) 1,000 Unit/10 Ml Vial 2-10 Units SQ TIDAC PRN IMPORTANT TO EAT A MEAL WITHIN 30-60 MINUTES OF DOSING Review of Systems Except as stated in HPI: all other systems reviewed are Neg General / Constitutional: No: Fever Eyes: No: Visual changes HENT: No: Headaches Cardiovascular: No: Chest Pain or Discomfort Respiratory: No: Shortness of Breath Gastrointestinal: Positive: Nausea, Abdominal Pain Genitourinary: No: Dysuria Musculoskeletal: No: Pain Skin: No Rash Neurologic: No: Weakness Psychiatric: No: Depression Endocrine: No: Polydipsia Hematologic/Lymphatic: No: Easy Bruising Physical Exam Narrative GENERAL: SKIN: Warm and dry. HEAD: Atraumatic. Normocephalic. EYES: Pupils equal and round. No scleral icterus. No injection or drainage. ENT: No nasal bleeding or discharge. Mucous membranes pink and moist. NECK: Trachea midline. No JVD. CARDIOVASCULAR: Regular rate and rhythm. RESPIRATORY: No accessory muscle use. Clear to auscultation. Breath sounds equal bilaterally. GASTROINTESTINAL: Abdomen soft, non-tender, nondistended. MUSCULOSKELETAL: Extremities without clubbing, cyanosis, or edema. No obvious deformities. NEUROLOGICAL: Awake and alert. No obvious cranial nerve deficits. Motor grossly within normal limits. Five out of 5 muscle strength in the arms and legs. Normal speech. PSYCHIATRIC: Appropriate mood and affect; insight and judgment normal. Data Data Last Documented VS Vital Signs Date Time Temp Pulse Resp B/P (MAP) Pulse Ox O2 Delivery O2 Flow Rate FiO2 02/04/17 00:56 02/03/17 21:42 16 02/03/17 19:08 97.8 78 98 Room Air Orders Orders Complete Blood Count With Diff (02/03/17 19:21) Comprehensive Metabolic Panel (02/03/17 19:21) Lipase (02/03/17 19:21) Urinalysis - C+S If Indicated (02/03/17 19:21) Blood Gas Venous Ph (02/03/17 21:04) Electrocardiogram (02/03/17 21:11) B-Type Natriuretic Peptide (02/03/17 21:11) Ckmb (Isoenzyme) Profile (02/03/17 21:11) Troponin I (02/03/17 21:11) Sodium Chlor 0.9% 1000 Ml Inj (Ns 1000 M (02/03/17 21:15) Ondansetron Inj (Zofran Inj) (02/03/17 21:15) Morphine Inj (Morphine Inj) (02/03/17 21:15) Ed Discharge Order (02/04/17 00:15) Labs Laboratory Tests Test 02/03/17 20:14 02/03/17 20:20 02/03/17 22:10 02/03/17 22:15 Urine Color YELLOW Urine Turbidity CLEAR Urine pH 5.5 Urine Specific [place] 1.035 Urine Protein 100 mg/dL Urine Glucose (UA) 1000 mg/dL Urine Ketones NEG mg/dL Urine Occult Blood NEG Urine Nitrite NEG Urine Bilirubin NEG Urine Urobilinogen 2.0 MG/DL Urine Leukocyte Esterase NEG Urine RBC 1 /hpf Urine WBC 2 /hpf Urine Squamous Epithelial Cells <1 /hpf Urine Mucus FEW /lpf Microscopic Urinalysis Comment CULT NOT INDICATED White Blood Count 2.9 TH/MM3 Red Blood Count 4.38 MIL/MM3 Hemoglobin 11.9 GM/DL Hematocrit 35.7 % Mean Corpuscular Volume 81.6 FL Mean Corpuscular Hemoglobin 27.1 PG Mean Corpuscular Hemoglobin Concent 33.2 % Red Cell Distribution Width 13.7 % Platelet Count 203 TH/MM3 Mean Platelet Volume 8.4 FL Neutrophils (%) (Auto) 58.5 % Lymphocytes (%) (Auto) 20.4 % Monocytes (%) (Auto) 11.6 % Eosinophils (%) (Auto) 8.7 % Basophils (%) (Auto) 0.8 % Neutrophils # (Auto) 1.7 TH/MM3 Lymphocytes # (Auto) 0.6 TH/MM3 Monocytes # (Auto) 0.3 TH/MM3 Eosinophils # (Auto) 0.2 TH/MM3 Basophils # (Auto) 0.0 TH/MM3 CBC Comment DIFF FINAL Differential Comment Blood Urea Nitrogen 16 MG/DL Creatinine 0.90 MG/DL Random Glucose 228 MG/DL Total Protein 10.2 GM/DL Albumin 3.6 GM/DL Calcium Level 8.6 MG/DL Alkaline Phosphatase 110 U/L Aspartate Amino Transf (AST/SGOT) 14 U/L Alanine Aminotransferase (ALT/SGPT) 17 U/L Total Bilirubin 0.4 MG/DL Sodium Level 135 MEQ/L Potassium Level 3.5 MEQ/L Chloride Level 98 MEQ/L Carbon Dioxide Level 31.5 MEQ/L Anion Gap 6 MEQ/L Estimat Glomerular Filtration Rate 122 ML/MIN Lipase 208 U/L Venous Blood pH 7.35 Total Creatine Kinase 99 U/L Troponin I LESS THAN 0.02 NG/ML B-Type Natriuretic Peptide 8 PG/ML MDM Medical Decision Making Medical Screen Exam Complete: Yes Emergency Medical Condition: Yes Medical Record Reviewed: Yes Differential Diagnosis pancreatitis v dyspepsia v dka Narrative Course no e/o dka on ph, nor any ketonuria, also nl lft''s and lipase...patient is clinically stable at time of disposition Diagnosis Primary Impression: Dyspepsia Referrals: Gentry Addison MD for further outpatient evaluation of your symptoms Patient Instructions: Diet for Stomach Ulcers and Gastritis (GEN), General Instructions Scripts Tramadol (Ultram) 50 Mg Tab 50 MG PO Q6H Y for PAIN, #10 TAB 0 Refills Prov: Nima Stern MD 02/04/17 Ondansetron Odt (Zofran Odt) 4 Mg Tab 4 MG SL Q6HR Y for Nausea/Vomiting, #10 TAB 0 Refills Prov: Nima Stern MD 02/04/17 Disposition: 01 DISCHARGE HOME Condition: Stable Nima Stern MD Feb 03, 2017 21:11
[2017-02-03] MEDS ORDERED: SODIUM CHLOR 0.9% 1000 ML INJ 1,000 ML IV ONE (21:15)
[2017-02-03] MEDS ORDERED: MORPHINE SULFATE 4 MG/ML INJ IV PUSH ONE (21:15)
[2017-02-03] MEDS ORDERED: ONDANSETRON HCL 4 MG/2 ML VIAL IV PUSH ONE (21:15)
[2017-02-03 21:42] VITALS: RESP 16
[2017-02-03 22:57] LABS: CREATINE KINASE 99 U/L (39-308)
[2017-02-04] MEDS ORDERED: TRAM50 PO (00:12)
[2017-02-04] MEDS ORDERED: ZOFR4TAB3 SL (00:12)
--- NOTE | 2017-02-04 13:40 | EKG ---
Date Performed: 02/03/2017 Time Performed: 21:23:14 PTAGE: 26 years EKG: SINUS ARRHYTHMIA ST ELEVATION, SUGGESTIVE OF EARLY REPOLARIZATION BORDERLINE ECG Compared t o prior tracing no significant change PREVIOUS TRACING : 01/19/2017 15.24 DOCTOR: Jeramie Warner Interpretating Date/Time 02/04/2017 13:39:03
== END 2017-02-04 00:53 | disposition home or self-care (01) ==
LOC: NEPD 19:06
DX: R10.13 Epigastric pain (principal); B20 Human immunodeficiency virus [HIV] disease; E10.9 Type 1 diabetes mellitus without complications; Z79.4 Long term (current) use of insulin
CPT/HCPCS: 80053; 81001; 82550; 82800; 83690; 83880; 84484; 85025; 93005; 96374; 96375; 99284; J2270; J2405; J7030

== ENCOUNTER 2017-05-18 15:36 | Emergency (ER) | payer MEDICAID ==
[~2017-05-18 15:36] MED LIST changes: +TRAM50 PO
[2017-05-18 15:42] VITALS: BP 116/62; PULSE 88; RESP 18; TEMP 97.3; O2SAT 99
[2017-05-18 16:42] VITALS: BP 109/66; PULSE 85; RESP 18; O2SAT 99
[2017-05-18] MEDS ORDERED: SODIUM CHLOR 0.9% 1000 ML INJ 1,000 ML IV ONE ×2 (16:45→20:30)
[2017-05-18 16:49] VITALS: O2SAT 100
--- NOTE | 2017-05-18 16:49 | PD ---
HPI Chief Complaint: Chest Pain Time Seen by Provider: 16:45 Travel History International Travel<30 days: No Contact w/Intl Traveler<30days: No Traveled to known affect area: No History of Present Illness HPI 26-year-old male patient with history of HIV, insulin-dependent diabetes, presents to the ER today for several days history of chest pains, coughing, back pains, headaches, not feeling well. He denies fevers, vomiting, or other issues. He does not know of any sick contacts. He states that his current chest pain is a 10 out of 10. Modifying Factors: None Associated Signs & Symptoms: Coughing, back pains, headaches, chest discomfort Risk Factors: HIV, diabetic PFSH Past Medical History Asthma: Yes Autoimmune Disease: Yes (HIV) Blood Disorders: Yes (HIV) Cancer: No Cardiovascular Problems: No COPD: No Diabetes: Yes Diminished Hearing: No Endocrine: Yes Gastrointestinal Disorders: Yes (GASTRITIS) Genitourinary: No Immune Disorder: Yes (HIV) Implanted Vascular Access Dvce: No Musculoskeletal: No Neurologic: No Psychiatric: No Reproductive: No Respiratory: Yes Sleep Apnea: No Thyroid Disease: No ?: Not Past Surgical History Genitourinary Surgery: Yes (SCOPE) Pacemaker: No Other Surgery: Yes (ankle) Social History Alcohol Use: No Tobacco Use: No Substance Use: No Allergies-Medications (Allergen,Severity, Reaction): Coded Allergies: aspirin (Verified Allergy, Severe, SWELLING, 05/18/17) Reported Meds & Prescriptions Reported Meds & Active Scripts Active Ultram (Tramadol HCl) 50 Mg Tab 50 Mg PO Q6H PRN Zofran Odt (Ondansetron Odt) 4 Mg Tab 4 Mg SL Q6HR PRN Cipro (Ciprofloxacin HCl) 500 Mg Tab 500 Mg PO BID 7 Days Ibuprofen 600 Mg Tab 600 Mg PO Q6H PRN Zofran Odt (Ondansetron Odt) 4 Mg Tab 4 Mg SL Q8HR PRN Ibuprofen 800 Mg Tab 800 Mg PO Q6HR PRN Zithromax Z-Arnoldo (Azithromycin) 250 Mg Dspk 250 Mg PO DIRECTED 500 MG (2 tabs) day 1, then 1 tab days 2-5. Ibuprofen 800 Mg Tab 800 Mg PO Q8H PRN Protonix (Pantoprazole Sodium) 20 Mg Tab 20 Mg PO DAILY Mapap (Acetaminophen) 325 Mg Tab 650 Mg PO Q4-6H PRN Reported [Hiv Med] PO DAILY Humulin R Inj (Insulin Human Regular) 1,000 Unit/10 Ml Vial 2-10 Units SQ TIDAC PRN IMPORTANT TO EAT A MEAL WITHIN 30-60 MINUTES OF DOSING Review of Systems Except as stated in HPI: all other systems reviewed are Neg Physical Exam Narrative GENERAL: Thin well-developed young -[place] male patient currently and mild distress. Awake and oriented 3. SKIN: Focused skin assessment warm/dry. HEAD: Atraumatic. Normocephalic. EYES: Pupils equal and round. No scleral icterus. No injection or drainage. ENT: No nasal bleeding or discharge. Mucous membranes pink and moist. NECK: Trachea midline. No JVD. Supple. CARDIOVASCULAR: Regular rate and rhythm. No murmur appreciated. RESPIRATORY: No accessory muscle use. Clear to auscultation. Breath sounds equal bilaterally. GASTROINTESTINAL: Abdomen soft, non-tender, nondistended. Hepatic and splenic margins not palpable. MUSCULOSKELETAL: No obvious deformities. No clubbing. No cyanosis. No edema. NEUROLOGICAL: Awake and alert. No obvious cranial nerve deficits. Motor grossly within normal limits. Normal speech. PSYCHIATRIC: Appropriate mood and affect; insight and judgment normal. Data Data Last Documented VS Vital Signs Date Time Temp Pulse Resp B/P (MAP) Pulse Ox O2 Delivery O2 Flow Rate FiO2 05/18/17 16:49 100 Room Air 05/18/17 16:49 05/18/17 16:42 84 05/18/17 16:42 18 05/18/17 15:42 97.3 Orders Orders Sepsis Workup Initiated (05/18/17 ) Electrocardiogram (05/18/17 16:45) Complete Blood Count With Diff (05/18/17 16:45) Comprehensive Metabolic Panel (05/18/17 16:45) Prothrombin Time / Inr (Pt) (05/18/17 16:45) Act Partial Throm Time (Ptt) (05/18/17 16:45) Lactic Acid Sepsis Protocol (05/18/17 16:45) Magnesium (Mg) (05/18/17 16:45) Ckmb (Isoenzyme) Profile (05/18/17 16:45) Troponin I (05/18/17 16:45) Urinalysis - C+S If Indicated (05/18/17 16:45) Influenzae A/B Antigen (05/18/17 16:45) Blood Culture (05/18/17 16:45) Chest, Single Ap (05/18/17 16:45) Blood Glucose (05/18/17 16:45) Ecg Monitoring (05/18/17 16:45) Iv Access Insert/Monitor (05/18/17 16:45) Oximetry (05/18/17 16:45) Oxygen Administration (05/18/17 16:45) Ct Brain W/O Iv Contrast(Rout) (05/18/17 16:45) Sodium Chlor 0.9% 1000 Ml Inj (Ns 1000 M (05/18/17 16:45) CKMB (05/18/17 16:55) CKMB% (05/18/17 16:55) Insulin Human Regular Inj (Novolin R Inj (05/18/17 17:45) Ct Pulmonary Angiogram (05/18/17 18:12) Labs Laboratory Tests Test 05/18/17 16:55 White Blood Count 3.1 TH/MM3 Red Blood Count 4.36 MIL/MM3 Hemoglobin 11.8 GM/DL Hematocrit 34.8 % Mean Corpuscular Volume 79.9 FL Mean Corpuscular Hemoglobin 27.1 PG Mean Corpuscular Hemoglobin Concent 33.9 % Red Cell Distribution Width 12.9 % Platelet Count 217 TH/MM3 Mean Platelet Volume 8.8 FL Neutrophils (%) (Auto) 53.0 % Lymphocytes (%) (Auto) 21.6 % Monocytes (%) (Auto) 14.5 % Eosinophils (%) (Auto) 10.1 % Basophils (%) (Auto) 0.8 % Neutrophils # (Auto) 1.6 TH/MM3 Lymphocytes # (Auto) 0.7 TH/MM3 Monocytes # (Auto) 0.4 TH/MM3 Eosinophils # (Auto) 0.3 TH/MM3 Basophils # (Auto) 0.0 TH/MM3 CBC Comment DIFF FINAL Differential Comment Prothrombin Time 9.9 SEC Prothromb Time International Ratio 1.0 RATIO Activated Partial Thromboplast Time 26.8 SEC Urine Color YELLOW Urine Turbidity CLEAR Urine pH 5.5 Urine Specific [place] 1.041 Urine Protein NEG mg/dL Urine Glucose (UA) 1000 mg/dL Urine Ketones NEG mg/dL Urine Occult Blood NEG Urine Nitrite NEG Urine Bilirubin NEG Urine Urobilinogen LESS THAN 2.0 MG/DL Urine Leukocyte Esterase MOD Urine RBC 1 /hpf Urine WBC 1 /hpf Urine Squamous Epithelial Cells 1 /hpf Urine Bacteria RARE /hpf Urine Hyaline Casts 1 /lpf Microscopic Urinalysis Comment CATH-CULT NOT IND Blood Urea Nitrogen 13 MG/DL Creatinine 1.12 MG/DL Random Glucose 348 MG/DL Total Protein 8.9 GM/DL Albumin 3.0 GM/DL Calcium Level 8.1 MG/DL Magnesium Level 1.7 MG/DL Alkaline Phosphatase 108 U/L Aspartate Amino Transf (AST/SGOT) 18 U/L Alanine Aminotransferase (ALT/SGPT) 17 U/L Total Bilirubin 0.3 MG/DL Sodium Level 136 MEQ/L Potassium Level 3.9 MEQ/L Chloride Level 99 MEQ/L Carbon Dioxide Level 27.8 MEQ/L Anion Gap 9 MEQ/L Estimat Glomerular Filtration Rate 95 ML/MIN Lactic Acid Level 2.5 mmol/L Total Creatine Kinase 105 U/L Creatine Kinase MB 1.0 NG/ML Troponin I LESS THAN 0.02 NG/ML MDM Medical Decision Making Medical Screen Exam Complete: Yes Emergency Medical Condition: Yes Medical Record Reviewed: Yes Interpretation(s) EKG shows normal sinus rhythm with no signs of acute ST elevations or depressions. Laboratory Tests Test 05/18/17 16:55 White Blood Count 3.1 TH/MM3 (4.0-11.0) Red Blood Count 4.36 MIL/MM3 (4.50-5.90) Hemoglobin 11.8 GM/DL (13.0-17.0) Hematocrit 34.8 % (39.0-51.0) Mean Corpuscular Volume 79.9 FL (80.0-100.0) Monocytes (%) (Auto) 14.5 % (0.0-8.0) Eosinophils (%) (Auto) 10.1 % (0.0-4.0) Neutrophils # (Auto) 1.6 TH/MM3 (1.8-7.7) Lymphocytes # (Auto) 0.7 TH/MM3 (1.0-4.8) Urine Specific [place] 1.041 (1.002-1.035) Urine Glucose (UA) 1000 mg/dL (NEG) Urine Leukocyte Esterase MOD (NEG) Urine Bacteria RARE /hpf (NONE) Random Glucose 348 MG/DL (74-106) Total Protein 8.9 GM/DL (6.4-8.2) Albumin 3.0 GM/DL (3.4-5.0) Calcium Level 8.1 MG/DL (8.5-10.1) Lactic Acid Level 2.5 mmol/L (0.4-2.0) Troponin I LESS THAN 0.02 NG/ML Differential Diagnosis Influenza versus viral syndrome versus dehydration versus DKA versus metabolic issues versus sepsis versus pneumonia Narrative Course Chest x-ray did not show any signs of acute pulmonary processes. CT of the brain was negative for any signs of acute intracranial processes. Patient has no significant meningeal signs. Vital signs are stable in the ER. Lab work shows significant lactate elevation and glucose elevation, concerning for dehydration. IV fluids were given. Insulin was also given in the ER. Considering that patient also states he is having some chest discomfort with deep breaths, PE study was also ordered to rule out PE. If negative, planning to release with treatment for bronchitis. Physician Communication Physician Communication Case has been discussed with Dr. Lofton awaiting CTA for disposition at 7 PM. Diagnosis Primary Impression: Atypical chest pain Condition: Stable Ramsey Deng MD May 18, 2017 16:49
--- NOTE | 2017-05-18 16:59 | RADRPT ---
EXAM DATE/TIME: 05/18/2017 16:50 [facility] COMPARISON: CHEST SINGLE AP, January 05, 2017, 10:07. INDICATIONS : Cough MEDICAL HISTORY : Hypertension. Asthma SURGICAL HISTORY : None. ENCOUNTER: Initial ACUITY: 1 week PAIN SCORE: 0/10 LOCATION: Bilateral chest FINDINGS: A single view of the chest demonstrates the lungs to be symmetrically aerated without evidence of mas s, infiltrate or effusion. The cardiomediastinal contours are unremarkable. Osseous structures are intact. CONCLUSION: No acute disease. Dank Iyer MD on May 18, 2017 at 16:55 Board Certified Radiologist. This report was verified electronically.
[2017-05-18 17:19] LABS: AUTOMATED NEUTROPHIL # 1.6 TH/MM3 (1.8-7.7); BASOPHIL % 0.8 % (0.0-2.0); EOSINOPHIL # 0.3 TH/MM3 (0-0.4); EOSINOPHIL % 10.1 % (0.0-4.0); HEMATOCRIT 34.8 % (39.0-51.0); HEMOGLOBIN 11.8 GM/DL (13.0-17.0); LYMPH % 21.6 % (9.0-44.0); LYMPHOCYTE # 0.7 TH/MM3 (1.0-4.8); MEAN CELL VOLUME 79.9 FL (80.0-100.0); MEAN CORPUSCULAR HEMOGLOBIN 27.1 PG (27.0-34.0); MEAN CORPUSCULAR HGB CONC 33.9 % (32.0-36.0); MEAN PLATELET VOLUME 8.8 FL (7.0-11.0); MONO % 14.5 % (0.0-8.0); MONOCYTE # 0.4 TH/MM3 (0-0.9); PLATELET COUNT 217 TH/MM3 (150-450); RED BLOOD COUNT 4.36 MIL/MM3 (4.50-5.90); RED CELL DISTRIBUTION WIDTH 12.9 % (11.6-17.2); WHITE BLOOD COUNT 3.1 TH/MM3 (4.0-11.0)
[2017-05-18 17:20] LABS: BACTERIA, URINE RARE /hpf; BILIRUBIN, URINE NEG (NEG); BLOOD, URINE NEG (NEG); GLUCOSE,URINE 1000 mg/dL (NEG); HYALINE CAST, URINE 1 /lpf (RARE); KETONE, URINE NEG (NEG); NITRITE,URINE NEG (NEG); PH, URINE 5.5 (5.0-8.5); SQUAMOUS EPITHELIAL CELL URINE 1 /hpf (0-5); URINE COLOR YELLOW (YELLW/STRAW); URINE LEUKOCYTE ESTERASE MOD (NEG)
[2017-05-18 17:26] LABS: PROTHROMBIN TIME - PATIENT 9.9 SEC (9.8-11.6)
[2017-05-18 17:33] LABS: AST (GOT) 18 U/L (15-37); BICARBONATE 27.8 MEQ/L (21.0-32.0); BLOOD UREA NITROGEN 13 MG/DL (7-18); CALCIUM 8.1 MG/DL (8.5-10.1); CHLORIDE 99 MEQ/L (98-107); CREATININE 1.12 MG/DL (0.60-1.30); GLOMERULAR FILTRATION RATE 95 ML/MIN (>89); GLUCOSE,RANDOM 348 MG/DL (74-106); MAGNESIUM 1.7 MG/DL (1.5-2.5); SODIUM (NA) 136 MEQ/L (136-145)
[2017-05-18 17:34] LABS: ALT (GPT) 17 U/L (12-78); LACTIC ACID SEPSIS PROTOCOL 2.5 mmol/L (0.4-2.0)
[2017-05-18 17:38] LABS: ALKALINE PHOSPHATASE 108 U/L (45-117); TOTAL BILIRUBIN ADULT 0.3 MG/DL (0.2-1.0); TOTAL PROTEIN 8.9 GM/DL (6.4-8.2); TROPONIN I LESS THAN 0.02 NG/ML (0.02-0.05)
[2017-05-18] MEDS ORDERED: INSULIN HUMAN REGULAR 1,000 UNITS/10 ML VIAL IV PUSH ONE (17:45)
--- NOTE | 2017-05-18 18:01 | RADRPT ---
EXAM DATE/TIME: 05/18/2017 17:51 [facility] COMPARISON: CT BRAIN W/O CONTRAST, September 05, 2016, 18:31. INDICATIONS : Headache. RADIATION DOSE: 56.35 CTDIvol (mGy) MEDICAL HISTORY : HIV. Diabetes mellitus type 2. Gastritis SURGICAL HISTORY : None. ENCOUNTER: Initial ACUITY: 1 day PAIN SCALE: 6/10 LOCATION: cranial TECHNIQUE: Multiple contiguous axial images were obtained of the head. Using automated exposure control and adj ustment of the mA and/or kV according to patient size, radiation dose was kept as low as reasonably a chievable to obtain optimal diagnostic quality images. DICOM format image data is available electro nically for review and comparison. FINDINGS: CEREBRUM: The ventricles are normal for age. No evidence of midline shift, mass lesion, hemorrhage or acute in farction. No extra-axial fluid collections are seen. POSTERIOR FOSSA: The cerebellum and brainstem are intact. The 4th ventricle is midline. The cerebellopontine angle i s unremarkable. EXTRACRANIAL: The visualized portion of the orbits is intact. There is total opacification of the frontal and sphen oid sinuses and near total opacification of the maxillary and ethmoid sinuses. SKULL: The calvaria is intact. No evidence of skull fracture. CONCLUSION: 1. No intracranial abnormality seen. 2. Extensive sinus disease. Dank Iyer MD on May 18, 2017 at 17:56 Board Certified Radiologist. This report was verified electronically.
--- NOTE | 2017-05-18 19:16 | PD ---
Physical Exam Date Seen by Provider: May 18, 2017 Time Seen by Provider: 19:00 Narrative The patient was signed out to me by Dr. Ralph at change of shift. Please see her H& P for further details. We are awaiting CTA to rule out pulmonary embolus. Patient presented with complaints of body aches cough and pleuritic chest pain. Patient has a history of HIV. We are unsure what his last CD4 count was. Data Data Last Documented VS Vital Signs Date Time Temp Pulse Resp B/P (MAP) Pulse Ox O2 Delivery O2 Flow Rate FiO2 05/18/17 16:49 100 Room Air 05/18/17 16:49 05/18/17 16:42 84 05/18/17 16:42 18 05/18/17 15:42 97.3 Orders Orders Sepsis Workup Initiated (05/18/17 ) Electrocardiogram (05/18/17 16:45) Complete Blood Count With Diff (05/18/17 16:45) Comprehensive Metabolic Panel (05/18/17 16:45) Prothrombin Time / Inr (Pt) (05/18/17 16:45) Act Partial Throm Time (Ptt) (05/18/17 16:45) Lactic Acid Sepsis Protocol (05/18/17 16:45) Magnesium (Mg) (05/18/17 16:45) Ckmb (Isoenzyme) Profile (05/18/17 16:45) Troponin I (05/18/17 16:45) Urinalysis - C+S If Indicated (05/18/17 16:45) Influenzae A/B Antigen (05/18/17 16:45) Blood Culture (05/18/17 16:45) Chest, Single Ap (05/18/17 16:45) Blood Glucose (05/18/17 16:45) Ecg Monitoring (05/18/17 16:45) Iv Access Insert/Monitor (05/18/17 16:45) Oximetry (05/18/17 16:45) Oxygen Administration (05/18/17 16:45) Ct Brain W/O Iv Contrast(Rout) (05/18/17 16:45) Sodium Chlor 0.9% 1000 Ml Inj (Ns 1000 M (05/18/17 16:45) CKMB (05/18/17 16:55) CKMB% (05/18/17 16:55) Insulin Human Regular Inj (Novolin R Inj (05/18/17 17:45) Ct Pulmonary Angiogram (05/18/17 18:12) Iohexol 350 Inj (Omnipaque 350 Inj) (05/18/17 19:56) Sodium Chlor 0.9% 1000 Ml Inj (Ns 1000 M (05/18/17 20:30) Sulfamet-Trimeth Ds 800-160 Mg (Bactrim (05/18/17 20:30) Labs Laboratory Tests Test 05/18/17 16:55 White Blood Count 3.1 TH/MM3 Red Blood Count 4.36 MIL/MM3 Hemoglobin 11.8 GM/DL Hematocrit 34.8 % Mean Corpuscular Volume 79.9 FL Mean Corpuscular Hemoglobin 27.1 PG Mean Corpuscular Hemoglobin Concent 33.9 % Red Cell Distribution Width 12.9 % Platelet Count 217 TH/MM3 Mean Platelet Volume 8.8 FL Neutrophils (%) (Auto) 53.0 % Lymphocytes (%) (Auto) 21.6 % Monocytes (%) (Auto) 14.5 % Eosinophils (%) (Auto) 10.1 % Basophils (%) (Auto) 0.8 % Neutrophils # (Auto) 1.6 TH/MM3 Lymphocytes # (Auto) 0.7 TH/MM3 Monocytes # (Auto) 0.4 TH/MM3 Eosinophils # (Auto) 0.3 TH/MM3 Basophils # (Auto) 0.0 TH/MM3 CBC Comment DIFF FINAL Differential Comment Prothrombin Time 9.9 SEC Prothromb Time International Ratio 1.0 RATIO Activated Partial Thromboplast Time 26.8 SEC Urine Color YELLOW Urine Turbidity CLEAR Urine pH 5.5 Urine Specific [place] 1.041 Urine Protein NEG mg/dL Urine Glucose (UA) 1000 mg/dL Urine Ketones NEG mg/dL Urine Occult Blood NEG Urine Nitrite NEG Urine Bilirubin NEG Urine Urobilinogen LESS THAN 2.0 MG/DL Urine Leukocyte Esterase MOD Urine RBC 1 /hpf Urine WBC 1 /hpf Urine Squamous Epithelial Cells 1 /hpf Urine Bacteria RARE /hpf Urine Hyaline Casts 1 /lpf Microscopic Urinalysis Comment CATH-CULT NOT IND Blood Urea Nitrogen 13 MG/DL Creatinine 1.12 MG/DL Random Glucose 348 MG/DL Total Protein 8.9 GM/DL Albumin 3.0 GM/DL Calcium Level 8.1 MG/DL Magnesium Level 1.7 MG/DL Alkaline Phosphatase 108 U/L Aspartate Amino Transf (AST/SGOT) 18 U/L Alanine Aminotransferase (ALT/SGPT) 17 U/L Total Bilirubin 0.3 MG/DL Sodium Level 136 MEQ/L Potassium Level 3.9 MEQ/L Chloride Level 99 MEQ/L Carbon Dioxide Level 27.8 MEQ/L Anion Gap 9 MEQ/L Estimat Glomerular Filtration Rate 95 ML/MIN Lactic Acid Level 2.5 mmol/L Total Creatine Kinase 105 U/L Creatine Kinase MB 1.0 NG/ML Troponin I LESS THAN 0.02 NG/ML [facility] Medical Record Reviewed: Yes Supervised Visit with GEMMA: No Differential Diagnosis Pneumonia versus pulmonary embolus versus viral syndrome Narrative Course 46-year-old male with history of HIV disease, diabetes mellitus, presents here with complaints of cough congestion and body aches. Patient was seen and evaluated by Dr. Ralph and signed out to me at change of shift. He had a blood sugar over 300 and was given IV fluids and insulin. He has been given a second liter of IV fluid by this physician. He states he feels much improved. He will be discharged with a prescription for Bactrim DS 10 days. He will be given information for Dr. Baker as he now lives here on the [facility] side [facility]. He is instructed to return to be starts feeling worse, fevers chills, or any other reason that concerns him. Diagnosis Primary Impression: Viral syndrome Additional Impressions: Atypical chest pain Hyperglycemia Referrals: Dr. Rajat Baker Additional Instruction: Follow-up with outpatient infectious disease doctor. Return as needed. Med/Other Pt SpecificInfo: Prescription(s) given Scripts Sulfamethoxazole-Trimethoprim (Bactrim DS) 800-160 Mg Tab 1 TAB PO BID for Infection, #20 TAB 0 Refills Prov: Dave Lofton MD 05/18/17 Disposition: DISCHARGE HOME Condition: Stable Dave Lofton MD May 18, 2017 19:16
[2017-05-18] MEDS ORDERED: IOHEXOL 350 MG/ML 10 ML VIAL (for RAD DIAG) IVCONTRAST ONE (19:56)
--- NOTE | 2017-05-18 20:05 | RADRPT ---
EXAM DATE/TIME: 05/18/2017 19:55 [facility] COMPARISON: No previous studies available for comparison. INDICATIONS : Shortness of breath; rule out pulmonry embolus. IV CONTRAST: 80 cc Omnipaque 350 (iohexol) IV RADIATION DOSE: 10.81 CTDIvol (mGy) MEDICAL HISTORY : HIV. Gastritis and asthma SURGICAL HISTORY : None. ENCOUNTER: Initial ACUITY: 1 day PAIN SCALE: 3/10 LOCATION: chest TECHNIQUE: Volumetric scanning of the chest was performed using a pulmonary embolism protocol MIP images were re constructed. Using automated exposure control and adjustment of the mA and/or kV according to patien t size, radiation dose was kept as low as reasonably achievable to obtain optimal diagnostic quality images. DICOM format image data is available electronically for review and comparison. Follow-up recommendations for detected pulmonary nodules are based at a minimum on nodule size and pa tient risk factors according to Fleischner Society Guidelines. FINDINGS: PULMONARY ARTERIES: Were LUNGS: There is no consolidation or pneumothorax . No concerning pulmonary nodule is visualized. PLEURAE: There is no pleural thickening or pleural effusion. MEDIASTINUM: There is good visualization of the great vessels of the middle mediastinum. Mild prominence of the a scending aorta No evidence of mediastinal or hilar adenopathy/mass. MUSCULOSKELETAL: Within normal limits for patient age. MISCELLANEOUS: The visualized upper abdominal organs demonstrate no acute abnormality. CONCLUSION: Negative for PE, mild prominence of the ascending aorta measuring 2.9 cm Frandy Moore MD FACR on May 18, 2017 at 20:01 Board Certified Radiologist. This report was verified electronically.
[2017-05-18] MEDS ORDERED: SULFAMETHOXAZOLE-TRIMETHOPRIM DS 800-160 MG TAB PO ONE (20:30)
[2017-05-18] MEDS ORDERED: BACT800T5 PO (20:51)
--- NOTE | 2017-05-20 00:27 | EKG ---
Date Performed: 05/18/2017 Time Performed: 17:02:37 PTAGE: 26 years EKG: Sinus rhythm NONSPECIFIC T-WAVE ABNORMALITY BORDERLINE ECG PREVIOUS TRACING : 02/03/2017 21.23 DOCTOR: Jaswinder Johnson Interpretating Date/Time 05/20/2017 00:13:48
== END 2017-05-18 22:10 | disposition home or self-care (01) ==
LOC: NEPE 15:36
DX: B34.9 Viral infection, unspecified (principal); R07.89 Other chest pain; E11.65 Type 2 diabetes mellitus with hyperglycemia; B20 Human immunodeficiency virus [HIV] disease; J45.909 Unspecified asthma, uncomplicated; R94.31 Abnormal electrocardiogram [ECG] [EKG]; Z87.19 Personal history of other diseases of the digestive system; Z79.899 Other long term (current) drug therapy; Z79.4 Long term (current) use of insulin
CPT/HCPCS: 70450; 71045; 71275; 80053; 81001; 82550; 82552; 83605; 83735; 84484; 85025; 85610; 85730; 87040; 87804; 93005; 96361; 96374; 99285; J1815; J7030; Q9967

== ENCOUNTER 2017-06-08 23:12 | Emergency (ER) | payer MEDICAID ==
[~2017-06-08] VITALS: Ht 188 cm; Wt 82.0 kg
[~2017-06-08 23:12] MED LIST changes: +BACT800T5 PO
[2017-06-08] MEDS ORDERED: IOHEXOL 350 MG/ML 10 ML VIAL (for RAD DIAG) IVCONTRAST ONE (23:13)
[2017-06-08 23:24] VITALS: BP 124/69; PULSE 75; RESP 18; TEMP 97.2; O2SAT 100
--- NOTE | 2017-06-09 00:03 | RADRPT ---
EXAM DATE/TIME: 06/08/2017 23:44 [facility] COMPARISON: CHEST SINGLE AP, May 18, 2017, 16:50. INDICATIONS : Short of breath. MEDICAL HISTORY : Hypertension. Asthma SURGICAL HISTORY : None. ENCOUNTER: Initial ACUITY: 1 day PAIN SCORE: 0/10 LOCATION: Bilateral chest FINDINGS: A single view of the chest demonstrates the lungs to be symmetrically aerated without evidence of mas s, infiltrate or effusion. The cardiomediastinal contours are unremarkable. Osseous structures are intact. CONCLUSION: No acute cardiopulmonary disease. Dank Zabala MD on June 09, 2017 at 0:01 Board Certified Radiologist. This report was verified electronically.
[2017-06-09 00:13] VITALS: RESP 20
[2017-06-09] MEDS ORDERED: SODIUM CHLOR 0.9% 1000 ML INJ 1,000 ML IV ONE (00:15)
[2017-06-09] MEDS ORDERED: PANTOPRAZOLE INJ 80 MG in SODIUM CHLORIDE 0.9% INJ 35 ML IV ONE (00:15)
[2017-06-09] MEDS ORDERED: ONDANSETRON HCL 4 MG/2 ML VIAL IV ONE (00:15)
[2017-06-09 00:18] LABS: BASOPHIL # 0.3 TH/MM3 (0-0.2); EOSINOPHIL # 0.3 TH/MM3 (0-0.4); EOSINOPHIL % 8.2 % (0.0-4.0); HEMATOCRIT 34.3 % (39.0-51.0); HEMOGLOBIN 11.9 GM/DL (13.0-17.0); LYMPH % 15.4 % (9.0-44.0); LYMPHOCYTE # 0.5 TH/MM3 (1.0-4.8); MEAN CELL VOLUME 78.6 FL (80.0-100.0); MEAN CORPUSCULAR HEMOGLOBIN 27.2 PG (27.0-34.0); MEAN CORPUSCULAR HGB CONC 34.6 % (32.0-36.0); MEAN PLATELET VOLUME 8.2 FL (7.0-11.0); MONO % 11.4 % (0.0-8.0); MONOCYTE # 0.4 TH/MM3 (0-0.9); PLATELET COUNT 219 TH/MM3 (150-450); RED BLOOD COUNT 4.37 MIL/MM3 (4.50-5.90); WHITE BLOOD COUNT 3.5 TH/MM3 (4.0-11.0)
[2017-06-09 00:31] LABS: ALBUMIN 3.4 GM/DL (3.4-5.0); ALT (GPT) 19 U/L (12-78); AST (GOT) 15 U/L (15-37); BLOOD UREA NITROGEN 18 MG/DL (7-18); CALCIUM 8.8 MG/DL (8.5-10.1); CHLORIDE 100 MEQ/L (98-107); CREATININE 1.04 MG/DL (0.60-1.30); GLOMERULAR FILTRATION RATE 103 ML/MIN (>89); GLUCOSE,RANDOM 72 MG/DL (74-106); MAGNESIUM 1.9 MG/DL (1.5-2.5); SODIUM (NA) 138 MEQ/L (136-145)
[2017-06-09 00:33] LABS: ALKALINE PHOSPHATASE 110 U/L (45-117); TOTAL BILIRUBIN ADULT 0.6 MG/DL (0.2-1.0); TOTAL PROTEIN 10.1 GM/DL (6.4-8.2)
--- NOTE | 2017-06-09 00:41 | PD ---
HPI Chief Complaint: GI Complaint Time Seen by Provider: 23:31 Travel History International Travel<30 days: No Contact w/Intl Traveler<30days: No Traveled to known affect area: No History of Present Illness HPI The patient is a 26 year old male who presents to the [facility] emergency department with a history of nausea vomiting that began at approximately 8:30 PM. The patient reports that the emesis initially consisted of food, however later he noticed some blood-tinged emesis. Patient reports that he then began to have generalized weakness and lightheaded sensation. He reports that earlier in the day he had a low blood sugar that was as low as 46. He reports that it did improve with eating. He reports that he last moved his bowels yesterday. He denies having any blood in his stool or black or tarry stools. The patient does report having a history of diabetes mellitus. He has been taking his medication as prescribed. The patient also reports having history of HIV. His last blood work was done 2 months ago. He reports that his blood work was "good". He does not know what his CD4 count or viral load was at that time. He reports that he has been taking his retroviral medications. The patient reports having abdominal pain around the center of his abdomen near his umbilicus. He reports that the abdominal pain is an aching sensation. He denies any alleviating or aggravating factors on review of systems otherwise, the patient denies having any known recent fevers, cough, congestion, neck pain , chest pain, shortness of breath, diarrhea, urinary symptoms, or neurologic symptoms. The patient has a history of peptic ulcer disease and gastritis. 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 The patient does report having problems with increased indigestion. [facility] Past Medical History Narrative Medical The patient's past medical history is significant for HIV, gastritis, asthma, diabetes mellitus. Asthma: Yes Autoimmune Disease: Yes (HIV) Blood Disorders: Yes (HIV) Cancer: No Cardiovascular Problems: No COPD: No Diabetes: Yes Patient Takes Glucophage: No Diminished Hearing: No Endocrine: Yes Gastrointestinal Disorders: Yes (GASTRITIS) Genitourinary: No Immune Disorder: Yes (HIV) Implanted Vascular Access Dvce: No Musculoskeletal: No Neurologic: No Psychiatric: No Reproductive: No Respiratory: Yes Sleep Apnea: No Thyroid Disease: No Tetanus Vaccination: < 5 Years Influenza Vaccination: Yes Past Surgical History Narrative Surgical The patient's past surgical history is significant for ankle surgery. Genitourinary Surgery: Yes (SCOPE) Pacemaker: No Other Surgery: Yes (ankle) Social History Alcohol Use: Yes (occasionally ) Tobacco Use: No Substance Use: No Allergies-Medications (Allergen,Severity, Reaction): Coded Allergies: aspirin (Verified Allergy, Severe, SWELLING, 05/18/17) Reported Meds & Prescriptions Reported Meds & Active Scripts Active Zofran Odt (Ondansetron Odt) 4 Mg Tab 4 Mg SL Q6HR PRN Protonix (Pantoprazole Sodium) 40 Mg Tab 40 Mg PO DAILY Protonix (Pantoprazole Sodium) 20 Mg Tab 20 Mg PO DAILY Reported [Hiv Med] PO DAILY Humulin R Inj (Insulin Human Regular) 1,000 Unit/10 Ml Vial 2-10 Units SQ TIDAC PRN IMPORTANT TO EAT A MEAL WITHIN 30-60 MINUTES OF DOSING Review of Systems Except as stated in HPI: all other systems reviewed are Neg General / Constitutional: No: Fever Eyes: No: Visual changes HENT: Positive: Lightheadedness, No: Headaches Cardiovascular: No: Chest Pain or Discomfort Respiratory: No: Shortness of Breath Gastrointestinal: Positive: Nausea, Vomiting, Abdominal Pain, Hematemesis, Indigestion, No: Diarrhea, Hematochezia, Constipation, Changes in Bowel Habits, Loss of Appetite Genitourinary: No: Dysuria Musculoskeletal: No: Pain Skin: No Rash Neurologic: Positive: Weakness (Generalized weakness), No: Focal Abnormalities , Change in Mentation, Slurred Speech, Sensory Disturbance Psychiatric: No: Depression Endocrine: No: Polydipsia Hematologic/Lymphatic: No: Easy Bruising Physical Exam Narrative General: The patient is a well-developed well-nourished male in no acute distress. Head and Neck exam: Head is normocephalic atraumatic. Eyes: EOMI, pupils are equal round and reactive to light. Nose: Midline septum with pink mucous membranes Mouth: Dentition unremarkable. Moist mucus membranes. Posterior oropharynx is not erythematous. No tonsillar hypertrophy. Uvula midline. Airway patent. Neck: No palpable lymphadenopathy. No nuchal rigidity. No thyromegaly. Cardiovascular: Regular rate and rhythm without murmurs, gallops, or rubs. Lungs: Clear to auscultation bilaterally. No wheezes, rhonchi, or rales. Abdomen: Soft, without tenderness to palpation in all 4 quadrants of the abdomen. No guarding, rebound, or rigidity. Normal bowel sounds are audible. No tenderness on palpation of McBurney's point. Extremities: No clubbing, cyanosis, or edema. 2+ pulses in all 4 extremities. No calf tenderness on palpation. Back: No spinous process tenderness to palpation. No costovertebral angle tenderness to palpation. Neurologic Exam: Grossly nonfocal. Skin Exam: No rash noted. Intact skin that is warm and dry. RECTAL EXAM: No masses or tenderness, stool is brown. The patient's stool is Hemoccult negative Data Data Last Documented VS Vital Signs Date Time Temp Pulse Resp B/P (MAP) Pulse Ox O2 Delivery O2 Flow Rate FiO2 06/09/17 00:13 20 06/08/17 23:24 97.2 75 124/69 (87) 100 Orders Orders Electrocardiogram (06/08/17 23:35) Complete Blood Count With Diff (06/08/17 23:35) Comprehensive Metabolic Panel (06/08/17 23:35) Prothrombin Time / Inr (Pt) (06/08/17 23:35) Act Partial Throm Time (Ptt) (06/08/17 23:35) Lipase (06/08/17 23:35) Urinalysis - C+S If Indicated (06/08/17 23:35) Magnesium (Mg) (06/08/17 23:35) Chest, Single Ap (06/08/17 23:35) Iv Access Insert/Monitor (06/08/17 23:35) Ecg Monitoring (06/08/17 23:35) Oximetry (06/08/17 23:35) Type And Screen (06/08/17 23:35) Sodium Chlor 0.9% 1000 Ml Inj (Ns 1000 M (06/09/17 00:15) Ondansetron Inj (Zofran Inj) (06/09/17 00:15) Pantoprazole Inj (Protonix Inj) (06/09/17 00:15) Red Blood Cells (Rbc) (06/09/17 00:04) Fresh Frozen Plasma (Ffp) (06/09/17 01:21) Blood Product Administration (06/09/17 01:21) Sodium Chlor 0.9% 250 Ml Inj (Ns 250 Ml (06/09/17 01:30) Potassium Chloride Eff (K-Lyte Cl Eff) (06/09/17 01:30) Blood Glucose (06/09/17 01:24) Ct Abd/Pel W Iv Contrast(Rout) (06/09/17 01:58) Iohexol 350 Inj (Omnipaque 350 Inj) (06/08/17 23:13) Ed Discharge Order (06/09/17 03:38) Labs Laboratory Tests Test 06/09/17 00:04 White Blood Count 3.5 TH/MM3 Red Blood Count 4.37 MIL/MM3 Hemoglobin 11.9 GM/DL Hematocrit 34.3 % Mean Corpuscular Volume 78.6 FL Mean Corpuscular Hemoglobin 27.2 PG Mean Corpuscular Hemoglobin Concent 34.6 % Red Cell Distribution Width 13.0 % Platelet Count 219 TH/MM3 Mean Platelet Volume 8.2 FL Neutrophils (%) (Auto) 57.0 % Lymphocytes (%) (Auto) 15.4 % Monocytes (%) (Auto) 11.4 % Eosinophils (%) (Auto) 8.2 % Basophils (%) (Auto) 8.0 % Neutrophils # (Auto) 2.0 TH/MM3 Lymphocytes # (Auto) 0.5 TH/MM3 Monocytes # (Auto) 0.4 TH/MM3 Eosinophils # (Auto) 0.3 TH/MM3 Basophils # (Auto) 0.3 TH/MM3 CBC Comment DIFF FINAL Differential Comment Prothrombin Time 10.0 SEC Prothromb Time International Ratio 1.0 RATIO Activated Partial Thromboplast Time 25.4 SEC Blood Urea Nitrogen 18 MG/DL Creatinine 1.04 MG/DL Random Glucose 72 MG/DL Total Protein 10.1 GM/DL Albumin 3.4 GM/DL Calcium Level 8.8 MG/DL Magnesium Level 1.9 MG/DL Alkaline Phosphatase 110 U/L Aspartate Amino Transf (AST/SGOT) 15 U/L Alanine Aminotransferase (ALT/SGPT) 19 U/L Total Bilirubin 0.6 MG/DL Sodium Level 138 MEQ/L Potassium Level 3.1 MEQ/L Chloride Level 100 MEQ/L Carbon Dioxide Level 31.0 MEQ/L Anion Gap 7 MEQ/L Estimat Glomerular Filtration Rate 103 ML/MIN Lipase 120 U/L MDM Medical Decision Making Medical Screen Exam Complete: Yes Emergency Medical Condition: Yes Medical Record Reviewed: Yes Interpretation(s) Vital Signs Date Time Temp Pulse Resp B/P (MAP) Pulse Ox O2 Delivery O2 Flow Rate FiO2 06/09/17 00:13 20 06/08/17 23:24 97.2 75 18 124/69 (87) 100 Differential Diagnosis Peptic ulcer disease, versus Mercedes-Aguirre tear, versus esophageal perforation, versus hemorrhagic esophagitis, versus irritation related to vomiting, versus gastritis Narrative Course During the course of the patient's emergency department visit, the patient's history, examination, and differential diagnosis were reviewed with the patient. The patient was placed on a manager emergency with oximetry and frequent blood pressure monitoring. The patient had IV access obtained and blood work sent for analysis. The patient had an EKG done on arrival that shows a sinus rhythm with a sinus arrhythmia, QRS duration is 105 ms, QTC [address] segment elevation. The patient was initially provided normal saline 1 L IV fluid bolus, Protonix 80 mg IV, Zofran 4 mg IV. The patient's laboratory studies were reviewed and remarkable for a white count of 3.5, hemoglobin 11.9, platelets 219 with monocytes 11.4. The patient's hemoglobin is stable compared to previously. CMP is remarkable for potassium 3.1 which was supplemented orally, glucose 72. Patient's glucose was rechecked and 77. Total protein 10.1. Lipase is 120. PT PTT within normal limit. Radiology studies were reviewed and remarkable for a chest x-ray that shows no acute cardiopulmonary disease, no free air. CT scan of the abdomen and pelvis shows mild fatty infiltration of the liver, no other acute abnormality. While the patient was observed in the emergency department, the patient had no further episodes of vomiting. The patient's vital signs have been stable. The patient will be discharged home to start back on a proton pump inhibitor with close follow-up with his primary care physician. I recommended that he call his physician in the morning to schedule an appointment for follow-up in the next 2 days. The patient is resting comfortably and feels better, is alert and in no distress. The patient's results and examination findings were discussed with the patient. The repeat examination is unremarkable and benign. The history, exam, diagnostic testing, and current condition do not suggest any significant pathology to warrant further testing, continued ED treatment, admission, or surgical evaluation at this point. The vital signs have been stable. The patient does not have uncontrollable pain, intractable vomiting, or other significant symptoms. The patient's condition is stable and appropriate for discharge. The patient will pursue further outpatient evaluation with a primary care physician or other designated or consulting physician as indicated in the discharge instructions. The patient expressed understanding and was agreeable with this plan. [facility] Point of Care Internal Pos. & Neg. Controls: Passed Fecal Specimen Occult Blood: Negative Diagnosis Primary Impression: Nausea & vomiting Qualified Codes: R11.2 - Nausea with vomiting, unspecified Referrals: Primary Care Physician 2 days Patient Instructions: Acute Nausea and Vomiting (ED), General Instructions Med/Other Pt SpecificInfo: Prescription(s) given Scripts Ondansetron Odt (Zofran Odt) 4 Mg Tab 4 MG SL Q6HR Y for Nausea/Vomiting, #7 TAB 0 Refills Prov: Ewa Warner MD 06/09/17 Pantoprazole (Protonix) 40 Mg Tab 40 MG PO DAILY for Ulcer Prevention, #30 TAB 0 Refills Prov: Ewa Warner MD 06/09/17 Disposition: 01 DISCHARGE HOME Condition: Stable Ewa Warner MD Jun 09, 2017 00:41
[2017-06-09] MEDS ORDERED: POTASSIUM CHLORIDE 25 MEQ EFFERVESCENT TAB PO ONE (01:30)
[2017-06-09] MEDS ORDERED: SODIUM CHLOR 0.9% 250 ML INJ 250 ML IV ONE (01:30)
[2017-06-09] MEDS ORDERED: PROT40TA PO (02:03)
[2017-06-09] MEDS ORDERED: ZOFR4TAB3 SL (02:04)
--- NOTE | 2017-06-09 03:35 | RADRPT ---
EXAM DATE/TIME: 06/09/2017 02:59 [facility] COMPARISON: CT ABDOMEN & PELVIS W CONTRAST, July 27, 2016, 7:58. INDICATIONS : Abdominal pain. IV CONTRAST: 96 cc Omnipaque 350 (iohexol) IV ORAL CONTRAST: No oral contrast ingested. RADIATION DOSE: 4.65 CTDIvol (mGy) MEDICAL HISTORY : HIV. Diabetes mellitus type 2. Gastritis, Asthma SURGICAL HISTORY : None. ENCOUNTER: Initial ACUITY: 1 day PAIN SCALE: 7/10 LOCATION: abdomen TECHNIQUE: Volumetric scanning of the abdomen and pelvis was performed. Using automated exposure control and ad justment of the mA and/or kV according to patient size, radiation dose was kept as low as reasonably achievable to obtain optimal diagnostic quality images. DICOM format image data is available electro nically for review and comparison. FINDINGS: LOWER LUNGS: The visualized lower lungs are clear. LIVER: Homogeneous mild fatty density without lesion. There is no dilation of the biliary tree. No calcifi ed gallstones. SPLEEN: Normal size without lesion. PANCREAS: Within normal limits. KIDNEYS: Normal in size and shape. There is no mass, stone or hydronephrosis. ADRENAL GLANDS: Within normal limits. VASCULAR: There is no aortic aneurysm. BOWEL/MESENTERY: The stomach, small bowel, and colon demonstrate no acute abnormality. There is no free intraperitone al air or fluid. Normal appendix. ABDOMINAL WALL: Within normal limits. RETROPERITONEUM: There is no lymphadenopathy. BLADDER: No wall thickening or mass. REPRODUCTIVE: Within normal limits. INGUINAL: There is no lymphadenopathy or hernia. MUSCULOSKELETAL: Within normal limits for patient age. CONCLUSION: Liver is slightly fatty infiltrated. Otherwise normal CT of the abdomen and pelvis. Dank Zabala MD on June 09, 2017 at 3:33 Board Certified Radiologist. This report was verified electronically.
--- NOTE | 2017-06-09 10:31 | EKG ---
Date Performed: 06/09/2017 Time Performed: 00:15:53 PTAGE: 26 years EKG: Sinus rhythm WITH SINUS ARRHYTHMIA NONSPECIFIC ST & T-WAVE ABNORMALITY BORDERLINE ECG Since the PREVIOUS TRACING , no significant change noted PREVIOUS TRACIN05/18/2017 17.02 DOCTOR: Gurdeep Tobias Interpretating Date/Time 06/09/2017 10:29:21
== END 2017-06-09 04:27 | disposition home or self-care (01) ==
LOC: NEPC 23:12
DX: R11.2 Nausea with vomiting, unspecified (principal); R94.31 Abnormal electrocardiogram [ECG] [EKG]; E11.9 Type 2 diabetes mellitus without complications; J45.909 Unspecified asthma, uncomplicated; B20 Human immunodeficiency virus [HIV] disease
CPT/HCPCS: 71045; 74177; 80053; 83690; 83735; 85025; 85610; 85730; 86077; 86850; 86870; 86880; 86900; 86901; 86902; 86920; 86922; 93005; 96365; 96375; 99285; C9113; J2405; J7030; Q9967